=== PATIENT | male | born 1930 | race Caucasian/White ===

== ENCOUNTER 2018-01-26 14:44 | Inpatient (IN) ==
--- NOTE | 2018-01-26 14:55 | Emergency Department Report ---
General Adult HPI - General Chief complaint: Fever Stated complaint: Difficulty breathing Time Seen by Provider: 01/26/18 14:53 Source: patient, family Mode of arrival: EMS Limitations: other (dementia) - History of Present Illness HPI narrative: 87 M presents to the emergency department with the chief complaint of shortness of breath and cough. Patient noted onset of symptoms approximately 48-72 hours ago. He was at home when his symptoms began. Symptoms of been persistent in nature since onset. Patient is requiring supplemental oxygen to maintain his oxygen saturation. He denies any current pain or discomfort. Cough is productive of yellow phlegm. Patient does live on his own his own residence at this time. - Related Data Home Medications Medication Instructions Recorded Confirmed Mycophenolate Mofetil 1,500 mg PO BID 07/01/17 01/26/18 Aspirin [Aspirin EC] 81 mg PO HS 10/09/17 01/26/18 Atenolol [Tenormin] 25 mg PO HS 10/09/17 01/26/18 Atorvastatin [Lipitor] 20 mg PO HS 10/09/17 01/26/18 Hydrocodone/APAP 7.5/325 [[place] 1 tab PO Q4H PRN 10/09/17 01/26/18 7.5/325] Meloxicam 15 mg PO DAILY PRN 10/09/17 01/26/18 PredniSONE [Deltasone 20 mg] 20 mg PO WB 01/26/18 01/26/18 Previous Rx's Medication Instructions Recorded Pantoprazole Tab [Protonix Tab] 40 mg PO ACB #30 tab 11/07/17 Allergies Allergy/AdvReac Type Severity Reaction Status Date / Time No Known Drug Allergies Allergy Unknown Verified 01/26/18 15:30 Review of Systems Constitutional: Denies: fever, chills Eyes: Denies: eye pain, vision change ENT: Denies: ear pain, throat pain Cardiovascular: Denies: chest pain, palpitations Respiratory: Reports: cough, dyspnea. Denies: wheezes Gastrointestinal: Denies: abdominal pain, nausea, vomiting, diarrhea Genitourinary: Denies: urgency, dysuria Musculoskeletal: Denies: back pain, arthralgia Integumentary: Denies: erythema, rash Neurological: Denies: headache, numbness, paresthesias Psychiatric: Denies: anxiety, depression Endocrine: Denies: polydipsia, polyuria Hematological/Lymphatic: Denies: easy bruising, lymphadenopathy Allergic/Immunologic: Denies: facial swelling, urticaria PFSH Patient Stated Medical History Cataracts Yes Dysphagia Yes Coronary Artery Disease Yes Hypertension Yes Other Cardiology Yes: history DVT Other Respiratory Yes: INTERSTITIAL LUNG DISEASE; PULMONARY FIBROSIS Other GI Yes: CONSTIPATION Hx Benign Prostatic Yes Hyperplasia Hx Kidney Stones Yes Other Yes: NEPHROLITHIASIS Clotting Problems Yes: DVT Other Musculoskeletal Yes: 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 Coronary artery disease-Right and left heart catheterization (07/24/16-Dr. Lopes ) - on medical management. HTN. BPH. H/o Nephrolithiasis. H/o DVT with Sara filter placed 2007 - ASA for anticoagulation. H/o subdural bleed ( secondary to fall) 2007 (w/ surgical evacuation). Osteoporosis. History of compression fractures Surgical History: H/o subdural bleed (secondary to fall) 2007 (w/ surgical intervention x 2). Sara filter placed (2007). Ureteral surgery () ( for "kinked" ureter?). cataract removal b/l. vertebroplasty. Esophageal diltation- 2017 Family History Updates: Father -PVD- leg amputation. Mother - pt is unsure of cause of . Sister - . Pt states she of a "broken heart" as she a few weeks after her . - Social History Smoking status: Former smoker second hand exposure: No Substance use type: does not use Alcohol intake frequency: does not drink Housing: house Household members: none Current occupational status: retired Does patient use chewing tobacco?: No Current residence: Apartment/Private Home Physical Exam - Limitations Limitations: no limitations - General General appearance: alert, in no apparent distress - Normal Exams: Head:: Normocephalic without trauma Eyes:: Pupils are PERRLA w/ EOMI, No scleral icterus, irritation, or foreign bodies noted ENMT:: No facial trauma, nasal exudates, pharyngeal erythema, or exudates are noted Dental: No fractured, loose, or missing teeth noted Neck:: Full range of motion, without adenopathy, JVD, bruits or thyromegaly Chest/Respirations:: Clear all lua (Bibasilar Rales), with good airflow, and symmetry bilaterally Cardiovascular:: Regular rate and rhythm, without murmur or gallop, Pulses 2+ all extremities, capillary refill, <2 seconds all extremities Abdomen:: Bowel sounds positive, soft, non-tender, non-distended, no hepatosplenomegaly, masses or bruits noted Lymphatic:: No lymphadenopathy, or lymphedema noted Musculoskeletal:: No tenderness (2+ BLE Pedal edema. ), or deformity noted, good range of motion, all extremities Integumentary:: No rashes (Patient does have 2 small dime sized decubiti on his sacral region without extending cellulitis or lymphangitis.), hives, or bruising noted, hair and nails, without abnormality Neurological:: Patient is alert, and oriented, cranial nerves, motor/sensory/ cerebellar, exams w/o gross deficits, to observation Medical Decision Making - [facility] Narrative Medical decision making narrative: Labs/imaging were discussed in detail with the patient and family and questions are answered. Patient was given 1.5 L of normal saline intravenously in the emergency department. He was given Rocephin 1 g intravenously at 1550 when sepsis was considered when the chest x-ray was reviewed. Patient was never hypotensive in the ED and does not have a lactic acid greater than 4. Patient was given 1 g of acetaminophen for treatment of fever. He denies any pain or discomfort. Patient was discussed with the hospitalist Dr. Garner will be admitted to her service in improved condition. Patient and family are in agreement with the current plan of management. No further orders from accepting physician is in agreement with the current plan of management. Patient is admitted to the hospital in improved condition. He was given Rocephin 1 g intravenously at 1550 when sepsis was considered when the chest x-ray was reviewed. Patient was also given Zithromax 500 mg IV times one. Patient was never hypotensive in the emergency Department and his lactic acid was less than 4. - Differential Diagnosis pneumonia, viral syndrome, URI, UTI - Lab Data Result diagrams: 01/26/18 15:02 01/26/18 15:02 - Radiology Data Chest x-ray: Chronic interstitial disease with densities in bilateral lower lobes most likely representing infiltrates. - EKG Data EKG #1 EKG results narrative: Sinus tachycardia. 116 bpm. No STEMI. Disposition Clinical Impression: Pneumonia Qualifiers: Pneumonia type: due to unspecified organism Laterality: unspecified laterality Lung location: unspecified part of lung Qualified Code(s): J18.9 - Pneumonia, unspecified organism Disposition: 02 To [facility] [place] Acute Care Condition: Stable Time of Disposition: 16:15 (Ad[address]. Dr. Garner.) - Seen By: physician
--- OUTSIDE RECORDS SUMMARY | 2018-01-26 15:13 | External Medical Summary | Referral Summary ---
:1930 Author Organization [facility], Pulmonary Address [address] [place] [address] Care Team Providers Name Role Phone Ashlee Ariel Primary Care Physician Encounter [facility] Date(s): 03/19/17 - 03/19/17 [facility], [facility] [address] [place] [address]- Discharge Diagnosis: ILD (interstitial lung disease) Discharge Disposition: 01-Home or Self Care Attending Physician: Aubrey Webster MD Admitting Physician: Aubrey Webster MD Problem List Condition Effective Dates Status Health Status Informant Hyperplasia prostate unspec w/o Active urinary obst(Confirmed) Cholelithiasis(Confirmed) Active Conductive hearing loss Active unspec(Confirmed) GERD(Confirmed) Active [place] filter in [address](Confirmed) Hx DVT(Confirmed)1 Active History of intracranial 2007 Resolved hemorrhage(Confirmed)2 Hx of pulmonary embolus(Confirmed)3 2007 Resolved ILD (interstitial lung Active disease)(Confirmed) NSIP (nonspecific interstitial Active pneumonitis)(Confirmed) Pneumonia organism Active unspecified(Confirmed) 1Hx DVT/Pe with [place] filter placed 2007.2Patient was off of his aspirin for surgical repair. He required alicia hole. He developed a pulmonary embolus.3He was off of his aspirin when he had his intracranial hemorrhage alicia hole surgery. He developed apulmonary embolus. Allergies, Adverse Reactions, Alerts No Known Medication Allergies Medications Aspir 81 81 mg, Oral, Daily, 0 Refill(s) Start Date: 03/22/14 Status: Orderedatenolol 25 mg, Oral, Daily, 0 Refill(s) Start Date: 09/24/16 Status: OrderedLipitor 20 mg, Oral, Daily, 0 Refill(s) Start Date: 09/24/16 Status: Orderedmycophenolate mofetil 500 mg oral tablet 1,500 mg 3 tabs, Oral, BID, # 180 tabs, 3 Refill(s), Pharmacy: [facility] #[id number], 3 tabs OralBID,x30 days Start Date: 12/26/16 Stop Date: 04/25/17 Status: OrderedpredniSONE 20 mg oral tablet 20 mg 1 tabs, Oral, Daily, X 30 days, # 30 tabs, 5 Refill(s), Pharmacy: [facility] #[id number], 1 tabs Oral Daily,x30 days Start Date: 03/19/17 Stop Date: 09/15/17 Status: Orderedtamsulosin 0.4 mg oral capsule See Instructions, TAKE ONE CAPSULE BY MOUTH DAILY, # 30 caps, 3 Refill(s), eRx: [facility] #[id number] Start Date: 01/17/17 Status: Ordered Immunizations Given and Recorded Vaccine Date Status Refusal Reason pneumococcal 13-valent conjugate vaccine 09/21/15 Given tetanus/diphth/pertuss (Tdap) adult/adol 09/21/15 Given influenza virus vaccine, live 04/29/13 Given influenza virus vaccine, live 05/10/12 Given Procedures Procedure Date Related Diagnosis Body Site Wallace hole1 2007 Evacuation of intracranial hemorrhage 2007 Sara filter, device Ureter surgery2 1Treatment of intracranial [id number]'s Social History Social History Type Response Smoking Status Former smoker; Type: Cigarettes; Started at age: 17; Stopped at age: 38; entered on: 03/22/14
--- OUTSIDE RECORDS SUMMARY | 2018-01-26 15:13 | External Medical Summary | Referral Summary ---
:1930 Author Organization [facility] Address [address] [place] [address] Care Team Providers Name Role Phone Ariel Rosado Primary Care Physician Encounter [facility] [id number] Date(s): 10/29/16 - 10/29/16 [facility] [address] [place] [address]- us Discharge Diagnosis: Dyspnea on exertion Discharge Diagnosis: Hx DVT Discharge Diagnosis: NSIP (nonspecific interstitial pneumonitis) Discharge Disposition: 01-Home or Self Care Attending Physician: Aubrey Webster MD Admitting Physician: Aubrey Webster MD Vital Signs Most recent to oldest [Reference Range]: 1 Peripheral Pulse Rate [60-100 bpm] 63 bpm (10/29/16 9:44 AM) Respiratory Rate [14-20 br/min] 20 br/min (10/29/16 9:44 AM) Blood Pressure [90-140/60-90 mmHg] 102/62 mmHg (10/29/16 9:44 AM) SpO2 95 % (10/29/16 9:44 AM) Problem List Condition Effective Dates Status Health Status Informant Hyperplasia prostate unspec w/o Active urinary obst(Confirmed) Cholelithiasis(Confirmed) Active Conductive hearing loss Active unspec(Confirmed) GERD(Confirmed) Active [place] filter in [address](Confirmed) Hx DVT(Confirmed)1 Active History of intracranial 2007 Resolved hemorrhage(Confirmed)2 Hx of pulmonary embolus(Confirmed)3 2007 Resolved Pneumonia organism Active unspecified(Confirmed) 1Hx DVT/Pe with [...] Daily, 0 Refill(s) Start Date: 09/24/16 Status: OrderedFlomax 0.4 mg oral capsule 0.4 mg 1 caps, Oral, Daily, # 30 caps, 5 Refill(s), Pharmacy: [facility] # [id number], 1 caps Oral Daily Start Date: 07/12/16 Status: OrderedLipitor 20 mg, Oral, Daily, 0 Refill(s) Start Date: 09/24/16 Status: Orderedmycophenolate mofetil 500 mg oral tablet See Instructions, Take 1 tablet twice a day X 21 days, then increase to 2 tabs twice a day. 1 hourbefore or 2 hours after meals DX: J84.9, # 120 Each, 3 Refill(s), Pharmacy: [facility] #[id number], Take 1 tablet twice a day X 21 days, then incr... Start Date: 10/29/16 Status: OrderedpredniSONE 20 mg oral tablet 40 mg 2 tabs, Oral, Daily, X 30 days, # 60 tabs, 6 Refill(s), Pharmacy: [facility] #[id number], 2 tabs Oral Daily,x30 days Start Date: 09/24/16 Stop Date: 04/22/17 Status: Ordered Results Hematology Most recent to oldest [Reference Range]: 1 WBC [4.8-10.8 10*3/uL] 8.2 10*3/uL (10/29/16 10:50 AM) RBC [4.60-6.20] 5.00 (10/29/16 10:50 AM) Hgb [14.0-18.0 gm/dL] 15.1 gm/dL (10/29/16 10:50 AM) Hct [42.0-52.0 %] 45.2 % (10/29/16 10:50 AM) MCV [82.0-99.0 fL] 90.4 fL (10/29/16 10:50 AM) MCH [27.0-32.0 pg] 30.2 pg (10/29/16 10:50 AM) MCHC [32.0-36.0 gm/dL] 33.4 gm/dL (10/29/16 10:50 AM) RDW [11.5-14.5 %] 14.1 % (10/29/16 10:50 AM) Platelet [150-400 10*3/uL] 240 10*3/uL (10/29/16 10:50 AM) MPV [8.8-14.8 fL] 9.1 fL (10/29/16 10:50 AM) Immature Granulocytes [0.0-1.0 %] 0.2 % (10/29/16 10:50 AM) Neutrophils [51-75 %] 93 % *HI* (10/29/16 10:50 AM) Lymphocytes [20-46 %] 4 % *LOW* (10/29/16 10:50 AM) Monocytes [4-11 %] 3 % *LOW* (10/29/16 10:50 AM) Eosinophils [0-4 %] 0 % (10/29/16 10:50 AM) Basophils [0-2 %] 0 % (10/29/16 10:50 AM) Neutro Absolute [1.90-7.00] 7.63 *HI* (10/29/16 10:50 AM) Lymph Absolute [0.80-3.30] 0.33 *LOW* (10/29/16 10:50 AM) Bay Absolute [0.30-1.00] 0.21 *LOW* (10/29/16 10:50 AM) Eos Absolute [0.00-0.50] 0.00 (10/29/16 10:50 AM) Baso Absolute [0.00-0.20] 0.01 (10/29/16 10:50 AM) Differential Scanned Slide (10/29/16 10:50 AM) Chemistry Most recent to oldest [Reference Range]: 1 Creatinine Lvl [0.72-1.25 mg/dL] 0.88 mg/dL (10/29/16 10:50 AM) eGFR [>60 mL/min] >60 mL/min 1 (10/29/16 10:50 AM) 1Result Comment: Multiply eGFR results by 1.21 for race. Immunizations Given and Recorded Vaccine Date Status Refusal Reason tetanus/diphth/pertuss (Tdap) adult/adol 09/21/15 Given influenza virus vaccine, live 04/29/13 Given influenza virus vaccine, live 05/10/12 Given pneumococcal 13-valent conjugate vaccine 09/21/15 Given Procedures Procedure Date Related Diagnosis Body Site Alicia hole1 2007 Evacuation of intracranial hemorrhage 2007 Sara filter, device Ureter surgery2 1Treatment of intracranial [id number]'s Social History Social History Type Response Smoking Status Former smoker; Type: Cigarettes; Started at age: 17; Stopped at age: 38 Assessment and Plan Extracted from: Title: Clinical Document Author: Amalia Waller RN Date: 10/29/16 Mycophenolate 500mg instructions: Take 1 tablet twice a day through November 17. Then, increase to 2 tablets twice a day. Prednisone 10mg instructions: Take 3 tablets daily through November 12, then decrease to 2 tablets daily through November 26, then decrease to 1 tablet daily until follow-up appointment in December Lab work instructions: Have blood drawn today, then once your start medication have lab work done once a week for 4 weeks then you can go every other week for 4 weeks or 2 more blood draws, then you can go to monthly blood draws. Return visit scheduled in December. If you have any questions or concerns call [phone] option 2, then option 2 and speak to one of the nurses.
--- NOTE | 2018-01-26 15:44 | XRay Report ---
EXAM: XR chest 1V HISTORY: cough COMPARISON: Prior examination dated 10/20/2017 and high-resolution CT scan of the chest dated 01/20/2018 FINDINGS: The lung lua are hypoventilated. The patient is rotated which somewhat limits the evaluation but there is no obvious tracheal deviation from the midline or mediastinal widening. The heart appears upper limits of normal size which is likely artifactual due to the hypoventilated state. There are again noted diffuse bilateral fibrotic lung changes but there is increased density superimposed at the lung bases which could be due to superimposed atelectasis or early infiltrate. The costophrenic angles remain clear. The bony thorax is stable. IMPRESSION: 1. Chronic fibrotic lung changes are again evident. The lung lua are hypoventilated with increased density at the lung bases that may be due to atelectasis or early infiltrate. .
[2018-01-26] MEDS ORDERED: ACETAMINOPHEN 500 MG TABLET PO SCH (15:45)
[2018-01-26] MEDS ORDERED: CEFTRIAXONE (ER USE ONLY) 1 GM in NS 100 ML IV ONE (15:50)
[2018-01-26] MEDS ORDERED: AZITHROMYCIN IV 500 MG in NS 250ml 250 ML IV ONE (16:21)
[2018-01-26] MEDS ORDERED: PROCHLORPERAZINE 10 MG/2 ML INJECTION IVP PRN (17:37)
[2018-01-26] MEDS ORDERED: MENTHOL COUGH DROPS (RICOLA) MM PRN (17:37)
[2018-01-26] MEDS ORDERED: ALBUTEROL/IPRATROPIUM 2.5mg-0.5mg/3ml NEB AEROSOL PRN (17:37)
[2018-01-26] MEDS ORDERED: FALL RISK - PHARMACY CONSULT MC ONE (17:57)
--- NOTE | 2018-01-26 18:55 | History & Physical Report ---
History of Present Illness Date: 01/26/18 Chief complaint: Fever, difficulty breathing HPI: Mr Negron is an 87 y/o male with interstitial lung disease and CAD who presents to [facility] ED via EMS secondary to fevers and difficulty breathing. Patient 's daughter reports he was very functional (able to drive around all over without problems) until the start of this year when he developed significant functional decline. He was hospitalized at [facility] in October of this very due to weakness and dehydrations - thought to be exacerbation of his interstitial lung disease. 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 Has established with Dr Ayala for pulmonary care now that Dr Webster retired. Started on home O2 2 weeks ago. With O2, saturations doing well when he is at rest, but drop as he is active. Reports increasing SOA over the last week. Not having cough/congestion or pain with breathing. Progressively more weak and unsteady with more dramatic decrease today. EMS activated. Given IVF Enroute to hospital. In ED, temp elevated at 102.5 and patient tachycardic with HR in 109 to 118 range. WBC with elevation to 11.6. CXR showing increasing density to lower lung field concerning for pneumonia. As patient meeting sepsis criteria, admitted to [facility] for further care and evaluation. Anticipated length of stay is thought to be greater than 2 midnight. Review of Systems - Constitutional Constitutional: Present: anorexia, fatigue, fever(s), weight loss - EEUTT Eyes: Absent: blurry vision, change in vision Ears: Absent: ear pain, tinnitus Nose: Absent: obstruction Mouth/Throat: Present: dry mouth. Absent: painful swallowing - Cardiovascular Cardiovascular: Present: edema. Absent: chest pain, palpitations - Respiratory Respiratory: Present: dyspnea, dyspnea on exertion. Absent: cough, pain on inspiration, chest congestion, excessive phlegm production - Gastrointestinal Gastrointestinal: Absent: abdominal pain, constipation, diarrhea, nausea, odynophagia, vomiting - Genitourinary Genitourinary: Present: nocturia. Absent: urinary frequency, urinary urgency - Musculoskeletal Musculoskeletal: Present: abnormal gait, back pain, muscle weakness. Absent: muscle cramps - Integumentary/Breasts Integumentary: Absent: rash - Neurological Neurological: Absent: focal weakness, memory loss - Endocrine Endocrine: Absent: excessive sweating, flushing - Allergic/Immunologic Allergic/Immunologic: Absent: tongue swelling, throat swelling, lip swelling Past Medical History Medical History Updates: Interstitial lung disease- on chronic steroids. Coronary artery disease-Right and left heart catheterization (07/24/16-Dr. Lopes ) - on medical management. HTN. BPH. H/o Nephrolithiasis. H/o DVT with [place] filter placed 2007 - ASA for anticoagulation. H/o subdural bleed ( secondary to fall) 2007 (w/ surgical evacuation). Osteoporosis. History of compression fractures Surgical History: H/o subdural bleed (secondary to fall) 2007 (w/ surgical intervention x 2). [place] filter placed (2007). Ureteral surgery () ( for "kinked" ureter?). cataract removal b/l. vertebroplasty. Esophageal diltation- 2017 Family History: Father had ASPVD - had leg amputation Mother has , cause of unknown Sister . Family History: As Above - Social History Smoking status: Former smoker Substance use type: does not use Alcohol intake frequency: does not drink Housing: house Household members: none ([place] checks on him frequently) Current occupational status: retired Current residence: Apartment/Private Home Social history: Dr Doll - PCP. Dr Lopes - Cardiology. Dr Ayala - Pulm. Medications Home Medications Medication Instructions Recorded Confirmed Type RX: Mycophenolate Mofetil 1,500 mg PO BID 07/01/17 01/26/18 History RX: Aspirin [Aspirin EC] 81 mg PO HS 10/09/17 01/26/18 History RX: Atenolol [Tenormin] 25 mg PO HS 10/09/17 01/26/18 History RX: Atorvastatin [Lipitor] 20 mg PO HS 10/09/17 01/26/18 History RX: Hydrocodone/APAP 7.5/325 1 tab PO Q4H PRN 10/09/17 01/26/18 History [[place] 7.5/325] RX: Meloxicam 15 mg PO DAILY PRN 10/09/17 01/26/18 History RX: Pantoprazole Tab [Protonix Tab] 40 mg PO ACB #30 tab 11/07/17 01/26/18 Rx PredniSONE [Deltasone 20 mg] 20 mg PO WB 01/26/18 01/26/18 History Allergies Allergy/AdvReac Type Severity Reaction Status Date / Time No Known Drug Allergies Allergy Unknown Verified 01/26/18 15:30 Exam Vital Signs: Temperature 100.1 F 01/26/18 17:06 Pulse Rate 97 01/26/18 18:26 Respiratory Rate 24 01/26/18 17:06 Blood Pressure 88/53 01/26/18 18:26 Pulse Oximetry 93 01/26/18 18:26 Height/Weight/BMI: Height 1.8 m Weight 56 kg Body Mass Index 17.2 - Constitutional Present: mild distress, well developed, thin, cooperative. Absent: combative, agitated, somnolent, obtunded - Routine HEENT Exam Head: Present: normocephalic, atraumatic Eye: Present: EOMI, PERRL, normal accommodation. Absent: conjunctival icterus ENT: Present: mucous membranes dry. Absent: dentition normal (Wears dentures) - Routine Neck Exam Present: supple, trachea midline. Absent: tracheal deviation - Routine Respiratory Exam Present: decreased breath sounds, prolonged expiratory phase, crackles ( fibrotic crackles diffusely), diminished air movement - Routine Cardiovascular Exam Present: no murmur, tachycardia - Routine Abdominal Exam Present: soft, non distended, non tender. Absent: normoactive bowel sounds ( decreased), rebound, guarding - Routine Extremities Exam Present: edema (+2 BLE), pulses intact, normal capillary refill. Absent: cyanosis, clubbing - Routine Skin Exam Present: dry, warm - Routine Neurological Exam Present: alert, oriented X3, CN II-XII intact, moving all extremities, vision grossly intact, hearing grossly intact, normal speech. Absent: motor deficit, altered mental status - Routine Psychiatric Exam Present: normal affect, normal thought process, cooperative. Absent: anxious, agitated Results - Labs CBC & Chem 7: 01/26/18 15:02 01/26/18 15:02 Assessment and Plan Assessment and Plan: Assessment Sepsis syndrome manifested by temp elevation to 102.5, tachycardia and tachypnea Pneumonia Interstitial lung disease with worsening respiratory status. Chronic hypoxic respiratory failure - on home O2 Functional decline Gait instability/Gen debility LE edema CAD HTN HDL GERD/esophageal stricture - S/P dilatation 11/07/17 Dysphagia - improved post esophageal stricture BPH Osteoporosis Underweight with BMI 17.2 Hx compression fracture to back - chronic back pain Hx kidney stones Hx [place] filter placement in 2007 Plan Inpatient admission to [facility] for treatment of sepsis syndrome secondary to pulmonary source. Initiate ceftriaxone and azithromycin for pulmonary coverage. Will utilize neb treatments of DuoNeb QID and q 4prn along with budesonide BID. Start Solu-Medrol 125mg IV q 6 hours to decrease pulmonary inflammation. Consult with Dr Ayala for pulmonary evaluation and recommendations. IVF given via EMS. Will give bolus of 500cc and then continue NS with 20 KCl at 100 cc/hr. Recheck lactate. Speech consult secondary to dysphagia. Continue Protonix BID. PT/OT consult to help improve strength and functional abilities. SCD for DVT prevention. Check TSH secondary to fatigue and functional decline. Check Prealbumin due to underweight. May continue home medications. Discussed code status with patient and his daughter - does have some ambivalence. Will have status full code. Care to return to Dr Doll at time of discharge from [facility]. DVT Prophylaxis: SCD's GI Prophylaxis: Protonix Resuscitation Status: Full Code - Physician Narrative Physician: Omar Arshad MD Narrative: Date: 01/26/18 Time: 184 Hospital Course Summary Disclaimer: The visit summary below is not to be considered part of the above Progress Note. Hospital Course: 01/26/18 Inpatient admission to [facility] for treatment of sepsis syndrome secondary to pulmonary source. Initiate ceftriaxone and azithromycin for pulmonary coverage. Will utilize neb treatments of DuoNeb QID and q 4prn along with budesonide BID. Start Solu-Medrol 125mg IV q 6 hours to decrease pulmonary inflammation. Consult with Dr Ayala for pulmonary evaluation and recommendations. IVF given via EMS. Will give bolus of 500cc and then continue NS with 20 KCl at 100 cc/hr. Recheck Lactate. Speech consult secondary to dysphagia. Continue Protonix BID. PT/OT consult to help improve strength and functional abilities. SCD for DVT prevention. Check TSH secondary to fatigue and functional decline. Check Prealbumin due to underweight. May continue home medications. Discussed code status with patient and his daughter - does have some ambivalence. Will have status full code. Care to return to Dr Doll at time of discharge from [facility].
[2018-01-26] MEDS: ALBUTEROL/IPRATROPIUM 2.5mg-0.5mg/3ml NEB AEROSOL SCH (18:57)
[2018-01-26] MEDS: BUDESONIDE INH.SOLN 0.5mg/2ml NEB AEROSOL SCH (18:57)
[2018-01-26] MEDS: METHYLPREDNISOLONE SOD SUCC 125mg/2ml INJECTION IVP SCH ×2 (19:30→21:41)
[2018-01-26] MEDS: NS with KCL 20 mEq 1,000 ML IV SCH (19:31)
[2018-01-26] MEDS: PANTOPRAZOLE 40 MG TABLET PO SCH (19:31)
[2018-01-26] MEDS ORDERED: NS 1,000 ML IV ONE (19:43)
[2018-01-26] MEDS: MELOXICAM 15 MG TABLET PO PRN ×2 (20:51→20:54)
[2018-01-26] MEDS: ATORVASTATIN 20 MG TABLET PO SCH (20:52)
[2018-01-26] MEDS: ATENOLOL 25 MG TABLET PO SCH (20:52)
[2018-01-26] MEDS: GUAIFENESIN/D-METHORPHAN 600mg/30mg TABLET PO SCH (20:53)
[2018-01-26] MEDS: ASPIRIN *EC* 81 MG TABLET PO SCH (21:12)
[2018-01-27] MEDS: NS with KCL 20 mEq 1,000 ML IV SCH ×2 (00:29→06:13)
[2018-01-27] MEDS: METHYLPREDNISOLONE SOD SUCC 125mg/2ml INJECTION IVP SCH ×4 (04:05→20:54)
[2018-01-27] MEDS: ALBUTEROL/IPRATROPIUM 2.5mg-0.5mg/3ml NEB AEROSOL SCH ×4 (06:29→18:36)
[2018-01-27] MEDS ORDERED: PANTOPRAZOLE 40 MG TABLET PO SCH (06:30)
[2018-01-27] MEDS: BUDESONIDE INH.SOLN 0.5mg/2ml NEB AEROSOL SCH ×2 (06:31→18:36)
[2018-01-27] MEDS: PANTOPRAZOLE 40 MG TABLET PO SCH ×2 (06:41→17:19)
[2018-01-27] MEDS: ACETAMINOPHEN 325 MG TABLET PO PRN ×2 (08:11→13:02)
[2018-01-27] MEDS: GUAIFENESIN/D-METHORPHAN 600mg/30mg TABLET PO SCH ×2 (08:11→20:55)
--- NOTE | 2018-01-27 10:12 | Progress Note ---
- Date 01/27/18 Subjective: F/U: Sepsis syndrome, Bacteremia, Pneumonia, Interstitial lung disease Doing okay this morning. Breathing about the same. No pain with breathing. Little congestion. Appetite stable. No nausea or vomiting. Denies ab pain. Did work with therapy-walked in halls. Weak in general. Objective Vital signs: Temperature 96.0 F L 01/27/18 07:37 Pulse Rate 82 01/27/18 07:37 Respiratory Rate 14 01/27/18 07:37 Blood Pressure 116/65 01/27/18 07:37 Pulse Oximetry 97 01/27/18 07:37 Height/Weight/BMI: Height 1.8 m Weight 61.9 kg Body Mass Index 17.2 - Constitutional Present: well developed, thin, cooperative - Routine HEENT Exam Head: Present: normocephalic, atraumatic Eye: Present: EOMI, PERRL ENT: Present: mucous membranes moist - Routine Respiratory Exam Present: decreased breath sounds, crackles (Diffuse faint), diminished air movement. Absent: respiratory distress - Routine Cardiovascular Exam Present: RRR, no murmur - Routine Abdominal Exam Present: soft, non distended, non tender. Absent: normoactive bowel sounds ( Decrease), guarding - Routine Extremities Exam Present: edema (+2 BLE). Absent: cyanosis, clubbing - Routine Musculoskeletal Exam Musculoskeletal: Present: no clubbing or cyanosis - Routine Skin Exam Present: dry, warm - Routine Neurological Exam Present: alert, oriented X3, CN II-XII intact, vision grossly intact, hearing grossly intact, normal speech. Absent: motor deficit, altered mental status - Routine Psychiatric Exam Present: normal affect, normal thought process, cooperative Results - Labs CBC & Chem 7: 01/27/18 05:40 01/27/18 05:40 Microbiology Results: Microbiology 01/26/18 15:08 Peripheral/Iv Start Gram Stain - Final 01/26/18 15:08 Peripheral/Iv Start Blood Culture - Preliminary Gram Negative Terrence 01/26/18 15:02 Peripheral/Iv Start Gram Stain - Final 01/26/18 15:02 Peripheral/Iv Start Blood Culture - Preliminary Gram Negative Terrence Assessment and Plan Assessment and Plan: Assessment Sepsis syndrome manifested by temp elevation to 102.5, tachycardia and tachypnea Bacteremia with Gram Neg Terrence Pneumonia Interstitial lung disease with worsening respiratory status. Chronic hypoxic respiratory failure - on home O2 at 2L Functional decline Gait instability/Gen debility LE edema CAD HTN HDL GERD/esophageal stricture - S/P dilatation 11/07/17 Dysphagia - improved post esophageal stricture BPH Osteoporosis Severe Protein Calorie malnutrition Underweight with BMI 17.2 Hx compression fracture to back - chronic back pain Hx kidney stones Hx [place] filter placement in 2007 Plan Continue ceftriaxone and azithromycin for pulmonary coverage. With positive Blood cultures, will repeat. Continue neb treatments of DuoNeb QID and q 4prn along with budesonide BID. Decrease Solu-Medrol to 62.5mg IV q 6 hours. Decrease IVF to 50cc/hr as oral drive starting to increase. PT/OT/Speech initiated to help improve functional status. Recheck CBC in am due to sepsis syndrome. Recheck BMP in am secondary to IVF. Case discussed with patient's daughter. Time spent with patient care 25 minutes. DVT Prophylaxis: SCD's GI Prophylaxis: Protonix Resuscitation Status: Full Code - Time spent with patient Time with patient PN: 25 minutes - Physician Narrative Physician: Omar Arshad MD Narrative: Date: 01/27/18 Time: 1009 Hospital Course Summary Disclaimer: The visit summary below is not to be considered part of the above Progress Note. Hospital Course: 01/26/18 Inpatient admission to [facility] for treatment of sepsis syndrome secondary to pulmonary source. Initiate ceftriaxone and azithromycin for pulmonary coverage. Will utilize neb treatments of DuoNeb QID and q 4prn along with budesonide BID. Start Solu-Medrol 125mg IV q 6 hours to decrease pulmonary inflammation. Consult with Dr Ayala for pulmonary evaluation and recommendations. IVF given via EMS. Will give bolus of 500cc and then continue NS with 20 KCl at 100 cc/hr. Recheck Lactate. Speech consult secondary to dysphagia. Continue Protonix BID. PT/OT consult to help improve strength and functional abilities. SCD for DVT prevention. Check TSH secondary to fatigue and functional decline. Check Prealbumin due to underweight. May continue home medications. Discussed code status with patient and his daughter - does have some ambivalence. Will have status full code. Care to return to Dr Doll at time of discharge from [facility]. 01/27/18 Continue ceftriaxone and azithromycin for pulmonary coverage. With positive Blood cultures, will repeat. Continue neb treatments of DuoNeb QID and q 4prn along with budesonide BID. Decrease Solu-Medrol to 62.5mg IV q 6 hours. Decrease IVF to 50cc/hr as oral drive starting to increase. PT/OT/Speech initiated to help improve functional status.
[2018-01-27] MEDS: 1/2 NS with KCL 20mEq 1,000 ML IV SCH (10:35)
[2018-01-27] MEDS ORDERED: PNEUMOCOCCAL 13 VACCINE 0.5ml INJECTION IM ONE (13:15)
--- NOTE | 2018-01-27 14:21 | Wound Care Progress Note ---
Wound Management - Patient Status Premedicated Prior to Dressing Change: No - Wound Right Medial Buttock Wound Type: Pressure Injury Wound Present on Admission?: Yes Wound Staging: Stage III (Pt states this spot comes and goes depending on how much he is sitting. He states he has been sitting alot lately) Length: 0.8 Width: 0.8 Depth: 0.1 Wound Bed Appearance: Slough Eva Wound Appearance: [place] Tunneling: No Undermining: No Drainage Description: Sanguineous Dressing Status: Changed Primary Dressing: Silver Dressing Secondary Dressing: Foam Dressing Dressing Change Date: 01/27/18 Dressing Change Time: 14:20 Dressing Change Patient Tolerance: Tolerated Well (Will reassess in 3 days) Microbiology: Microbiology 01/26/18 15:08 Peripheral/Iv Start Gram Stain - Final 01/26/18 15:08 Peripheral/Iv Start Blood Culture - Preliminary Gram Negative Terrence 01/26/18 15:02 Peripheral/Iv Start Gram Stain - Final 01/26/18 15:02 Peripheral/Iv Start Blood Culture - Preliminary Gram Negative Terrence Medial Back Wound Type: Pressure Injury Wound Present on Admission?: Yes Eva Wound Appearance: Blanched/Dull (Pt has a significant curvature of the spine and it is red and blanchable. No open areas. Encouraged pt to stay off his back.) Microbiology: Microbiology 01/26/18 15:08 Peripheral/Iv Start Gram Stain - Final 01/26/18 15:08 Peripheral/Iv Start Blood Culture - Preliminary Gram Negative Terrence 01/26/18 15:02 Peripheral/Iv Start Gram Stain - Final 01/26/18 15:02 Peripheral/Iv Start Blood Culture - Preliminary Gram Negative Terrence
[2018-01-27] MEDS: CEFTRIAXONE 1 G in D5W 100 ML IV SCH (15:14)
[2018-01-27] MEDS: AZITHROMYCIN IV 500 MG in NS 250ml 250 ML IV SCH (16:12)
--- NOTE | 2018-01-27 17:27 | Pulmonology Consult Note ---
History of Present Illness Consult date: 01/27/18 Requesting physician: Omar Arshad Reason for consult: dyspnea, pulmonary fibrosis Chief complaint: shortness of breath History of present illness: This is an 87 year old male with history of ILD. As reported by patient: Quality: dyspnea; shortness of breath on exertion with walking or carrying things. Stopping to rest relieves it. has an IVC filter due to history of PE Severity: moderate; limits activity Onset/Timing: daily Context: walking on level ground; walking up inclines; walking up stairs Pulmonary Disease History: ILD, followed and treated by Dr Aubrey Webster. I saw him in the office 01/13/18 for evaluation. Taking Cellcept and Prednisone. Alleviating Factors: relieved with rest Aggravating Factors: activity, felt to be due to history of woodworking Associated Symptoms: no chest pain; mild sputum production. Was seeing Dr Webster for ILD. He is treated with mycophenolate 1500 BID, and prednisone 20 mg daily. He started treatment for ILD around May 2017. He believes that this regimen was helping until recently and now he is feeling shortness of breath again. 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 He is hospitalized now for worsening dyspnea. He has been falling which may possibly be related to weakness and shortness of breath. According to the admission notes: He was hospitalized at [facility] in October of this very due to weakness and dehydrations - thought to be exacerbation of his interstitial lung disease. 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 In ED, temp elevated at 102.5 and patient tachycardic with HR in 109 to 118 range. WBC with elevation to 11.6. CXR showing increasing density to lower lung field concerning for pneumonia. As patient meeting sepsis criteria, admitted to [facility] for further care and evaluation. 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 Coronary artery disease-Right and left heart catheterization (07/24/16-Dr. Lopes ) - on medical management. HTN. BPH. H/o Nephrolithiasis. H/o DVT with [place] filter placed 2007 - ASA for anticoagulation. H/o subdural bleed ( secondary to fall) 2007 (w/ surgical evacuation). Osteoporosis. History of compression fractures Surgical History: H/o subdural bleed (secondary to fall) 2007 (w/ surgical intervention x 2). [place] filter placed (2007). Ureteral surgery () ( for "kinked" ureter?). cataract removal b/l. vertebroplasty. Esophageal diltation- 2017 Family History Updates: Father -PVD- leg amputation. Mother - pt is unsure of cause of . Sister - . Pt states she of a "broken heart" as she a few weeks after her . - Social History Smoking status: Former smoker second hand exposure: No Substance use type: does not use Alcohol intake frequency: does not drink Housing: house Household members: none Current occupational status: retired Does patient use chewing tobacco?: No Current residence: Apartment/Private Home Medications Home Medications Medication Instructions Recorded Confirmed Type Mycophenolate Mofetil 1,500 mg PO BID 07/01/17 01/26/18 History Aspirin [Aspirin EC] 81 mg PO HS 10/09/17 01/26/18 History Atenolol [Tenormin] 25 mg PO HS 10/09/17 01/26/18 History Atorvastatin [Lipitor] 20 mg PO HS 10/09/17 01/26/18 History Hydrocodone/APAP 7.5/325 [[place] 1 tab PO Q4H PRN 10/09/17 01/26/18 History 7.5/325] Meloxicam 15 mg PO DAILY PRN 10/09/17 01/26/18 History Pantoprazole Tab [Protonix Tab] 40 mg PO ACB #30 tab 11/07/17 01/26/18 Rx PredniSONE [Deltasone 20 mg] 20 mg PO WB 01/26/18 01/26/18 History Allergies Allergy/AdvReac Type Severity Reaction Status Date / Time No Known Drug Allergies Allergy Unknown Verified 01/26/18 15:30 Exam Vital signs: Temperature 95.4 F L 07/10/18 15:00 Pulse Rate 82 01/27/18 15:00 Respiratory Rate 16 01/27/18 15:00 Blood Pressure 106/60 01/27/18 15:00 Pulse Oximetry 100 01/27/18 15:00 - Constitutional no acute distress, thin - Routine HEENT Exam Head: Present: normocephalic, atraumatic Eye: Absent: conjunctival icterus ENT: Present: mucous membranes moist - Routine Neck Exam Present: supple. Absent: JVD - Routine Respiratory Exam Present: crackles. Absent: wheezes - Routine Cardiovascular Exam Present: RRR - Routine Abdominal Exam Present: soft - Routine Extremities Exam Absent: cyanosis, clubbing - Routine Skin Exam Present: intact. Absent: rash - Routine Neurological Exam Present: alert, oriented X3 Results - Laboratory Findings CBC and BMP: 01/27/18 05:40 01/27/18 05:40 Abnormal lab findings: Abnormal Labs 01/26/18 01/26/18 01/26/18 15:02 15:02 15:02 WBC 11.6 H RBC 3.53 L Hgb 10.6 L Hct 34.4 L MCHC 30.8 L RDW Std Deviation MPV 9.2 L Neutrophils % (Manual) 98.0 H Band Neutrophils % Lymphocytes % (Manual) Neutrophils # (Manual) 11.4 H Lymphocytes # (Manual) Chloride BUN 28.0 H Creatinine BUN/Creatinine Ratio 35 H Glucose Calculated Osmolality Calcium 7.6 L NT-Pro-B Natriuret Pep 2910 H Total Protein 5.1 L Albumin 2.7 L Prealbumin Vitamin B12 Urine Protein Urine Ketones Urine Occult Blood Urine Bilirubin Urine RBC 01/26/18 01/26/18 01/27/18 15:26 19:23 05:40 WBC RBC 3.08 L Hgb 9.4 L D Hct 30.5 L D MCHC 30.8 L RDW Std Deviation 51.5 H MPV Neutrophils % (Manual) 90.0 H Band Neutrophils % 9.0 H Lymphocytes % (Manual) 1.0 L Neutrophils # (Manual) Lymphocytes # (Manual) 0.1 L Chloride BUN Creatinine BUN/Creatinine Ratio Glucose Calculated Osmolality Calcium NT-Pro-B Natriuret Pep Total Protein Albumin Prealbumin 3.9 L Vitamin B12 > 1000 H Urine Protein Trace A Urine Ketones Trace A Urine Occult Blood 3+ A Urine Bilirubin 1+ A Urine RBC 20-30 H 01/27/18 05:40 WBC RBC Hgb Hct MCHC RDW Std Deviation MPV Neutrophils % (Manual) Band Neutrophils % Lymphocytes % (Manual) Neutrophils # (Manual) Lymphocytes # (Manual) Chloride 112 H BUN 24.0 H Creatinine 0.6 L D BUN/Creatinine Ratio 40 H Glucose 111 H Calculated Osmolality 282 H Calcium 6.6 L D NT-Pro-B Natriuret Pep Total Protein Albumin Prealbumin Vitamin B12 Urine Protein Urine Ketones Urine Occult Blood Urine Bilirubin Urine RBC - Diagnostic Findings Chest x-ray: report reviewed, image reviewed CT scan - chest: report reviewed, image reviewed Assessment and Plan (1) Acute and chronic respiratory failure with hypoxia Status: Acute Assessment and plan: continue O2 by NC (currently 2 lpm at rest) to keep sat >90%. Exercise oximetry with O2 titration. I suspect he will need higher O2 flows with exertion. 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 He is currently being managed on Cellcept and Predisone. I agree with IV corticosteroids at this time and will hold Cellcept. It is unclear whether the Cellcept is adding a great deal to his care at this time and we will discuss the possibility of stopping Cellcept and monitoring closely. He is scheduled for a PFT this Friday and we will defer that for now. Current Visit: Yes (3) Pneumonia Status: Acute Assessment and plan: Agree with empiric antibiotic with Rocephin and Azithromycin. He seems to be responding to this regimen as his fever is resolved Current Visit: Yes - Time Spent With Patient Total time spent is greater than 50% in coordination of care (as documented) at patient's floor/unit and/or counseling patient: 25 - 35 minutes
[2018-01-27] MEDS: ATENOLOL 25 MG TABLET PO SCH (20:55)
[2018-01-27] MEDS: ATORVASTATIN 20 MG TABLET PO SCH (20:55)
[2018-01-27] MEDS: ASPIRIN *EC* 81 MG TABLET PO SCH (20:55)
[2018-01-28] MEDS: METHYLPREDNISOLONE SOD SUCC 125mg/2ml INJECTION IVP SCH ×4 (03:15→21:45)
[2018-01-28] MEDS: PANTOPRAZOLE 40 MG TABLET PO SCH ×2 (06:05→16:28)
[2018-01-28] MEDS: ALBUTEROL/IPRATROPIUM 2.5mg-0.5mg/3ml NEB AEROSOL SCH ×4 (08:08→19:58)
[2018-01-28] MEDS: GUAIFENESIN/D-METHORPHAN 600mg/30mg TABLET PO SCH ×2 (09:02→21:45)
[2018-01-28] MEDS: 1/2 NS with KCL 20mEq 1,000 ML IV SCH (10:01)
[2018-01-28] MEDS ORDERED: FUROSEMIDE 20 MG/2 ML INJECTION IVP ONE (11:33)
--- NOTE | 2018-01-28 11:38 | Progress Note ---
- Date 01/28/18 Subjective: Mr Negron is seen this morning while resting in bed. He is chronically on 2 liters by nasal canula and is currently tolerating this. He denies having pain or feeling short of breath. Appetite has been decreased as he only at 50% of breakfast. He is noted to have extremity edema to both legs and arms. Abraham cath inplace. Objective Vital signs: Temperature 95.6 F L 01/28/18 07:00 Pulse Rate 84 01/28/18 07:00 Respiratory Rate 20 01/28/18 08:09 Blood Pressure 113/63 01/28/18 07:00 Pulse Oximetry 97 01/28/18 09:32 Height/Weight/BMI: Height 1.8 m Weight 62.1 kg Body Mass Index 19.0 - Constitutional Present: no acute distress, well nourished, well developed - Routine HEENT Exam Eye: Present: EOMI ENT: Present: mucous membranes moist, dentition normal - Routine Respiratory Exam Present: diminished air movement. Absent: wheezes - Routine Cardiovascular Exam Present: RRR, S1, S2. Absent: murmur - Routine Abdominal Exam Present: soft, normoactive bowel sounds, non distended. Absent: tenderness - Routine Extremities Exam Present: edema (bilateral arms and bilateral legs) - Routine Skin Exam Present: dry, warm - Routine Neurological Exam Present: alert, oriented X3, CN II-XII intact - Routine Lymphatic Exam Lymphatic: Absent: adenopathy - Routine Psychiatric Exam Present: normal affect, cooperative Results - Labs CBC & Chem 7: 01/28/18 04:51 01/28/18 04:51 Microbiology Results: Microbiology 01/26/18 15:08 Peripheral/Iv Start Gram Stain - Final 01/26/18 15:08 Peripheral/Iv Start Blood Culture - Final Escherichia coli 01/26/18 15:02 Peripheral/Iv Start Gram Stain - Final 01/26/18 15:02 Peripheral/Iv Start Blood Culture - Final Escherichia coli 01/28/18 04:51 Peripheral/Iv Start Blood Culture - Preliminary Culture Initiated - Results Pending 01/28/18 04:57 Peripheral/Iv Start Blood Culture - Preliminary Culture Initiated - Results Pending Assessment and Plan Assessment and Plan: Assessment Sepsis syndrome manifested by temp elevation to 102.5, tachycardia and tachypnea Bacteremia with E coli Pneumonia Interstitial lung disease with worsening respiratory status. Chronic hypoxic respiratory failure - on home O2 at 2L Functional decline Gait instability/Gen debility LE edema Right medial buttock pressure ulcer, Stage III - (POA) CAD HTN HDL GERD/esophageal stricture - S/P dilatation 11/07/17 Dysphagia - improved post esophageal stricture BPH Osteoporosis Severe Protein Calorie malnutrition Underweight with BMI 17.2 Hx compression fracture to back - chronic back pain Hx kidney stones Hx [place] filter placement in 2007 Plan Continue ceftriaxone and azithromycin for pulmonary coverage. Discontinue IV fluids. Monitor oral intake. Given lasix 20 mg IV x1. Presence of edema to all extremities. Weight up 6Kg from admission Repeat blood cultures drawn this morning Continue neb treatments of DuoNeb QID and q 4prn along with budesonide BID. Continue to follow daily labs DVT Prophylaxis: SCD's Resuscitation Status: Full Code - Time spent with patient Time with patient PN: 25 minutes - Physician Narrative Physician: Omar Arshad MD Narrative: Date: 01/28/18 Time: 1557 Have independently interviewed and examined pt. Chart reviewed. Case discussed with my SMELTER OPERATOR. Care plan developed with my supervision; agree with above. Doing okay. Breathing alright at rest, but winds readily with activities. Not having cough/congestion; no pain with breathing. Appetite fair. No ab pain or nausea. No stool since admission-pt reports it's not uncommon for him to go 3 days between bowel movements. Strength decreased-working with therapy, but very taxing. Lungs: decreased, scattered crackles. CV: regular AB: soft nt BS decreased MSE: awake alert appropriate Plan: Continue with Rocephin and azithromycin for pulm coverage-Rocephin covering E coli bacteremia. Continue steroids. Encourage work with therapy to help functional status. Add daily Miralax (holding with loose stool) to help with bowel function. Monitor lab. Hospital Course Summary Disclaimer: The visit summary below is not to be considered part of the above Progress Note. Hospital Course: 01/26/18 [place]patient admission [place] [facility] of sepsis syndrome secondary to pulmonary source. Initiate ceftriaxone and azithromycin for pulmonary coverage. Will utilize neb treatments of DuoNeb QID and q 4prn along with budesonide BID. Start Solu-Medrol 125mg IV q 6 hours to decrease pulmonary inflammation. Consult with Dr Ayala for pulmonary evaluation and recommendations. IVF given via EMS. Will give bolus of 500cc and then continue NS with 20 KCl at 100 cc/hr. Recheck Lactate. Speech consult secondary to dysphagia. Continue Protonix BID. PT/OT consult to help improve strength and functional abilities. SCD for DVT prevention. Check TSH secondary to fatigue and functional decline. Check Prealbumin due to underweight. May continue home medications. Discussed code status with patient and his daughter - does have some ambivalence. Will have status full code. Care to return to Dr Doll at time of discharge from [facility]. 01/27/18 Continue ceftriaxone and azithromycin for pulmonary coverage. With positive Blood cultures, will repeat. Continue neb treatments of DuoNeb QID and q 4prn along with budesonide BID. Decrease Solu-Medrol to 62.5mg IV q 6 hours. Decrease IVF to 50cc/hr as oral drive starting to increase. PT/OT/Speech initiated to help improve functional status. 01/28/18 Continue ceftriaxone and azithromycin for pulmonary coverage. BS positive with E coli -sensitive to ceftriaxone. Repeat blood cultures drawn this morning Discontinue IV fluids. Monitor oral intake. Nutritional supplements. Given lasix 20 mg IV x1. Presence of edema to all extremities. Weight up 6Kg from admission. Continue neb treatments of DuoNeb QID and q 4prn along with budesonide BID. Continue to follow daily labs.
[2018-01-28] MEDS: BUDESONIDE INH.SOLN 0.5mg/2ml NEB AEROSOL SCH ×2 (11:58→19:57)
[2018-01-28] MEDS: CEFTRIAXONE 1 G in D5W 100 ML IV SCH (15:09)
[2018-01-28] MEDS: AZITHROMYCIN IV 500 MG in NS 250ml 250 ML IV SCH (16:06)
[2018-01-28] MEDS: NS FLUSH BAG 500ml IV PRN (16:12)
[2018-01-28] MEDS: POLYETHYL GLYCOL 3350 17gm PACKET PO SCH (16:28)
[2018-01-28] MEDS: ATORVASTATIN 20 MG TABLET PO SCH (20:44)
[2018-01-28] MEDS: HYDROCODONE/APAP 7.5 MG/325 MG TABLET PO PRN (20:44)
[2018-01-28] MEDS: ASPIRIN *EC* 81 MG TABLET PO SCH (20:44)
[2018-01-28] MEDS: ATENOLOL 25 MG TABLET PO SCH (20:45)
[2018-01-28] MEDS: SALINE FLUSH 10ml SYRINGE IVF PRN (21:45)
[2018-01-29] MEDS: METHYLPREDNISOLONE SOD SUCC 125mg/2ml INJECTION IVP SCH ×4 (03:35→20:46)
[2018-01-29] MEDS: PANTOPRAZOLE 40 MG TABLET PO SCH ×2 (06:30→16:37)
[2018-01-29] MEDS: ALBUTEROL/IPRATROPIUM 2.5mg-0.5mg/3ml NEB AEROSOL SCH ×4 (07:24→19:27)
[2018-01-29] MEDS: BUDESONIDE INH.SOLN 0.5mg/2ml NEB AEROSOL SCH ×2 (07:27→19:27)
[2018-01-29] MEDS: GUAIFENESIN/D-METHORPHAN 600mg/30mg TABLET PO SCH ×2 (09:31→20:47)
[2018-01-29] MEDS: SALINE FLUSH 10ml SYRINGE IVF PRN ×2 (09:32→20:48)
[2018-01-29] MEDS: POLYETHYL GLYCOL 3350 17gm PACKET PO SCH (09:32)
--- NOTE | 2018-01-29 09:49 | Progress Note ---
- Date 01/29/18 Subjective: Evita is seen today in follow up with his daughter at his bedside. He states that overall he is feeling "pretty good". Does not have any complaints. Remains on home oxygen. Denies pain. Continues to have 3+ BLE edema on examination. Abraham cath intact. Objective Vital signs: Temperature 96.9 F 01/29/18 07:43 Pulse Rate 83 01/29/18 07:43 Respiratory Rate 20 01/29/18 07:43 Blood Pressure 117/61 01/29/18 07:43 Pulse Oximetry 99 01/29/18 07:43 Height/Weight/BMI: Height 1.8 m Weight 62.2 kg Body Mass Index 19.0 - Constitutional Present: no acute distress, well nourished, well developed - Routine HEENT Exam Eye: Present: EOMI ENT: Present: mucous membranes moist, dentition normal - Routine Respiratory Exam Present: diminished air movement. Absent: wheezes - Routine Cardiovascular Exam Present: RRR, S1, S2. Absent: murmur - Routine Abdominal Exam Present: soft, normoactive bowel sounds, non distended. Absent: tenderness - Routine Extremities Exam Present: edema (3+ BLE) - Routine Skin Exam Present: dry, warm - Routine Neurological Exam Present: alert, oriented X3, CN II-XII intact - Routine Lymphatic Exam Lymphatic: Absent: adenopathy - Routine Psychiatric Exam Present: normal affect, normal thought process, cooperative Results - Labs CBC & Chem 7: 01/29/18 04:33 01/29/18 04:33 Microbiology Results: Microbiology 01/28/18 04:51 Peripheral/Iv Start Blood Culture - Preliminary No Growth After 1 Day 01/28/18 04:57 Peripheral/Iv Start Blood Culture - Preliminary No Growth After 1 Day 01/26/18 15:08 Peripheral/Iv Start Gram Stain - Final 01/26/18 15:08 Peripheral/Iv Start Blood Culture - Final Escherichia coli 01/26/18 15:02 Peripheral/Iv Start Gram Stain - Final 01/26/18 15:02 Peripheral/Iv Start Blood Culture - Final Escherichia coli Assessment and Plan Assessment and Plan: Assessment Sepsis syndrome manifested by temp elevation to 102.5, tachycardia and tachypnea Bacteremia with E coli Pneumonia Interstitial lung disease with worsening respiratory status. Chronic hypoxic respiratory failure - on home O2 at 2L Functional decline Gait instability/Gen debility LE edema Right medial buttock pressure ulcer, Stage III - (POA) CAD HTN HDL GERD/esophageal stricture - S/P dilatation 11/07/17 Dysphagia - improved post esophageal stricture BPH Osteoporosis Severe Protein Calorie malnutrition Underweight with BMI 17.2 Hx compression fracture to back - chronic back pain Hx kidney stones Hx [place] filter placement in 2007 Plan Continue ceftriaxone 1 gm daily will cover E-Coli bacteremia- Recommendations Tx for 7-14 days Continue azithromycin day 4/5 for pulmonary coverage. Can Dc after tomorrow Asked nursing staff to place bri hose to BLE for compression Could consider scheduling diuretics Continue neb treatments of DuoNeb QID and q 4prn along with budesonide BID. On baseline oxygen DVT Prophylaxis: SCD's, BRI Hose Resuscitation Status: Full Code - Time spent with patient Time with patient PN: 25 minutes - Physician Narrative Physician: Omar Arshad MD Narrative: Date: 01/29/18 Time: 1606 Have independently interviewed and examined pt. Chart reviewed. Case discussed with my ORACLE ERP DEVELOPER. Care plan developed with my supervision; agree with above. Making gains. Breathing feeling easier-less SOA and congested. No pain with breathing. Appetite fair. Stools slow. Did work with therapy and walked some today. Lungs: decreased, slight increase in air movement. No distress with O2 CV: regular AB: soft nt/nd BS decreased MSE: awake alert appropriate Plan: Continue antibiotics, steroids, and breathing treatments. Will recheck CXR tomorrow. Lasix 20mg IV x1 to help motivate edema. Encourage activities. Work on bowel function-Miralax started yesterday, prn meds not been given. Monitor lab. Hospital Course Summary Disclaimer: The visit summary below is not to be considered part of the above Progress Note. Hospital Course: 01/26/[address] [facility] of sepsis syndrome secondary to pulmonary source. Initiate ceftriaxone and azithromycin for pulmonary coverage. Will utilize neb treatments of DuoNeb QID and q 4prn along with budesonide BID. Start Solu-Medrol 125mg IV q 6 hours to decrease pulmonary inflammation. Consult with Dr Ayala for pulmonary evaluation and recommendations. IVF given via EMS. Will give bolus of 500cc and then continue NS with 20 KCl at 100 cc/hr. Recheck Lactate. Speech consult secondary to dysphagia. Continue Protonix BID. PT/OT consult to help improve strength and functional abilities. SCD for DVT prevention. Check TSH secondary to fatigue and functional decline. Check Prealbumin due to underweight. May continue home medications. Discussed code status with patient and his daughter - does have some ambivalence. Will have status full code. Care to return to Dr Doll at time of discharge from [facility]. 01/27/18 Continue ceftriaxone and azithromycin for pulmonary coverage. With positive Blood cultures, will repeat. Continue neb treatments of DuoNeb QID and q 4prn along with budesonide BID. Decrease Solu-Medrol to 62.5mg IV q 6 hours. Decrease IVF to 50cc/hr as oral drive starting to increase. PT/OT/Speech initiated to help improve functional status. 01/28/18 Continue ceftriaxone and azithromycin for pulmonary coverage. BS positive with E coli -sensitive to ceftriaxone. Repeat blood cultures drawn this morning Discontinue IV fluids. Monitor oral intake. Nutritional supplements. Given lasix 20 mg IV x1. Presence of edema to all extremities. Weight up 6Kg from admission. Continue neb treatments of DuoNeb QID and q 4prn along with budesonide BID. Continue to follow daily labs. 01/29/18 Continue ceftriaxone 1 gm daily will cover E-Coli bacteremia- Recommendations Tx for 7-14 days Continue azithromycin day 4/5 for pulmonary coverage. Can Dc after tomorrow Asked nursing staff to place bri hose to BLE for compression Could consider scheduling diuretics Continue neb treatments of DuoNeb QID and q 4prn along with budesonide BID. On baseline oxygen
--- NOTE | 2018-01-29 12:50 | Pulmonology Progress Note ---
Subjective Principal diagnosis: pulmonary fibrosis Interval history: seems to be feeling better. no cough or sputum. no new fever on 1-2 lpm O2 Exam Vital signs: Temperature 96.9 F 01/29/18 07:43 Pulse Rate 83 01/29/18 07:43 Respiratory Rate 18 01/29/18 11:08 Blood Pressure 117/61 01/29/18 07:43 Pulse Oximetry 99 01/29/18 07:43 Inpatient Medications: Generic Name Dose Route Start Last Admin Trade Name Freq PRN Reason Stop Dose Admin Acetaminophen 650 mg 01/26/18 17:37 01/27/18 13:02 Tylenol PO 650 mg Q5H PRN Administration Discomfort Hydrocodone Bitart/Acetaminophen 1 tab 01/26/18 17:37 01/28/18 20:44 [place] 7.5/325 PO 1 tab Q4H PRN Administration Pain Albuterol/Ipratropium 3 ml 01/26/18 19:00 01/29/18 11:07 Duoneb AEROSOL 3 ml RTQID MANAN Administration Albuterol/Ipratropium 3 ml 01/26/18 17:37 Duoneb AEROSOL Q4HR PRN Shortness of air Aspirin 81 mg 01/26/18 21:00 01/28/18 20:44 Ecotrin PO 81 mg HS MANAN Administration Atenolol 25 mg 01/26/18 21:00 01/28/18 20:45 Tenormin PO 25 mg HS MANAN Administration Atorvastatin Calcium 20 mg 01/26/18 21:00 01/28/18 20:44 Lipitor PO 20 mg HS MANAN Administration Bisacodyl 10 mg 01/26/18 17:37 Dulcolax RECTALLY DAILY PRN Constipation Budesonide 0.5 mg 01/26/18 19:00 01/29/18 07:27 Pulmicort Inhalation AEROSOL 0.5 mg RTBID MANAN Administration Guaifenesin/Dextromethorphan 1 tab 01/26/18 21:00 01/29/18 09:31 Mucinex Dm PO 1 tab BID MANAN Administration Azithromycin 500 mg/ Sodium 250 mls @ 167 mls/hr 01/27/18 16:00 01/28/18 18: 07 Chloride IV Infused Q24H MANAN Infusion Ceftriaxone Sodium 1 g/ 100 mls @ 200 mls/hr 01/27/18 16:00 01/28/18 16:06 Dextrose IV Infused Q24H MANAN Infusion Magnesium Hydroxide 30 ml 01/26/18 17:37 Mom PO DAILY PRN Constipation Meloxicam 15 mg 01/26/18 17:37 01/26/18 20:54 Mobic PO 15 mg DAILY PRN Administration Pain Menthol 1 lozenge 01/26/18 17:37 Ricola Sf MM PRN PRN Cough Methylprednisolone Sodium Succinate 62.5 mg 01/27/18 15:00 01/29/18 09:32 Solu-Medrol IVP 62.5 mg Q6HR MANAN Administration Pantoprazole Sodium 40 mg 01/26/18 18:44 01/29/18 06:30 Protonix Tab PO 40 mg ACBID MANAN Administration Polyethylene Glycol 17 gm 01/28/18 16:00 01/29/18 09:32 Miralax PO 17 gm DAILY MANAN Administration Prochlorperazine Edisylate 10 mg 01/26/18 17:37 Compazine Iv IVP Q6H PRN Nausea &/or vomiting Sodium Chloride 10 - 80 ml 01/26/18 14:54 01/29/18 09:32 Iv Flush IVF 20 ml PRN PRN Administration [place] Sodium Chloride 500 ml 01/28/18 16:07 01/28/18 16:12 Normal Saline IV 500 ml PRN PRN Administration Discontinued Medications Generic Name Dose Route Start Last Admin Trade Name Freq PRN Reason Stop Dose Admin Acetaminophen 1,000 mg 01/26/18 15:45 01/26/18 15:54 Tylenol PO 1,000 mg O MANAN Administration Furosemide 20 mg 01/28/18 11:33 01/28/18 11:50 Lasix 20 Mg/2 Ml IVP 01/28/18 11:34 20 mg ONCE ONE Administration Ceftriaxone Sodium 1 gm/ 100 mls @ 200 mls/hr 01/26/18 15:50 01/26/18 16:30 Sodium Chloride IV 01/26/18 16:19 Infused O ONE Infusion Sodium Chloride 500 mls @ 999.9 mls/hr 01/26/18 16:04 Normal Saline IV 01/26/18 16:33 .Q30M ONE Azithromycin 500 mg/ Sodium 250 mls @ 167 mls/hr 01/26/18 16:21 01/26/18 18: 13 Chloride IV 01/26/18 17:50 Infused O ONE Infusion Potassium Chloride/Sodium Chloride 1,000 mls @ 100 mls/hr 01/26/18 17:37 05/07 10:48 Ns With Kcl 20 Meq Premix IV Infused .Q10H MANAN Infusion Sodium Chloride 500 mls @ 999.9 mls/hr 01/26/18 18:32 01/26/18 19:04 Normal Saline IV 01/26/18 19:01 Infused .Q30M ONE Infusion Sodium Chloride 1,000 mls @ 999.9 mls/hr 01/26/18 19:43 01/26/18 21:00 Normal Saline IV 01/26/18 20:42 Infused .Q1H ONE Infusion Potassium Chloride/Sodium Chloride 1,000 mls @ 50 mls/hr 01/27/18 10:18 01/28 11:50 1/2 Ns With Kcl 20meq Premix IV Infused .Q20H MANAN Infusion Methylprednisolone Sodium Succinate 125 mg 01/26/18 17:37 01/27/18 08:11 Solu-Medrol IVP 125 mg Q6HR MANAN Administration Pantoprazole Sodium 40 mg 01/27/18 06:30 Protonix Tab PO ACB [facility] Pharmacy Consult 1 each 01/26/18 17:57 Pharmacy Consult - Fall Risk [facility] 01/26/18 17:58 ONE TIME ONE Pneumococcal 7-Valent Conj Vacc 0.5 ml 01/27/18 13:15 01/27/18 13:28 Prevnar 13 IM 01/27/18 13:16 0.5 ml .ONCE ONE Administration - Constitutional no acute distress, thin, cooperative - Routine HEENT Exam Head: Present: normocephalic, atraumatic Eye: Absent: conjunctival icterus ENT: Present: mucous membranes moist - Routine Neck Exam Present: supple - Routine Respiratory Exam Present: crackles. Absent: accessory muscle use - Routine Cardiovascular Exam Present: RRR - Urinary Catheter Management Urethral Cath placed during this visit: yes Insertion date: 01/26/18 Results - Laboratory Findings Laboratory: Laboratory Results - last 48 hr 01/28/18 01/28/18 01/29/18 04:51 04:51 04:33 WBC 7.8 9.3 RBC 2.94 L 2.93 L Hgb 8.9 L 8.8 L Hct 29.0 L 28.8 L MCV 98.6 98.3 MCH 30.3 30.0 MCHC 30.7 L 30.6 L RDW Std Deviation 50.0 49.5 Plt Count 146 122 L MPV 10.1 10.4 Immature Gran % (Auto) Not performed Not performed Neut % (Auto) Not performed Not performed Lymph % (Auto) Not performed Not performed [place] % (Auto) Not performed Not performed Eos % (Auto) Not performed Not performed Baso % (Auto) Not performed Not performed Neut # (Auto) Not performed Not performed Lymph # (Auto) Not performed Not performed [place] # (Auto) Not performed Not performed Eos # (Auto) Not performed Not performed Baso # (Auto) Not performed Not performed Abs Immat Gran (auto) Not performed Not performed Neutrophils % (Manual) 98.0 H 98.0 H Band Neutrophils % 1.0 Lymphocytes % (Manual) 2.0 L 1.0 L Neutrophils # (Manual) 7.6 9.1 H Band Neutrophils # 0.1 Lymphocytes # (Manual) 0.2 L 0.1 L Poikilocytosis 3+ 3+ Anisocytosis 1+ Ovalocytes 1+ Helmet Cells 1+ 1+ [place] Cells 1+ Acanthocytes (Spur) 2+ 2+ Schistocytes 1+ 1+ RBC Morph Comment Abnormal Abnormal Turbidity < 20 Sodium 141 Potassium 4.2 Chloride 111 H Carbon Dioxide 25 Anion Gap 5 BUN 32.0 H Creatinine 0.8 D GFR Calculation 92 BUN/Creatinine Ratio 40 H Glucose 265 H Calculated Osmolality 287 H Calcium 6.2 L Icterus Index < 2 Specimen Hemolysis < 15 01/29/18 04:33 WBC RBC Hgb Hct MCV MCH MCHC RDW Std Deviation Plt Count MPV Immature Gran % (Auto) Neut % (Auto) Lymph % (Auto) [place] % (Auto) Eos % (Auto) Baso % (Auto) Neut # (Auto) Lymph # (Auto) [place] # (Auto) Eos # (Auto) Baso # (Auto) Abs Immat Gran (auto) Neutrophils % (Manual) Band Neutrophils % Lymphocytes % (Manual) Neutrophils # (Manual) Band Neutrophils # Lymphocytes # (Manual) Poikilocytosis Anisocytosis Ovalocytes Helmet Cells [place] Cells Acanthocytes (Spur) Schistocytes RBC Morph Comment Turbidity < 20 Sodium 140 Potassium 4.6 Chloride 111 H Carbon Dioxide 26 Anion Gap 3 L BUN 40.0 H Creatinine 0.8 GFR Calculation 92 BUN/Creatinine Ratio 50 H Glucose 201 H Calculated Osmolality 285 H Calcium 6.4 L Icterus Index < 2 Specimen Hemolysis < 15 - Diagnostic Findings Chest x-ray: report reviewed, image reviewed Assessment and Plan (1) Acute and chronic respiratory failure with hypoxia Status: Acute Assessment and plan: continue O2 by NC (currently 1-2 lpm at rest) to keep sat >90%. Exercise oximetry with O2 titration. I suspect he will need higher O2 flows with exertion. 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 He is currently being managed on Cellcept and Predisone. I agree with IV corticosteroids at this time and will hold Cellcept. It is unclear whether the Cellcept is adding a great deal to his care at this time and we will discuss the possibility of stopping Cellcept and monitoring closely. He is scheduled for a PFT this Friday and we will defer that for now. Seems to be improving and may be able to discharge soon with outpatient followup. Consider discontinuing Cellcept on discharge Current Visit: Yes (3) Pneumonia Status: Acute Assessment and plan: Agree with empiric antibiotic with Rocephin and Azithromycin. He seems to be responding to this regimen as his fever is resolved and can likely change to PO antibiotics upon discharge Current Visit: Yes - Time Spent With Patient Total time spent is greater than 50% in coordination of care (as documented) at patient's floor/unit and/or counseling patient: less than 15 minutes
[2018-01-29] MEDS: CEFTRIAXONE 1 G in D5W 100 ML IV SCH (15:25)
[2018-01-29] MEDS ORDERED: FUROSEMIDE 20 MG/2 ML INJECTION IVP ONE (16:05)
[2018-01-29] MEDS: BISACODYL 10 MG SUPPOSITORY RECTALLY PRN (16:37)
[2018-01-29] MEDS: AZITHROMYCIN IV 500 MG in NS 250ml 250 ML IV SCH (16:37)
[2018-01-29] MEDS: ATORVASTATIN 20 MG TABLET PO SCH (20:47)
[2018-01-29] MEDS: HYDROCODONE/APAP 7.5 MG/325 MG TABLET PO PRN (20:47)
[2018-01-29] MEDS: ATENOLOL 25 MG TABLET PO SCH (20:47)
[2018-01-29] MEDS: ASPIRIN *EC* 81 MG TABLET PO SCH (20:48)
[2018-01-30] MEDS: SALINE FLUSH 10ml SYRINGE IVF PRN ×4 (03:02→22:20)
[2018-01-30] MEDS: METHYLPREDNISOLONE SOD SUCC 125mg/2ml INJECTION IVP SCH ×4 (03:02→22:20)
[2018-01-30] MEDS: PANTOPRAZOLE 40 MG TABLET PO SCH ×2 (06:46→17:46)
[2018-01-30] MEDS: ALBUTEROL/IPRATROPIUM 2.5mg-0.5mg/3ml NEB AEROSOL SCH ×4 (06:50→18:35)
[2018-01-30] MEDS: BUDESONIDE INH.SOLN 0.5mg/2ml NEB AEROSOL SCH ×2 (06:50→18:35)
--- NOTE | 2018-01-30 08:40 | XRay Report ---
INDICATION: F/U PROCEDURE: CHEST 2-VIEWS UPRIGHT (PA & LAT) Encounter: Initial COMPARISON: January 26, 2018 FINDINGS: Severe pulmonary fibrotic changes are redemonstrated without visible change. No clear areas of new consolidation. No pleural effusion or pneumothorax. Heart size and mediastinal contours are stable. Pulmonary vascularity is obscured by the fibrosis. Multiple lower thoracic and upper lumbar compression fractures. Impression: Stable chest with severe pulmonary fibrosis. .
[2018-01-30] MEDS: GUAIFENESIN/D-METHORPHAN 600mg/30mg TABLET PO SCH ×2 (09:35→22:19)
[2018-01-30] MEDS: POLYETHYL GLYCOL 3350 17gm PACKET PO SCH (09:35)
[2018-01-30] MEDS ORDERED: FUROSEMIDE 40 MG/4 ML INJECTION IVP ONE (09:47)
--- NOTE | 2018-01-30 10:30 | Progress Note ---
- Date 01/30/18 Subjective: Mr Negron is seen today in follow up. He complains of having some back pain today which he states is chronic. He is down to 0.5 liters of oxygen and he is 100% at rest. Denies chest pain or shortness of breath. Appetite is fair, Abraham intact, small smear BM this morning. Objective Vital signs: Temperature 97.4 F 01/30/18 10:17 Pulse Rate 79 01/30/18 08:00 Respiratory Rate 16 01/30/18 08:00 Blood Pressure 124/68 01/30/18 08:00 Pulse Oximetry 100 01/30/18 08:00 Height/Weight/BMI: Height 1.8 m Weight 56.5 kg Body Mass Index 19.0 - Constitutional Present: no acute distress, well nourished, well developed - Routine HEENT Exam Eye: Present: EOMI ENT: Present: mucous membranes moist, dentition normal - Routine Respiratory Exam Present: crackles (posterior base). Absent: wheezes - Routine Cardiovascular Exam Present: RRR, S1, S2. Absent: murmur - Routine Abdominal Exam Present: soft, normoactive bowel sounds, non distended. Absent: tenderness - Routine Extremities Exam Present: edema (3+ BLE) - Routine Skin Exam Present: intact, dry, warm - Routine Neurological Exam Present: alert, oriented X3, CN II-XII intact, moving all extremities - Routine Lymphatic Exam Lymphatic: Absent: adenopathy - Routine Psychiatric Exam Present: normal affect, cooperative Results - Labs CBC & Chem 7: 01/30/18 04:31 01/30/18 04:31 Microbiology Results: Microbiology 01/28/18 04:57 Peripheral/Iv Start Blood Culture - Preliminary No Growth After 2 Days 01/28/18 04:51 Peripheral/Iv Start Blood Culture - Preliminary No Growth After 2 Days 01/26/18 15:08 Peripheral/Iv Start Gram Stain - Final 01/26/18 15:08 Peripheral/Iv Start Blood Culture - Final Escherichia coli 01/26/18 15:02 Peripheral/Iv Start Gram Stain - Final 01/26/18 15:02 Peripheral/Iv Start Blood Culture - Final Escherichia coli Assessment and Plan Assessment and Plan: Assessment Sepsis syndrome manifested by temp elevation to 102.5, tachycardia and tachypnea Bacteremia with E coli Pneumonia Interstitial lung disease with worsening respiratory status. Chronic hypoxic respiratory failure - on home O2 at 2L Functional decline Gait instability/Gen debility LE edema Right medial buttock pressure ulcer, Stage III - (POA) CAD HTN HDL GERD/esophageal stricture - S/P dilatation 11/07/17 Dysphagia - improved post esophageal stricture BPH Osteoporosis Severe Protein Calorie malnutrition Underweight with BMI 17.2 Hx compression fracture to back - chronic back pain Hx kidney stones Hx [place] filter placement in 2007 Plan Discontinue Azithromycin as course is complete Continue ceftriaxone 1 gm daily will cover E-Coli bacteremia- Will need tx --> continue with bri jenningse to BLE for compression Re-Consult PT/OT- would like to get patient up and move. O2 at baseline at rest. continues on scheduled Solu-Medrol Planning to SNU at [facility] once medically stable DVT Prophylaxis: SCD's Resuscitation Status: Full Code - Time spent with patient Time with patient PN: 25 minutes - Physician Narrative Physician: Omra Arshad MD Narrative: Date: 01/30/18 Time: 1021 Have independently interviewed and examined pt. Chart reviewed. Case discussed with my AUTO COLLISION REPAIR INSTRUCTOR. Care plan developed with my supervision; agree with above. Doing okay. Little appetite. Not feeling ab pain or nausea. Little stool output. Breathing about the same-okay at rest, winded with activities. No pain with breathing. Reports has not been up much. Strength decreased. Lungs: decreased, no distress CV: regular AB: soft nt BS decreased EXT: +2 BLE MSE: awake alert appropriate Plan: Will continue with ceftriaxone, can stop azithromycin as course completed. Continue with steroids - possible taper in near future. With sugars showing elevation from steroids will add ISS. PICC line for antibiotics. Lasix 40mg given this am to help decrease edema. Nursing to ambulate pt QID to help strength. Monitor lab. Hospital Course Summary Disclaimer: The visit summary below is not to be considered part of the above Progress Note. Hospital Course: 01/26/18 [place] [facility] [place] syndrome secondary to pulmonary source. Initiate ceftriaxone and azithromycin for pulmonary coverage. Will utilize neb treatments of DuoNeb QID and q 4prn along with budesonide BID. Start Solu-Medrol 125mg IV q 6 hours to decrease pulmonary inflammation. Consult with Dr Ayala for pulmonary evaluation and recommendations. IVF given via EMS. Will give bolus of 500cc and then continue NS with 20 KCl at 100 cc/hr. Recheck Lactate. Speech consult secondary to dysphagia. Continue Protonix BID. PT/OT consult to help improve strength and functional abilities. SCD for DVT prevention. Check TSH secondary to fatigue and functional decline. Check Prealbumin due to underweight. May continue home medications. Discussed code status with patient and his daughter - does have some ambivalence. Will have status full code. Care to return to Dr Doll at time of [place] [facility] 01/27/18 Continue ceftriaxone and azithromycin for pulmonary coverage. With positive Blood cultures, will repeat. Continue neb treatments of DuoNeb QID and q 4prn along with budesonide BID. Decrease Solu-Medrol to 62.5mg IV q 6 hours. Decrease IVF to 50cc/hr as oral drive starting to increase. PT/OT/Speech initiated to help improve functional status. 01/28/18 Continue ceftriaxone and azithromycin for pulmonary coverage. BS positive with E coli -sensitive to ceftriaxone. Repeat blood cultures drawn this morning. Discontinue IV fluids. Monitor oral intake. Nutritional supplements. Given lasix 20 mg IV x1. Presence of edema to all extremities. Weight up 6Kg from admission. Continue neb treatments of DuoNeb QID and q 4prn along with budesonide BID. 01/29/18 Continue ceftriaxone 1 gm daily will cover E-Coli bacteremia- Recommendations Tx for 7-14 days. Continue azithromycin day /5 for pulmonary coverage. Can D/C after tomorrow. Asked nursing staff to place BRI hose to BLE for compression. Could consider scheduling diuretics. Continue neb treatments of DuoNeb QID and q 4prn along with budesonide BID. On baseline oxygen. 01/30/18 Discontinue Azithromycin as course is complete. Continue ceftriaxone 1 gm daily will cover E-Coli bacteremia- Will need tx --> . Continue with SCD/BRI hose to BLE to decrease edema and decrease risk for DVT. Re-Consult PT/OT- would like to get patient up and move. Ambulate with nursing QID. O2 at baseline at rest. Continues on scheduled Solu-Medrol. Add ISS to help sugars. Planning to SNU at [facility] once medically stable.
[2018-01-30] MEDS: CEFTRIAXONE 1 G in D5W 100 ML IV SCH (16:43)
[2018-01-30] MEDS: NS FLUSH BAG 500ml IV PRN (16:44)
[2018-01-30] MEDS: ATENOLOL 25 MG TABLET PO SCH (22:19)
[2018-01-30] MEDS: INSULIN REGULAR, HUMAN 100 UNIT/ML INJECTION SQ PRN (22:19)
[2018-01-30] MEDS: ATORVASTATIN 20 MG TABLET PO SCH (22:19)
[2018-01-30] MEDS: ASPIRIN *EC* 81 MG TABLET PO SCH (22:19)
[2018-01-31] MEDS: METHYLPREDNISOLONE SOD SUCC 125mg/2ml INJECTION IVP SCH ×4 (04:36→21:28)
[2018-01-31] MEDS: SALINE FLUSH 10ml SYRINGE IVF PRN ×2 (04:37→18:29)
[2018-01-31] MEDS: PANTOPRAZOLE 40 MG TABLET PO SCH ×2 (05:43→16:42)
[2018-01-31] MEDS: BUDESONIDE INH.SOLN 0.5mg/2ml NEB AEROSOL SCH ×2 (07:07→20:57)
[2018-01-31] MEDS: ALBUTEROL/IPRATROPIUM 2.5mg-0.5mg/3ml NEB AEROSOL SCH ×4 (07:07→20:57)
[2018-01-31] MEDS: POLYETHYL GLYCOL 3350 17gm PACKET PO SCH (08:49)
[2018-01-31] MEDS: GUAIFENESIN/D-METHORPHAN 600mg/30mg TABLET PO SCH ×2 (08:49→21:28)
[2018-01-31] MEDS: HYDROCODONE/APAP 7.5 MG/325 MG TABLET PO PRN ×2 (09:58→22:28)
[2018-01-31] MEDS: INSULIN REGULAR, HUMAN 100 UNIT/ML INJECTION SQ PRN ×3 (11:32→23:04)
[2018-01-31] MEDS: ACETAMINOPHEN 325 MG TABLET PO PRN (11:33)
--- NOTE | 2018-01-31 11:49 | Progress Note ---
- Date 01/31/18 Subjective: Evita is seen today in follow up. He complains of having back pain which is chronic. He is chronically on 2 liters of oxygen however at rest is breathing comfortably on 1 liter. He denies feeling short of breath or having any chest pain. Denies abdominal discomfort or nausea. Since staff reported patient did not want breakfast this morning. However, just ordered broth. Objective Vital signs: Temperature 97.6 F 01/31/18 08:00 Pulse Rate 84 01/31/18 08:00 Respiratory Rate 16 01/31/18 10:58 Blood Pressure 129/71 01/31/18 08:00 Pulse Oximetry 96 01/31/18 10:58 Height/Weight/BMI: Height 1.8 m Weight 66.2 kg Body Mass Index 19.0 - Constitutional Present: no acute distress, well nourished, well developed - Routine HEENT Exam Eye: Present: EOMI ENT: Present: mucous membranes moist, dentition normal - Routine Respiratory Exam Present: diminished air movement. Absent: wheezes - Routine Cardiovascular Exam Present: RRR, S1, S2. Absent: murmur - Routine Abdominal Exam Present: soft, normoactive bowel sounds, non distended. Absent: tenderness - Routine Extremities Exam Present: edema (BLE) - Routine Skin Exam Present: intact, dry, warm - Routine Neurological Exam Present: alert, oriented X3, CN II-XII intact, moving all extremities - Routine Lymphatic Exam Lymphatic: Absent: adenopathy - Routine Psychiatric Exam Present: normal affect, cooperative Results - Labs CBC & Chem 7: 01/31/18 04:29 01/31/18 04:29 Microbiology Results: Microbiology 01/28/18 04:57 Peripheral/Iv Start Blood Culture - Preliminary No Growth After 3 Days 01/28/18 04:51 Peripheral/Iv Start Blood Culture - Preliminary No Growth After 3 Days 01/26/18 15:08 Peripheral/Iv Start Gram Stain - Final 01/26/18 15:08 Peripheral/Iv Start Blood Culture - Final Escherichia coli 01/26/18 15:02 Peripheral/Iv Start Gram Stain - Final 01/26/18 15:02 Peripheral/Iv Start Blood Culture - Final Escherichia coli Assessment and Plan Assessment and Plan: Assessment Sepsis syndrome manifested by temp elevation to 102.5, tachycardia and tachypnea Bacteremia with E coli Pneumonia Interstitial lung disease with worsening respiratory status. Chronic hypoxic respiratory failure - on home O2 at 2L Functional decline Gait instability/Gen debility LE edema Right medial buttock pressure ulcer, Stage III - (POA) CAD HTN HDL GERD/esophageal stricture - S/P dilatation 11/07/17 Dysphagia - improved post esophageal stricture BPH Osteoporosis Severe Protein Calorie malnutrition Underweight with BMI 17.2 Hx compression fracture to back - chronic back pain Hx kidney stones Hx [place] filter placement in 2007 Plan Continue ceftriaxone 1 gm daily will cover E-Coli bacteremia- Will need tx --> Decrease steroids to Prednisone 30 mg daily starting tomorrow. DC IV solu- medrol this evening Continue with bri hose to BLE for compression O2 at baseline at rest. Labs reviewed, Increase in K today. Will recheck tomorrow am. Planning to SNU at [facility] once medically stable 01/31/2018-6 PM-I examined the patient independently. I reviewed this chart, the patient history, and the MAPPING TECHNICIAN's/PA's documented findings as above. We discussed and formulated the assessment and plan as above with the additions below.-Dr. Kebede The patient was seen this evening in his room. He ate one quarter of an egg salad sandwich and stated that that was the most he eaten in a while. He stated he is currently too full to drink an ensure. He states they're just his room in his stomach. He denies any shortness of breath. He denies any nausea or vomiting. He denies any abdominal pain. On exam, weight is up 10 kg since admission. Chest is clear to auscultation. Cardiovascular reveals a regular rate and rhythm. Abdomen is soft and nontender. Extremities reveal 2-3+ pitting edema up into the medial thighs. Skin is warm and dry and without rashes. Impression Sepsis with bacteremia with Escherichia coli has resolved Pneumonia Interstitial lung disease on chronic 2 L of oxygen Severe malnutrition Hypoalbuminemia Lower extremity edema with 10 kg weight gain since admission Functional decline Anorexia Hyperkalemia Slowly worsening thrombocytopenia Chronic anemia Hypocalcemia Hypermagnesemia Plan Continue Rocephin regarding Escherichia coli bacteremia. Regarding lower extremity edema, hypoalbuminemia, and 10 kg weight gain-we'll give albumin 25 g now followed by Lasix 40 mg IV Encourage increased protein intake Re: Hyperkalemia-low potassium diet, will give Lasix and recheck levels tomorrow Check ionized calcium regarding hypocalcemia Hold milk of magnesia regarding hypermagnesemia I'm concerned that with the patient's poor nutritional status and poor appetite , he will have difficulty improving regarding strength and lower extremity edema. - Physician Narrative Narrative: Date: 01/31/18 Time: 1142 Hospital Course Summary Disclaimer: The visit summary below is not to be considered part of the above Progress Note. Hospital Course: 01/26/18 Inpatient admission to [facility] [place] for treatment of sepsis syndrome secondary to pulmonary source. Initiate ceftriaxone and azithromycin for pulmonary coverage. Will utilize neb treatments of DuoNeb QID and q 4prn along with budesonide BID. Start Solu-Medrol 125mg IV q 6 hours to decrease pulmonary inflammation. Consult with Dr Ayala for pulmonary evaluation and recommendations. IVF given via EMS. Will give bolus of 500cc and then continue NS with 20 KCl at 100 cc/hr. Recheck Lactate. Speech consult secondary to dysphagia. Continue Protonix BID. PT/OT consult to help improve strength and functional abilities. SCD for DVT prevention. Check TSH secondary to fatigue and functional decline. Check Prealbumin due to underweight. May continue home medications. Discussed code status with patient and his daughter - does have some ambivalence. Will have status full code. Care to return to Dr Doll at time of discharge from [facility] [place]. 01/27/18 Continue ceftriaxone and azithromycin for pulmonary coverage. With positive Blood cultures, will repeat. Continue neb treatments of DuoNeb QID and q 4prn along with budesonide BID. Decrease Solu-Medrol to 62.5mg IV q 6 hours. Decrease IVF to 50cc/hr as oral drive starting to increase. PT/OT/Speech initiated to help improve functional status. 01/28/18 Continue ceftriaxone and azithromycin for pulmonary coverage. BS positive with E coli -sensitive to ceftriaxone. Repeat blood cultures drawn this morning. Discontinue IV fluids. Monitor oral intake. Nutritional supplements. Given lasix 20 mg IV x1. Presence of edema to all extremities. Weight up 6Kg from admission. Continue neb treatments of DuoNeb QID and q 4prn along with budesonide BID. 01/29/18 Continue ceftriaxone 1 gm daily will cover E-Coli bacteremia- Recommendations Tx for 7-14 days. Continue azithromycin day 4/5 for pulmonary coverage. Can D/C after tomorrow. Asked nursing staff to place BRI hose to BLE for compression. Could consider scheduling diuretics. Continue neb treatments of DuoNeb QID and q 4prn along with budesonide BID. On baseline oxygen. 01/30/18 Discontinue Azithromycin as course is complete. Continue ceftriaxone 1 gm daily will cover E-Coli bacteremia- Will need tx --> . Continue with SCD/BRI hose to BLE to decrease edema and decrease risk for DVT. Re-Consult PT/OT- would like to get patient up and move. Ambulate with nursing QID. O2 at baseline at rest. Continues on scheduled Solu-Medrol. Add ISS to help sugars. Planning to SNU at [facility] once medically stable. 01/31/18 Continue ceftriaxone 1 gm daily will cover E-Coli bacteremia- Will need tx --> Decrease steroids to Prednisone 30 mg daily starting tomorrow. DC IV solu- medrol this evening Continue with bri hose to BLE for compression O2 at baseline at rest. Labs reviewed, Increase in K today. Will recheck tomorrow am.
[2018-01-31] MEDS: CEFTRIAXONE 1 G in D5W 100 ML IV SCH (16:41)
[2018-01-31] MEDS ORDERED: ALBUMIN HUMAN 25gm 25 G in CONTAINER,EMPTY 0 ML IV ONE (17:56)
[2018-01-31] MEDS ORDERED: FUROSEMIDE 40 MG/4 ML INJECTION IVP ONE (18:00)
[2018-01-31] MEDS: NS FLUSH BAG 500ml IV PRN (18:29)
[2018-01-31] MEDS: ATENOLOL 25 MG TABLET PO SCH (21:27)
[2018-01-31] MEDS: ASPIRIN *EC* 81 MG TABLET PO SCH (21:27)
[2018-01-31] MEDS: ATORVASTATIN 20 MG TABLET PO SCH (21:28)
[2018-02-01] MEDS: PANTOPRAZOLE 40 MG TABLET PO SCH ×2 (05:59→19:07)
[2018-02-01] MEDS: INSULIN REGULAR, HUMAN 100 UNIT/ML INJECTION SQ PRN ×3 (06:54→16:35)
[2018-02-01] MEDS ORDERED: ALBUMIN HUMAN 25gm 25 G in CONTAINER,EMPTY 0 ML IV ONE (07:30)
[2018-02-01] MEDS ORDERED: FUROSEMIDE 40 MG/4 ML INJECTION IVP ONE (07:30)
[2018-02-01] MEDS: BUDESONIDE INH.SOLN 0.5mg/2ml NEB AEROSOL SCH ×2 (08:31→20:09)
[2018-02-01] MEDS: ALBUTEROL/IPRATROPIUM 2.5mg-0.5mg/3ml NEB AEROSOL SCH ×4 (08:33→20:09)
[2018-02-01] MEDS: GUAIFENESIN/D-METHORPHAN 600mg/30mg TABLET PO SCH ×2 (09:37→22:07)
[2018-02-01] MEDS: PredniSONE 10 MG TABLET PO SCH (09:37)
[2018-02-01] MEDS: POLYETHYL GLYCOL 3350 17gm PACKET PO SCH (09:38)
[2018-02-01] MEDS ORDERED: ALBUMIN HUMAN 25 GM IV ONE (10:00)
[2018-02-01] MEDS: CALCIUM 600 + VIT D 400 TABLET PO SCH ×2 (10:47→22:06)
[2018-02-01] MEDS: HYDROCODONE/APAP 7.5 MG/325 MG TABLET PO PRN ×2 (12:44→16:28)
[2018-02-01] MEDS: LIDOCAINE 5% PATCH TOP SCH (14:11)
[2018-02-01] MEDS: CEFTRIAXONE 1 G in D5W 100 ML IV SCH (16:02)
--- NOTE | 2018-02-01 16:06 | Progress Note ---
- Date 02/01/18 Subjective: Evita was resting in bed, awake. He doesn't feel like he is getting any stronger , but has no specific complaints. He denies any shortness of breath, chest pain , abdominal pain or nausea. However, the respiratory therapist reports that he has a nonproductive cough. He still has swelling in his legs. Objective Vital signs: Temperature 96.9 F 02/01/18 08:00 Pulse Rate 82 02/01/18 08:00 Respiratory Rate 16 02/01/18 15:19 Blood Pressure 112/65 02/01/18 08:00 Pulse Oximetry 97 02/01/18 15:19 Height/Weight/BMI: Height 1.8 m Weight 66.2 kg Body Mass Index 19.0 - Constitutional Present: no acute distress, well nourished, well developed - Routine HEENT Exam Head: Present: normocephalic Eye: Present: PERRL. Absent: conjunctival icterus, scleral injection - Routine Respiratory Exam Present: CTA bilaterally, diminished air movement - Routine Cardiovascular Exam Present: RRR, S1, S2 - Routine Abdominal Exam Present: soft, normoactive bowel sounds, non distended, non tender - Routine Exam Comments: Abraham to DD - Routine Extremities Exam Present: edema (BLE, 3+) - Routine Skin Exam Present: intact, dry, pallor, warm - Routine Neurological Exam Present: alert, oriented X3, normal speech. Absent: facial asymmetry - Routine Psychiatric Exam Present: normal affect, normal thought process, cooperative Results - Labs CBC & Chem 7: 02/01/18 04:25 02/01/18 04:25 Microbiology Results: Microbiology 01/28/18 04:57 Peripheral/Iv Start Blood Culture - Preliminary No Growth After 4 Days 01/28/18 04:51 Peripheral/Iv Start Blood Culture - Preliminary No Growth After 4 Days 01/26/18 15:08 Peripheral/Iv Start Gram Stain - Final 01/26/18 15:08 Peripheral/Iv Start Blood Culture - Final Escherichia coli 01/26/18 15:02 Peripheral/Iv Start Gram Stain - Final 01/26/18 15:02 Peripheral/Iv Start Blood Culture - Final Escherichia coli Assessment and Plan Assessment and Plan: Assessment Sepsis syndrome manifested by temp elevation to 102.5, tachycardia and tachypnea - secondary to E. coli Bacteremia - resolved Bacteremia with E coli Pneumonia Interstitial lung disease with worsening respiratory status. Chronic hypoxic respiratory failure - on home O2 at 2L Severe malnutrition - Severe Protein Calorie malnutrition Hypoalbuminemia Functional decline Anorexia Hyperkalemia Gait instability/Gen debility LE edema - secondary to malnutrition Right medial buttock pressure ulcer, Stage III - (POA) Chronic anemia Hypocalcemia Hypermagnesemia CAD HTN HDL GERD/esophageal stricture - S/P dilatation 11/07/17 Dysphagia - improved post esophageal stricture BPH Osteoporosis Underweight with BMI 17.2 Hx compression fracture to back - chronic back pain Hx [place] filter placement in 2007 Plan Continue ceftriaxone 1 gm daily will cover E-Coli bacteremia through 02/11/18 K improved to 5.1. Calcium is low at 6.6 with an ionized calcium of only 1. Calcium was initiated. Question hypocalcemia contributing to his weakness. CO2 has been slightly trending up while gap is 4. ? association with electrolyte abnormalities versus IV diuresis. BGM have ranged 168-205. Thrombocytopenia improved to 100K today. Hgb down to 8.0 - iron studies pending. Continue Prednisone. Dietary consult ordered for tomorrow. Abraham was placed on 01/28/18. Anticipate PT/OT eval tomorrow. 02/01/2018-6 PM-I examined the patient independently. I reviewed this chart, the patient history, and the POLITICAL RESEARCHER's/PA's documented findings as above. We discussed and formulated the assessment and plan as above with the additions below.-Dr. Kebede Patient is seen this evening in his room. He has had a few bites of soup and states this is the first time he has been hungry. He had a breeze supplement earlier today. He denies any shortness of breath today. He denies abdominal pain or nausea. On exam he is alert and in no acute distress. He is sitting up in a chair. Chest reveals fine crackles more so in the bases. Cardiovascular reveals a regular rate and rhythm. Abdomen is soft and nontender. Extremities reveal 2+ pretibial and pedal edema, edema in the thighs is better. Skin reveals some mottling in the bilateral lower extremities. He is uncertain if this is chronic or not. Vital signs are stable. Echo in October 2017 showed ejection fraction of 50-55% and mild pulmonary hypertension Impression and plan The patient has had fair diuresis with albumin and Lasix. Recheck renal panel tomorrow. Hyperkalemia is better after Lasix yesterday. We'll check vitamin D regarding hypocalcemia. Calcium with vitamin D started twice a day. We'll check iron panel regarding anemia. Recheck CBC tomorrow. Discussed with Dr. Ayala, he stated lungs seem to be doing better at this point. PT and OT consult. Patient was urged to drink 3-4 supplement shakes per day. We'll check a KUB tomorrow to rule out constipation. DVT Prophylaxis: SAGAR [place] [facility] Prophylaxis: Protonix Resuscitation Status: Full Code - Physician Narrative Narrative: Date: 02/01/18 Time: 1601 Hospital Course Summary Disclaimer: The visit summary below is not to be considered part of the above Progress Note. Hospital Course: 01/26/18 [place] [facility] [place] syndrome secondary to pulmonary source. Initiate ceftriaxone and azithromycin for pulmonary coverage. Will utilize neb treatments of DuoNeb QID and q 4prn along with budesonide BID. Start Solu-Medrol 125mg IV q 6 hours to decrease pulmonary inflammation. Consult with Dr Ayala for pulmonary evaluation and recommendations. IVF given via EMS. Will give bolus of 500cc and then continue NS with 20 KCl at 100 cc/hr. Recheck Lactate. Speech consult secondary to dysphagia. Continue Protonix BID. PT/OT consult to help improve strength and functional abilities. SCD for DVT prevention. Check TSH secondary to fatigue and functional decline. Check Prealbumin due to underweight. May continue home medications. Discussed code status with patient and his daughter - does have some ambivalence. Will have status full code. Care to return to Dr Doll at time of discharge from [facility] 01/27/18 Continue ceftriaxone and azithromycin for pulmonary coverage. With positive Blood cultures, will repeat. Continue neb treatments of DuoNeb QID and q 4prn along with budesonide BID. Decrease Solu-Medrol to 62.5mg IV q 6 hours. Decrease IVF to 50cc/hr as oral drive starting to increase. PT/OT/Speech initiated to help improve functional status. 01/28/18 Continue ceftriaxone and azithromycin for pulmonary coverage. BS positive with E coli -sensitive to ceftriaxone. Repeat blood cultures drawn this morning. Discontinue IV fluids. Monitor oral intake. Nutritional supplements. Given lasix 20 mg IV x1. Presence of edema to all extremities. Weight up 6Kg from admission. Abraham was placed on 01/28/18. Continue neb treatments of DuoNeb QID and q 4prn along with budesonide BID. 01/29/18 Continue ceftriaxone 1 gm daily will cover E-Coli bacteremia- Recommendations Tx for 7-14 days. Continue azithromycin day 4/5 for pulmonary coverage. Can D/C after tomorrow. Asked nursing staff to place SAGAR hose to BLE for compression. Could consider scheduling diuretics. Continue neb treatments of DuoNeb QID and q 4prn along with budesonide BID. On baseline oxygen. 01/30/18 Discontinue Azithromycin as course is complete. Continue ceftriaxone 1 gm daily will cover E-Coli bacteremia- Will need tx --> . Continue with SCD/SAGAR hose to BLE to decrease edema and decrease risk for DVT. Re-Consult PT/OT- would like to get patient up and move. Ambulate with nursing QID. O2 at baseline at rest. Continues on scheduled Solu-Medrol. Add ISS to help sugars. Planning to SNU at [facility] once medically stable. 01/31/18 Continue ceftriaxone 1 gm daily will cover E-Coli bacteremia- Will need tx --> Decrease steroids to Prednisone 30 mg daily starting tomorrow. DC IV solu- medrol this evening Continue with sagar hose to BLE for compression O2 at baseline at rest. Labs reviewed, Increase in K today. Will recheck tomorrow am. 02/01/18 Continue ceftriaxone 1 gm daily will cover E-Coli bacteremia through 02/11/18 K improved to 5.1. Calcium is low at 6.6 with an ionized calcium of only 1. Calcium was initiated. Question hypocalcemia contributing to his weakness. CO2 has been slightly trending up while gap is 4. ? association with electrolyte abnormalities versus IV diuresis. BGM have ranged 168-205. Thrombocytopenia improved to 100K today. Hgb down to 8.0 - iron studies pending. Continue Prednisone. Dietary consult ordered for tomorrow. Anticipate PT/OT eval tomorrow.
--- NOTE | 2018-02-01 18:03 | Pulmonology Progress Note ---
Subjective Principal diagnosis: pulmonary fibrosis Interval history: up to chair. on 1 liter O2 by nc. states he is eating well. no new complaints Exam Vital signs: Temperature 96.6 F L 02/01/18 16:00 Pulse Rate 86 02/01/18 16:00 Respiratory Rate 16 02/01/18 17:28 Blood Pressure 110/60 02/01/18 16:00 Pulse Oximetry 96 02/01/18 16:00 Inpatient Medications: Generic Name Dose Route Start Last Admin Trade Name Freq PRN Reason Stop Dose Admin Acetaminophen 650 mg 01/26/18 17:37 01/31/18 11:33 Tylenol PO 650 mg Q5H PRN Administration Discomfort Hydrocodone Bitart/Acetaminophen 1 tab 01/26/18 17:37 02/01/18 16:28 Byron 7.5/325 PO 1 tab Q4H PRN Administration Pain Albuterol/Ipratropium 3 ml 01/26/18 19:00 02/01/18 15:19 Duoneb AEROSOL 3 ml RTQID MANAN Administration Albuterol/Ipratropium 3 ml 01/26/18 17:37 Duoneb AEROSOL Q4HR PRN Shortness of air Aspirin 81 mg 01/26/18 21:00 01/31/18 21:27 Ecotrin PO 81 mg HS MANAN Administration Atenolol 25 mg 01/26/18 21:00 01/31/18 21:27 Tenormin PO 25 mg HS MANAN Administration Atorvastatin Calcium 20 mg 01/26/18 21:00 01/31/18 21:28 Lipitor PO 20 mg HS MANAN Administration Bisacodyl 10 mg 01/26/18 17:37 01/29/18 16:37 Dulcolax RECTALLY 10 mg DAILY PRN Administration Constipation Budesonide 0.5 mg 01/26/18 19:00 02/01/18 08:31 Pulmicort Inhalation AEROSOL 0.5 mg RTBID MANAN Administration Calcium/Vitamin D 1 tab 02/01/18 09:00 02/01/18 10:47 Caltrate + D PO 1 tab BID MANAN Administration Guaifenesin/Dextromethorphan 1 tab 01/26/18 21:00 02/01/18 09:37 Mucinex Dm PO 1 tab BID MANAN Administration Ceftriaxone Sodium 1 g/ 100 mls @ 200 mls/hr 01/27/18 16:00 02/01/18 16:32 Dextrose IV Infused Q24H MANAN Infusion Insulin Human Regular 2 - 8 unit 01/30/18 14:01 02/01/18 16:35 Novolin R SQ 2 unit SS PRN Administration Hyperglycemia Protocol Lidocaine 1 patch 02/01/18 14:00 02/01/18 14:11 Lidoderm TOP 1 patch DAILY MANAN Administration Lidocaine HCl/Dextrose 1 removal 02/01/18 21:00 Lidoderm Patch Removal TOP 2100 MANAN Meloxicam 15 mg 01/26/18 17:37 01/26/18 20:54 Mobic PO 15 mg DAILY PRN Administration Pain Menthol 1 lozenge 01/26/18 17:37 Ricola Sf MM PRN PRN Cough Pantoprazole Sodium 40 mg 01/26/18 18:44 02/01/18 05:59 Protonix Tab PO 40 mg ACBID MANAN Administration Polyethylene Glycol 17 gm 01/28/18 16:00 02/01/18 09:38 Miralax PO 17 gm DAILY MANAN Administration Prednisone 30 mg 02/01/18 08:00 02/01/18 09:37 Deltasone 10 Mg PO 30 mg WB MANAN Administration Prochlorperazine Edisylate 10 mg 01/26/18 17:37 Compazine Iv IVP Q6H PRN Nausea &/or vomiting Sodium Chloride 10 - 80 ml 01/26/18 14:54 01/31/18 18:29 Iv Flush IVF 50 ml PRN PRN Administration Flushing Sodium Chloride 500 ml 01/28/18 16:07 01/31/18 18:29 Normal Saline IV 500 ml PRN PRN Administration Discontinued Medications Generic Name Dose Route Start Last Admin Trade Name Wyattq PRN Reason Stop Dose Admin Acetaminophen 1,000 mg 01/26/18 15:45 01/26/18 15:54 Tylenol PO 1,000 mg O MANAN Administration Furosemide 20 mg 01/28/18 11:33 01/28/18 11:50 Lasix 20 Mg/2 Ml IVP 01/28/18 11:34 20 mg ONCE ONE Administration Furosemide 20 mg 01/29/18 16:05 01/29/18 16:37 Lasix 20 Mg/2 Ml IVP 01/29/18 16:06 20 mg ONCE ONE Administration Furosemide 40 mg 01/30/18 09:47 01/30/18 10:40 Lasix 40 Mg/4 Ml IVP 01/30/18 09:48 40 mg O ONE Administration Furosemide 40 mg 01/31/18 18:00 01/31/18 21:27 Lasix 40 Mg/4 Ml IVP 01/31/18 18:01 40 mg O ONE Administration Furosemide 40 mg 02/01/18 07:30 02/01/18 13:57 Lasix 40 Mg/4 Ml IVP 02/01/18 07:31 40 mg O ONE Administration Ceftriaxone Sodium 1 gm/ 100 mls @ 200 mls/hr 01/26/18 15:50 01/26/18 16:30 Sodium Chloride IV 01/26/18 16:19 Infused O ONE Infusion Sodium Chloride 500 mls @ 999.9 mls/hr 01/26/18 16:04 Normal Saline IV 01/26/18 16:33 .Q30M ONE Azithromycin 500 mg/ Sodium 250 mls @ 167 mls/hr 01/26/18 16:21 01/26/18 18: 13 Chloride IV 01/26/18 17:50 Infused O ONE Infusion Azithromycin 500 mg/ Sodium 250 mls @ 167 mls/hr 01/27/18 16:00 01/29/18 18: 15 Chloride IV Infused Q24H MANAN Infusion Potassium Chloride/Sodium Chloride 1,000 mls @ 100 mls/hr 01/26/18 17:37 05/07 10:48 Ns With Kcl 20 Meq Premix IV Infused .Q10H MANAN Infusion Sodium Chloride 500 mls @ 999.9 mls/hr 01/26/18 18:32 01/26/18 19:04 Normal Saline IV 01/26/18 19:01 Infused .Q30M ONE Infusion Sodium Chloride 1,000 mls @ 999.9 mls/hr 01/26/18 19:43 01/26/18 21:00 Normal Saline IV 01/26/18 20:42 Infused .Q1H ONE Infusion Potassium Chloride/Sodium Chloride 1,000 mls @ 50 mls/hr 01/27/18 10:18 01/28 11:50 1/2 Ns With Kcl 20meq Premix IV Infused .Q20H MANAN Infusion Albumin Human 25 g/ IV 100 mls @ 50 mls/hr 01/31/18 17:56 01/31/18 20:30 Solution IV 01/31/18 19:55 Infused O ONE Infusion Albumin Human 100 mls @ 50 mls/hr 02/01/18 10:00 02/01/18 13:23 Albumin Human 25gm IV 02/01/18 11:59 Infused O ONE Infusion Magnesium Hydroxide 30 ml 01/26/18 17:37 01/29/18 17:53 Mom PO 30 ml DAILY PRN Administration Constipation Methylprednisolone Sodium Succinate 125 mg 01/26/18 17:37 01/27/18 08:11 Solu-Medrol IVP 125 mg Q6HR MANAN Administration Methylprednisolone Sodium Succinate 62.5 mg 01/27/18 15:00 01/31/18 21:28 Solu-Medrol IVP 01/31/18 21:00 62.5 mg Q6HR MANAN Administration Pantoprazole Sodium 40 mg 01/27/18 06:30 Protonix Tab PO ACB MANAN Pharmacy Consult 1 each 01/26/18 17:57 Pharmacy Consult - Fall Risk [facility] 01/26/18 17:58 ONE TIME ONE Pneumococcal 7-Valent Conj Vacc 0.5 ml 01/27/18 13:15 01/27/18 13:28 Prevnar 13 IM 01/27/18 13:16 0.5 ml .ONCE ONE Administration - Constitutional no acute distress, cachectic - Routine Neck Exam Present: supple, JVD - Routine Respiratory Exam Present: crackles. Absent: accessory muscle use - Routine Cardiovascular Exam Present: RRR - Routine Extremities Exam Present: edema - Urinary Catheter Management Urethral Cath placed during this visit: yes Insertion date: 01/26/18 Results - Laboratory Findings Laboratory: Laboratory Results - last 48 hr 01/30/18 01/31/18 01/31/18 20:17 04:29 04:29 WBC 7.6 RBC 2.88 L Hgb 8.7 L Hct 28.3 L MCV 98.3 MCH 30.2 MCHC 30.7 L RDW Std Deviation 49.5 Plt Count 96 L MPV 10.7 Immature Gran % (Auto) Not performed Neut % (Auto) Not performed Lymph % (Auto) Not performed [place] % (Auto) Not performed Eos % (Auto) Not performed Baso % (Auto) Not performed Neut # (Auto) Not performed Lymph # (Auto) Not performed [place] # (Auto) Not performed Eos # (Auto) Not performed Baso # (Auto) Not performed Abs Immat Gran (auto) Not performed Neutrophils % (Manual) 94.0 H Band Neutrophils % 1.0 Lymphocytes % (Manual) 2.0 L Monocytes % (Manual) 3.0 Neutrophils # (Manual) 7.1 Band Neutrophils # 0.1 Lymphocytes # (Manual) 0.2 L Monocytes # (Manual) 0.2 Poikilocytosis 3+ Anisocytosis 1+ Tear Drop Cells 1+ Ovalocytes 1+ Helmet Cells 1+ [place] Cells 1+ Crenated Cell Acanthocytes (Spur) 2+ Schistocytes 2+ RBC Morph Comment Abnormal Turbidity < 20 Sodium 138 Potassium 5.4 H Chloride 109 H Carbon Dioxide 27 Anion Gap 2 L BUN 41.0 H Creatinine 0.7 L GFR Calculation 107 BUN/Creatinine Ratio 59 H Glucose 140 H Glucometer 202 Calculated Osmolality 278 Calcium 6.5 L Ionized Calcium Jose Magnesium 2.6 H Total Bilirubin 0.30 Icterus Index < 2 AST 20 ALT 14 Alkaline Phosphatase 73 Total Protein 4.1 L Albumin 1.9 L Globulin 2.2 L Albumin/Globulin Ratio 0.9 L Specimen Hemolysis < 15 01/31/18 01/31/18 01/31/18 06:25 11:21 16:50 WBC RBC Hgb Hct MCV MCH MCHC RDW Std Deviation Plt Count MPV Immature Gran % (Auto) Neut % (Auto) Lymph % (Auto) [place] % (Auto) Eos % (Auto) Baso % (Auto) Neut # (Auto) Lymph # (Auto) [place] # (Auto) Eos # (Auto) Baso # (Auto) Abs Immat Gran (auto) Neutrophils % (Manual) Band Neutrophils % Lymphocytes % (Manual) Monocytes % (Manual) Neutrophils # (Manual) Band Neutrophils # Lymphocytes # (Manual) Monocytes # (Manual) Poikilocytosis Anisocytosis Tear Drop Cells Ovalocytes Helmet Cells [place] Cells Crenated Cell Acanthocytes (Spur) Schistocytes RBC Morph Comment Turbidity Sodium Potassium Chloride Carbon Dioxide Anion Gap BUN Creatinine GFR Calculation BUN/Creatinine Ratio Glucose Glucometer 191 188 199 Calculated Osmolality Calcium Ionized Calcium Jose Magnesium Total Bilirubin Icterus Index AST ALT Alkaline Phosphatase Total Protein Albumin Globulin Albumin/Globulin Ratio Specimen Hemolysis 01/31/18 02/01/18 02/01/18 21:07 04:25 04:25 WBC 7.6 RBC 2.67 L Hgb 8.0 L Hct 26.4 L MCV 98.9 MCH 30.0 MCHC 30.3 L RDW Std Deviation 48.3 Plt Count 100 L MPV 10.6 Immature Gran % (Auto) Not performed Neut % (Auto) Not performed Lymph % (Auto) Not performed [place] % (Auto) Not performed Eos % (Auto) Not performed Baso % (Auto) Not performed Neut # (Auto) Not performed Lymph # (Auto) Not performed [place] # (Auto) Not performed Eos # (Auto) Not performed Baso # (Auto) Not performed Abs Immat Gran (auto) Not performed Neutrophils % (Manual) 99.0 H Band Neutrophils % Lymphocytes % (Manual) 1.0 L Monocytes % (Manual) Neutrophils # (Manual) 7.5 Band Neutrophils # Lymphocytes # (Manual) 0.1 L Monocytes # (Manual) Poikilocytosis 3+ Anisocytosis 1+ Tear Drop Cells Ovalocytes 1+ Helmet Cells [place] Cells 3+ Crenated Cell 1+ Acanthocytes (Spur) 3+ Schistocytes RBC Morph Comment Abnorm Turbidity < 20 Sodium 140 Potassium 5.1 H Chloride 107 Carbon Dioxide 29 Anion Gap 4 L BUN 37.0 H Creatinine 0.6 L GFR Calculation 128 BUN/Creatinine Ratio 62 H Glucose 144 H Glucometer 205 Calculated Osmolality 281 H Calcium 6.6 L Ionized Calcium Jose 1.02 L Magnesium Total Bilirubin Icterus Index < 2 AST ALT Alkaline Phosphatase Total Protein Albumin Globulin Albumin/Globulin Ratio Specimen Hemolysis < 15 02/01/18 02/01/18 02/01/18 06:32 11:04 14:40 WBC RBC Hgb Hct MCV MCH MCHC RDW Std Deviation Plt Count MPV Immature Gran % (Auto) Neut % (Auto) Lymph % (Auto) [place] % (Auto) Eos % (Auto) Baso % (Auto) Neut # (Auto) Lymph # (Auto) [place] # (Auto) Eos # (Auto) Baso # (Auto) Abs Immat Gran (auto) Neutrophils % (Manual) Band Neutrophils % Lymphocytes % (Manual) Monocytes % (Manual) Neutrophils # (Manual) Band Neutrophils # Lymphocytes # (Manual) Monocytes # (Manual) Poikilocytosis Anisocytosis Tear Drop Cells Ovalocytes Helmet Cells [place] Cells Crenated Cell Acanthocytes (Spur) Schistocytes RBC Morph Comment Turbidity Sodium Potassium Chloride Carbon Dioxide Anion Gap BUN Creatinine GFR Calculation BUN/Creatinine Ratio Glucose Glucometer 168 202 168 Calculated Osmolality Calcium Ionized Calcium Jose Magnesium Total Bilirubin Icterus Index AST ALT Alkaline Phosphatase Total Protein Albumin Globulin Albumin/Globulin Ratio Specimen Hemolysis 02/01/18 16:31 WBC RBC Hgb Hct MCV MCH MCHC RDW Std Deviation Plt Count MPV Immature Gran % (Auto) Neut % (Auto) Lymph % (Auto) [place] % (Auto) Eos % (Auto) Baso % (Auto) Neut # (Auto) Lymph # (Auto) [place] # (Auto) Eos # (Auto) Baso # (Auto) Abs Immat Gran (auto) Neutrophils % (Manual) Band Neutrophils % Lymphocytes % (Manual) Monocytes % (Manual) Neutrophils # (Manual) Band Neutrophils # Lymphocytes # (Manual) Monocytes # (Manual) Poikilocytosis Anisocytosis Tear Drop Cells Ovalocytes Helmet Cells [place] Cells Crenated Cell Acanthocytes (Spur) Schistocytes RBC Morph Comment Turbidity Sodium Potassium Chloride Carbon Dioxide Anion Gap BUN Creatinine GFR Calculation BUN/Creatinine Ratio Glucose Glucometer 158 Calculated Osmolality Calcium Ionized Calcium Jose Magnesium Total Bilirubin Icterus Index AST ALT Alkaline Phosphatase Total Protein Albumin Globulin Albumin/Globulin Ratio Specimen Hemolysis - Diagnostic Findings Chest x-ray: report reviewed, image reviewed Assessment and Plan (1) Acute and chronic respiratory failure with hypoxia Status: Acute Assessment and plan: continue O2 by NC (currently 1-2 lpm at rest) to keep sat >90%. Exercise oximetry with O2 titration. I suspect he will need higher O2 flows with exertion. 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 He is currently being managed on Cellcept and Predisone. I agree with PO prednisone 30 mg daily at this time and will hold Cellcept. It is unclear whether the Cellcept is adding a great deal to his care at this time and we will discuss the possibility of stopping Cellcept and monitoring closely. Seems to be improving and may be able to discharge soon with outpatient followup. Consider discontinuing Cellcept on discharge Current Visit: Yes (3) Pneumonia Status: Acute Assessment and plan: Agree with empiric antibiotic with Rocephin and Azithromycin. He seems to be responding to this regimen as his fever is resolved and can likely change to PO antibiotics upon discharge Current Visit: Yes - Time Spent With Patient Total time spent is greater than 50% in coordination of care (as documented) at patient's floor/unit and/or counseling patient: less than 15 minutes
[2018-02-01] MEDS: ATORVASTATIN 20 MG TABLET PO SCH (22:06)
[2018-02-01] MEDS: ASPIRIN *EC* 81 MG TABLET PO SCH (22:06)
[2018-02-01] MEDS: ATENOLOL 25 MG TABLET PO SCH (22:06)
[2018-02-01] MEDS: LIDOCAINE REMOVAL TOP SCH (22:07)
[2018-02-02] MEDS: PANTOPRAZOLE 40 MG TABLET PO SCH ×2 (06:13→16:48)
[2018-02-02] MEDS: INSULIN REGULAR, HUMAN 100 UNIT/ML INJECTION SQ PRN ×2 (06:44→21:59)
[2018-02-02] MEDS: BUDESONIDE INH.SOLN 0.5mg/2ml NEB AEROSOL SCH ×2 (07:40→20:41)
[2018-02-02] MEDS: ALBUTEROL/IPRATROPIUM 2.5mg-0.5mg/3ml NEB AEROSOL SCH ×4 (07:40→20:41)
--- NOTE | 2018-02-02 08:16 | XRay Report ---
Indication: poor appetite, possible constipation XR KUB: Comparison: CT abdomen pelvis 12/24/2017 Technique: Supine film the abdomen Findings: Patient shows nonspecific gas pattern. There is moderate gas and stool in the bowel without localized point of obstruction. Previous spine stabilization noted. Patient also demonstrates a vena cava filter in place. Incidentally noted are extensive interstitial lung disease changes. Impression: Moderate gas and stool in the bowel without localized point of obstruction or marked distention. .
[2018-02-02] MEDS: PredniSONE 10 MG TABLET PO SCH (08:37)
[2018-02-02] MEDS: GUAIFENESIN/D-METHORPHAN 600mg/30mg TABLET PO SCH ×2 (08:37→21:45)
[2018-02-02] MEDS: CALCIUM 600 + VIT D 400 TABLET PO SCH ×2 (08:37→21:45)
[2018-02-02] MEDS: POLYETHYL GLYCOL 3350 17gm PACKET PO SCH (08:37)
[2018-02-02] MEDS: LIDOCAINE 5% PATCH TOP SCH (08:38)
[2018-02-02 10:53] VITALS: BMI 19.7
--- NOTE | 2018-02-02 13:12 | Wound Care Progress Note ---
Wound Management - Patient Status Premedicated Prior to Dressing Change: No - Wound Left Buttock Wound Type: Pressure Injury Wound Present on Admission?: Yes Wound Staging: Stage III Length: 1 Width: 1 Depth: 0.1 Wound Bed Appearance: [place] Wound Appearance: [place] Tunneling: No Undermining: No Drainage Description: Sanguineous Drainage Amount: Small Drainage Odor: No Odor Dressing Status: Changed Primary Dressing: Silver Dressing Secondary Dressing: Foam Dressing Dressing Change Date: 02/02/18 Dressing Change Time: 13:10 Dressing Change Patient Tolerance: Tolerated Well Microbiology: Microbiology 01/28/18 04:57 Peripheral/Iv Start Blood Culture - Final No Growth After 5 Days 01/28/18 04:51 Peripheral/Iv Start Blood Culture - Final No Growth After 5 Days Left Medial Buttock Wound Type: Pressure Injury Wound Present on Admission?: No Wound Staging: Stage II Length: 0.5 Width: 0.5 Depth: 0.1 Wound Bed Appearance: Pale Eva Wound Appearance: [place] Tunneling: No Undermining: No Drainage Description: Sanguineous Drainage Amount: Scant Drainage Odor: No Odor Dressing Status: Changed Primary Dressing: Silver Dressing Secondary Dressing: Foam Dressing Dressing Change Date: 02/02/18 Dressing Change Time: 13:11 Dressing Change Patient Tolerance: Tolerated Well Microbiology: Microbiology 01/28/18 04:57 Peripheral/Iv Start Blood Culture - Final No Growth After 5 Days 01/28/18 04:51 Peripheral/Iv Start Blood Culture - Final No Growth After 5 Days Medial Back Wound Type: Pressure Injury Wound Present on Admission?: No Wound Staging: Stage II Length: 1 Width: 1 Depth: 0.1 Wound Bed Appearance: [place] Wound Appearance: [place] Tunneling: No Undermining: No Drainage Description: Sanguineous Drainage Amount: Scant Drainage Odor: No Odor Dressing Status: Changed Primary Dressing: Silver Dressing Secondary Dressing: Foam Dressing Dressing Change Date: 02/02/18 Dressing Change Time: 13:13 Dressing Change Patient Tolerance: Tolerated Well Microbiology: Microbiology 01/28/18 04:57 Peripheral/Iv Start Blood Culture - Final No Growth After 5 Days 01/28/18 04:51 Peripheral/Iv Start Blood Culture - Final No Growth After 5 Days
--- NOTE | 2018-02-02 14:51 | Progress Note ---
- Date 02/02/18 Subjective: Mr. Negron was being seen by OT. He reports lower back pain, which has flared up today but he reports is chronic. He was sitting in the chair x1 hour and went for a short walk. He denied feeling SOA or dizzy but did feel weak. The OT reports that his breathing is a limiting factor with activity. Evita denies chest pain or cough. He denies abdominal pain or nausea. He states that he ate fairly well for breakfast but didn't feel like eating lunch. Objective Vital signs: Temperature 96.5 F L 02/02/18 07:38 Pulse Rate 83 02/02/18 07:38 Respiratory Rate 16 02/02/18 11:40 Blood Pressure 134/73 02/02/18 07:38 Pulse Oximetry 99 02/02/18 11:40 Height/Weight/BMI: Height 1.8 m Weight 64.2 kg Body Mass Index 19.7 - Constitutional Present: no acute distress, well nourished, well developed - Routine HEENT Exam Head: Present: normocephalic Eye: Present: PERRL. Absent: conjunctival icterus, scleral injection ENT: Present: mucous membranes moist - Routine Respiratory Exam Present: CTA bilaterally - Routine Cardiovascular Exam Present: RRR, S1, S2 - Routine Abdominal Exam Present: soft, normoactive bowel sounds, non distended, non tender - Routine Exam Comments: Abraham - Routine Extremities Exam Present: edema (3+ BLE) - Routine Skin Exam Present: intact, dry, pallor, mottling (B/L legs, most pronounced over kness), warm - Routine Neurological Exam Present: alert, oriented X3, normal speech. Absent: facial asymmetry - Routine Psychiatric Exam Present: normal affect, normal thought process, cooperative Results - Labs CBC & Chem 7: 02/02/18 04:00 02/02/18 04:00 Microbiology Results: Microbiology 01/28/18 04:57 Peripheral/Iv Start Blood Culture - Final No Growth After 5 Days 01/28/18 04:51 Peripheral/Iv Start Blood Culture - Final No Growth After 5 Days 01/26/18 15:08 Peripheral/Iv Start Gram Stain - Final 01/26/18 15:08 Peripheral/Iv Start Blood Culture - Final Escherichia coli 01/26/18 15:02 Peripheral/Iv Start Gram Stain - Final 07/09/18 15:02 Peripheral/Iv Start Blood Culture - Final Escherichia coli Assessment and Plan Assessment and Plan: Assessment Sepsis syndrome manifested by temp elevation to 102.5, tachycardia and tachypnea - secondary to E. coli Bacteremia - resolved Bacteremia with E coli Pneumonia Interstitial lung disease with worsening respiratory status. Chronic hypoxic respiratory failure - on home O2 at 2L Severe malnutrition - Severe Protein Calorie malnutrition Hypoalbuminemia Functional decline Anorexia Hyperkalemia Gait instability/Gen debility LE edema - secondary to malnutrition Right medial buttock pressure ulcer, Stage III - (POA) Chronic anemia Vitamin D Deficiency Hypocalcemia Hypermagnesemia Hypophosphatemia CAD HTN HDL GERD/esophageal stricture - S/P dilatation 11/07/17 Dysphagia - improved post esophageal stricture BPH Osteoporosis Underweight with BMI 17.2 Hx compression fracture to back - chronic back pain Hx [place] filter placement in 2007 Plan Continue ceftriaxone 1 gm daily will cover E-Coli bacteremia through 02/11/18. WBC up to 11.4. Afebrile. Hgb 8.0, iron 38, TIBC 155 -- IV iron ordered. Platelets up to 109. K 5.1. Phos 2.2. Vit D level was markedly low <12.5 -- start ergocalciferol 50, 000 U per week x 8 weeks (Per UpToDate, with prolonged, severe vit D deficiency , there is reduced absorption of calcium and phosphorous --> hypocalcemia and secondary hyperparathyroidism --> phosphaturia bone demineralization) KUB personally reviewed - nonspecific gas pattern Decrease prednisone to 20 mg starting tomorrow - home dose per ambulatory med list Seen by wound RN for stage III pressure injury to Left Buttock and Left Medial Buttock: recommends silver + foam dressing Cont PT/OT. 02/02/2018-8:15 PM-I examined the patient independently. I reviewed this chart, the patient history, and the SOFTWARE ASSET MANAGER's/PA's documented findings as above. We discussed and formulated the assessment and plan as above with the additions below.-Dr. Kebede Patient was seen this evening in his room. He states he's feeling okay. States he is breathing without difficulties. He states he was able to walk a little bit today. He states he's eating a little bit better today. On exam he is alert and in no acute distress. Chest reveals crackles bilaterally. Cardiovascular reveals a regular rate and rhythm. Abdomen is soft and nontender. Extremities reveal 3+ edema in the legs Impression and plan Continue Rocephin for Escherichia coli bacteremia Agree with vitamin D replacement for low vitamin D. Agree with IV iron. We'll repeat albumin and Lasix this evening and again in the morning. The patient does have a Abraham catheter. Weight continues to decrease. Consult dietitian to start a calorie count Consider IRU screen DVT Prophylaxis: SCD's GI Prophylaxis: Protonix Resuscitation Status: Full Code - Physician Narrative Narrative: Date: 02/02/18 Time: 1448 Hospital Course Summary Disclaimer: The visit summary below is not to be considered part of the above Progress Note. Hospital Course: 01/26/18 Inpatient admission to [facility] [place] of sepsis syndrome secondary to pulmonary source. Initiate ceftriaxone and azithromycin for pulmonary coverage. Will utilize neb treatments of DuoNeb QID and q 4prn along with budesonide BID. Start Solu-Medrol 125mg IV q 6 hours to decrease pulmonary inflammation. Consult with Dr Ayala for pulmonary evaluation and recommendations. IVF given via EMS. Will give bolus of 500cc and then continue NS with 20 KCl at 100 cc/hr. Recheck Lactate. Speech consult secondary to dysphagia. Continue Protonix BID. PT/OT consult to help improve strength and functional abilities. SCD for DVT prevention. Check TSH secondary to fatigue and functional decline. Check Prealbumin due to underweight. May continue home medications. Discussed code status with patient and his daughter - does have some ambivalence. Will have status full code. Care to return to Dr Doll at time of discharge from [facility]. 01/27/18 Continue ceftriaxone and azithromycin for pulmonary coverage. With positive Blood cultures, will repeat. Continue neb treatments of DuoNeb QID and q 4prn along with budesonide BID. Decrease Solu-Medrol to 62.5mg IV q 6 hours. Decrease IVF to 50cc/hr as oral drive starting to increase. PT/OT/Speech initiated to help improve functional status. 01/28/18 Continue ceftriaxone and azithromycin for pulmonary coverage. BS positive with E coli -sensitive to ceftriaxone. Repeat blood cultures drawn this morning. Discontinue IV fluids. Monitor oral intake. Nutritional supplements. Given lasix 20 mg IV x1. Presence of edema to all extremities. Weight up 6Kg from admission. Abraham was placed on 01/28/18. Continue neb treatments of DuoNeb QID and q 4prn along with budesonide BID. 01/29/18 Continue ceftriaxone 1 gm daily will cover E-Coli bacteremia- Recommendations Tx for 7-14 days. Continue azithromycin day 4/5 for pulmonary coverage. Can D/C after tomorrow. Asked nursing staff to place SAGAR hose to BLE for compression. Could consider scheduling diuretics. Continue neb treatments of DuoNeb QID and q 4prn along with budesonide BID. On baseline oxygen. 01/30/18 Discontinue Azithromycin as course is complete. Continue ceftriaxone 1 gm daily will cover E-Coli bacteremia- Will need tx --> . Continue with SCD/SAGAR hose to BLE to decrease edema and decrease risk for DVT. Re-Consult PT/OT- would like to get patient up and move. Ambulate with nursing QID. O2 at baseline at rest. Continues on scheduled Solu-Medrol. Add ISS to help sugars. Planning to SNU at [facility] once medically stable. 01/31/18 Continue ceftriaxone 1 gm daily will cover E-Coli bacteremia- Will need tx --> Decrease steroids to Prednisone 30 mg daily starting tomorrow. DC IV solu- medrol this evening Continue with sagar hose to BLE for compression O2 at baseline at rest. Labs reviewed, Increase in K today. Will recheck tomorrow am. 02/01/18 Continue ceftriaxone 1 gm daily will cover E-Coli bacteremia through 02/11/18 K improved to 5.1. Calcium is low at 6.6 with an ionized calcium of only 1. Calcium was initiated. Question hypocalcemia contributing to his weakness. CO2 has been slightly trending up while gap is 4. ? association with electrolyte abnormalities versus IV diuresis. BGM have ranged 168-205. Thrombocytopenia improved to 100K today. Hgb down to 8.0 - iron studies pending. Continue Prednisone. Dietary consult ordered for tomorrow. 02/02/18 Continue ceftriaxone 1 gm daily will cover E-Coli bacteremia through 02/11/18. WBC up to 11.4. Afebrile. Hgb 8.0, iron 38, TIBC 155 -- IV iron ordered. Platelets up to 109. K 5.1. Phos 2.2. Vit D level was markedly low <12.5 -- start ergocalciferol 50, 000 U per week x 8 weeks (Per UpToDate, with prolonged, severe vit D deficiency , there is reduced absorption of calcium and phosphorous --> hypocalcemia and secondary hyperparathyroidism --> phosphaturia bone demineralization) KUB personally reviewed - nonspecific gas pattern Decrease prednisone to 20 mg starting tomorrow - home dose per ambulatory med list Seen by wound RN for stage III pressure injury to Left Buttock and Left Medial Buttock: recommends silver + foam dressing
[2018-02-02] MEDS: ERGOCALCIFEROL 50,000 UNIT CAPSULE PO SCH (15:39)
[2018-02-02] MEDS: SALINE FLUSH 10ml SYRINGE IVF PRN (15:39)
[2018-02-02] MEDS: CEFTRIAXONE 1 G in D5W 100 ML IV SCH (15:39)
[2018-02-02] MEDS ORDERED: ALBUMIN HUMAN 25gm (25%) 100ml IV ONE (20:11)
[2018-02-02] MEDS ORDERED: FUROSEMIDE 40 MG/4 ML INJECTION IVP ONE (20:15)
[2018-02-02] MEDS: ATENOLOL 25 MG TABLET PO SCH (21:45)
[2018-02-02] MEDS: ATORVASTATIN 20 MG TABLET PO SCH (21:45)
[2018-02-02] MEDS: ASPIRIN *EC* 81 MG TABLET PO SCH (21:45)
[2018-02-02] MEDS: LIDOCAINE REMOVAL TOP SCH (21:46)
[2018-02-03] MEDS: INSULIN REGULAR, HUMAN 100 UNIT/ML INJECTION SQ PRN ×2 (06:34→20:26)
[2018-02-03] MEDS: PANTOPRAZOLE 40 MG TABLET PO SCH ×2 (06:34→17:27)
[2018-02-03] MEDS ORDERED: ALBUMIN HUMAN 25gm (25%) 100ml IV ONE ×2 (07:00→16:30)
[2018-02-03] MEDS: BUDESONIDE INH.SOLN 0.5mg/2ml NEB AEROSOL SCH ×2 (07:58→19:12)
[2018-02-03] MEDS: ALBUTEROL/IPRATROPIUM 2.5mg-0.5mg/3ml NEB AEROSOL SCH ×4 (07:59→19:12)
[2018-02-03] MEDS: SALINE FLUSH 10ml SYRINGE IVF PRN ×2 (08:24→18:00)
[2018-02-03] MEDS: PHOSPHORUS 250 MG TABLET PO SCH ×3 (08:24→17:27)
[2018-02-03] MEDS: POLYETHYL GLYCOL 3350 17gm PACKET PO SCH (08:25)
[2018-02-03] MEDS: LIDOCAINE 5% PATCH TOP SCH (08:25)
[2018-02-03] MEDS: CALCIUM 600 + VIT D 400 TABLET PO SCH ×2 (08:25→20:05)
[2018-02-03] MEDS: PredniSONE 10 MG TABLET PO SCH (08:25)
[2018-02-03] MEDS: GUAIFENESIN/D-METHORPHAN 600mg/30mg TABLET PO SCH ×2 (08:25→20:05)
[2018-02-03] MEDS ORDERED: FUROSEMIDE 40 MG/4 ML INJECTION IVP ONE ×2 (09:00→18:30)
[2018-02-03] MEDS: HYDROCODONE/APAP 7.5 MG/325 MG TABLET PO PRN ×2 (12:42→20:04)
--- NOTE | 2018-02-03 14:41 | Pulmonology Progress Note ---
Subjective Principal diagnosis: pulmonary fibrosis Interval history: up eating, drinking Ensure. on 1 liter O2 by [place]. states he is eating well. no new complaints Exam Vital signs: Temperature 97.3 F 02/03/18 08:00 Pulse Rate 87 02/03/18 08:00 Respiratory Rate 20 02/03/18 11:58 Blood Pressure 144/69 H 02/03/18 08:00 Pulse Oximetry 94 02/03/18 11:58 Inpatient Medications: Generic Name Dose Route Start Last Admin Trade Name Freq PRN Reason Stop Dose Admin Acetaminophen 650 mg 01/26/18 17:37 01/31/18 11:33 Tylenol PO 650 mg Q5H PRN Administration Discomfort Hydrocodone Bitart/Acetaminophen 1 tab 01/26/18 17:37 02/03/18 12:42 [place] 7.5/325 PO 1 tab Q4H PRN Administration Pain Albuterol/Ipratropium 3 ml 01/26/18 19:00 02/03/18 11:47 Duoneb AEROSOL 3 ml RTQID MANAN Administration Albuterol/Ipratropium 3 ml 01/26/18 17:37 Duoneb AEROSOL Q4HR PRN Shortness of air Aspirin 81 mg 01/26/18 21:00 02/02/18 21:45 Ecotrin PO 81 mg HS MANAN Administration Atenolol 25 mg 01/26/18 21:00 02/02/18 21:45 Tenormin PO 25 mg HS MANAN Administration Atorvastatin Calcium 20 mg 01/26/18 21:00 02/02/18 21:45 Lipitor PO 20 mg HS MANAN Administration Bisacodyl 10 mg 01/26/18 17:37 01/29/18 16:37 Dulcolax RECTALLY 10 mg DAILY PRN Administration Constipation Budesonide 0.5 mg 01/26/18 19:00 02/03/18 07:58 Pulmicort Inhalation AEROSOL 0.5 mg RTBID MANAN Administration Calcium/Vitamin D 1 tab 02/01/18 09:00 02/03/18 08:25 Caltrate + D PO 1 tab BID MANAN Administration Ergocalciferol 50,000 unit 02/02/18 15:00 02/02/18 15:39 Vitamin D-2 PO 03/23/18 15:01 50,000 unit Q7D MANAN Administration Guaifenesin/Dextromethorphan 1 tab 01/26/18 21:00 02/03/18 08:25 Mucinex Dm PO 1 tab BID MANAN Administration Ceftriaxone Sodium 1 g/ 100 mls @ 200 mls/hr 01/27/18 16:00 02/02/18 16:10 Dextrose IV Infused Q24H MANAN Infusion Insulin Human Regular 2 - 8 unit 01/30/18 14:01 02/03/18 06:34 Novolin R SQ 2 unit SS PRN Administration Hyperglycemia Protocol Lidocaine 1 patch 02/01/18 14:00 02/03/18 08:25 Lidoderm TOP 1 patch DAILY MANAN Administration Lidocaine HCl/Dextrose 1 removal 02/01/18 21:00 02/02/18 21:46 Lidoderm Patch Removal TOP 1 removal 2100 MANAN Administration Meloxicam 15 mg 01/26/18 17:37 01/26/18 20:54 Mobic PO 15 mg DAILY PRN Administration Pain Menthol 1 lozenge 01/26/18 17:37 Ricola Sf MM PRN PRN Cough Pantoprazole Sodium 40 mg 01/26/18 18:44 02/03/18 06:34 Protonix Tab PO 40 mg ACBID MANAN Administration Polyethylene Glycol 17 gm 01/28/18 16:00 02/03/18 08:25 Miralax PO 17 gm DAILY MANAN Administration Prednisone 20 mg 02/03/18 08:00 02/03/18 08:25 Deltasone 10 Mg PO 20 mg WB MANAN Administration Prochlorperazine Edisylate 10 mg 01/26/18 17:37 Compazine Iv IVP Q6H PRN Nausea &/or vomiting Sodium Chloride 10 - 80 ml 01/26/18 14:54 02/03/18 08:24 Iv Flush IVF 10 ml PRN PRN Administration Flushing Sodium Chloride 500 ml 01/28/18 16:07 01/31/18 18:29 Normal Saline IV 500 ml PRN PRN Administration Sodium Phosphate 500 mg 02/03/18 08:00 02/03/18 11:19 K-Phos *Neutral* Tablet PO 500 mg WM MANAN Administration Discontinued Medications Generic Name Dose Route Start Last Admin Trade Name Freq PRN Reason Stop Dose Admin Acetaminophen 1,000 mg 01/26/18 15:45 01/26/18 15:54 Tylenol PO 1,000 mg O MANAN Administration Albumin Human 25 g 02/02/18 20:11 02/02/18 21:57 Albumin Human 25gm IV 02/02/18 20:12 25 g O ONE Administration Albumin Human 25 g 02/03/18 07:00 02/03/18 06:34 Albumin Human 25gm IV 02/03/18 07:01 25 g O ONE Administration Furosemide 20 mg 01/28/18 11:33 01/28/18 11:50 Lasix 20 Mg/2 Ml IVP 01/28/18 11:34 20 mg ONCE ONE Administration Furosemide 20 mg 01/29/18 16:05 01/29/18 16:37 Lasix 20 Mg/2 Ml IVP 01/29/18 16:06 20 mg ONCE ONE Administration Furosemide 40 mg 01/30/18 09:47 01/30/18 10:40 Lasix 40 Mg/4 Ml IVP 01/30/18 09:48 40 mg O ONE Administration Furosemide 40 mg 01/31/18 18:00 01/31/18 21:27 Lasix 40 Mg/4 Ml IVP 01/31/18 18:01 40 mg O ONE Administration Furosemide 40 mg 02/01/18 07:30 02/01/18 13:57 Lasix 40 Mg/4 Ml IVP 02/01/18 07:31 40 mg O ONE Administration Furosemide 40 mg 02/02/18 20:15 02/02/18 23:37 Lasix 40 Mg/4 Ml IVP 02/02/18 20:16 40 mg O ONE Administration Furosemide 40 mg 02/03/18 09:00 02/03/18 08:24 Lasix 40 Mg/4 Ml IVP 02/03/18 09:01 40 mg O ONE Administration Ceftriaxone Sodium 1 gm/ 100 mls @ 200 mls/hr 01/26/18 15:50 01/26/18 16:30 Sodium Chloride IV 01/26/18 16:19 Infused O ONE Infusion Sodium Chloride 500 mls @ 999.9 mls/hr 01/26/18 16:04 Normal Saline IV 01/26/18 16:33 .Q30M ONE Azithromycin 500 mg/ Sodium 250 mls @ 167 mls/hr 01/26/18 16:21 01/26/18 18: 13 Chloride IV 01/26/18 17:50 Infused O ONE Infusion Azithromycin 500 mg/ Sodium 250 mls @ 167 mls/hr 01/27/18 16:00 01/29/18 18: 15 Chloride IV Infused Q24H MANAN Infusion Potassium Chloride/Sodium Chloride 1,000 mls @ 100 mls/hr 01/26/18 17:37 05/07 10:48 Ns With Kcl 20 Meq Premix IV Infused .Q10H MANAN Infusion Sodium Chloride 500 mls @ 999.9 mls/hr 01/26/18 18:32 01/26/18 19:04 Normal Saline IV 01/26/18 19:01 Infused .Q30M ONE Infusion Sodium Chloride 1,000 mls @ 999.9 mls/hr 01/26/18 19:43 01/26/18 21:00 Normal Saline IV 01/26/18 20:42 Infused .Q1H ONE Infusion Potassium Chloride/Sodium Chloride 1,000 mls @ 50 mls/hr 01/27/18 10:18 01/28 11:50 1/2 Ns With Kcl 20meq Premix IV Infused .Q20H MANAN Infusion Albumin Human 25 g/ IV 100 mls @ 50 mls/hr 01/31/18 17:56 01/31/18 20:30 Solution IV 01/31/18 19:55 Infused O ONE Infusion Albumin Human 100 mls @ 50 mls/hr 02/01/18 10:00 02/01/18 13:23 Albumin Human 25gm IV 02/01/18 11:59 Infused O ONE Infusion Magnesium Hydroxide 30 ml 01/26/18 17:37 01/29/18 17:53 Mom PO 30 ml DAILY PRN Administration Constipation Methylprednisolone Sodium Succinate 125 mg 01/26/18 17:37 01/27/18 08:11 Solu-Medrol IVP 125 mg Q6HR MANAN Administration Methylprednisolone Sodium Succinate 62.5 mg 01/27/18 15:00 01/31/18 21:28 Solu-Medrol IVP 01/31/18 21:00 62.5 mg Q6HR MANAN Administration Pantoprazole Sodium 40 mg 01/27/18 06:30 Protonix Tab PO ACB MANAN Pharmacy Consult 1 each 01/26/18 17:57 Pharmacy Consult - Fall Risk 01/26/18 17:58 ONE TIME ONE Pneumococcal 7-Valent Conj Vacc 0.5 ml 01/27/18 13:15 01/27/18 13:28 Prevnar 13 IM 01/27/18 13:16 0.5 ml .ONCE ONE Administration Prednisone 30 mg 02/01/18 08:00 02/02/18 08:37 Deltasone 10 Mg PO 30 mg WB MANAN Administration - Constitutional no acute distress, mild distress - Routine HEENT Exam Eye: Absent: conjunctival icterus - Routine Neck Exam Present: supple, JVD - Routine Respiratory Exam Present: crackles - Routine Cardiovascular Exam Present: RRR - Urinary Catheter Management Urethral Cath placed during this visit: yes Insertion date: 01/26/18 Results - Laboratory Findings Laboratory: Laboratory Results - last 48 hr 02/01/18 02/01/18 02/01/18 07:56 07:56 14:40 WBC RBC Hgb Hct MCV MCH MCHC RDW Std Deviation Plt Count MPV Immature Gran % (Auto) Neut % (Auto) Lymph % (Auto) [place] % (Auto) Eos % (Auto) Baso % (Auto) Neut # (Auto) Lymph # (Auto) [place] # (Auto) Eos # (Auto) Baso # (Auto) Abs Immat Gran (auto) Neutrophils % (Manual) Lymphocytes % (Manual) Monocytes % (Manual) Neutrophils # (Manual) Lymphocytes # (Manual) Monocytes # (Manual) Poikilocytosis Anisocytosis Tear Drop Cells Ovalocytes Nathaniel Cells Acanthocytes (Spur) Schistocytes RBC Morph Comment Turbidity Sodium Potassium Chloride Carbon Dioxide Anion Gap BUN Creatinine GFR Calculation BUN/Creatinine Ratio Glucose Glucometer 168 Calculated Osmolality Calcium Phosphorus Magnesium Iron 38 L TIBC 155 L % Saturation 25 Icterus Index Albumin 25-OH Vitamin D Total < 12.8 L Specimen Hemolysis 02/01/18 02/01/18 02/02/18 16:31 21:07 04:00 WBC 11.4 H D RBC 2.62 L Hgb 8.0 L Hct 26.0 L MCV 99.2 MCH 30.5 MCHC 30.8 L RDW Std Deviation 48.8 Plt Count 109 L MPV 10.3 Immature Gran % (Auto) Not performed Neut % (Auto) Not performed Lymph % (Auto) Not performed [place] % (Auto) Not performed Eos % (Auto) Not performed Baso % (Auto) Not performed Neut # (Auto) Not performed Lymph # (Auto) Not performed [place] # (Auto) Not performed Eos # (Auto) Not performed Baso # (Auto) Not performed Abs Immat Gran (auto) Not performed Neutrophils % (Manual) 98.0 H Lymphocytes % (Manual) Monocytes % (Manual) 2.0 Neutrophils # (Manual) 11.2 H Lymphocytes # (Manual) Monocytes # (Manual) 0.2 Poikilocytosis 3+ Anisocytosis 1+ Tear Drop Cells 1+ Ovalocytes 1+ Nathaniel Cells 2+ Acanthocytes (Spur) 3+ Schistocytes 1+ RBC Morph Comment Abnormal Turbidity Sodium Potassium Chloride Carbon Dioxide Anion Gap BUN Creatinine GFR Calculation BUN/Creatinine Ratio Glucose Glucometer 158 154 Calculated Osmolality Calcium Phosphorus Magnesium Iron TIBC % Saturation Icterus Index Albumin 25-OH Vitamin D Total Specimen Hemolysis 02/02/18 02/02/18 02/02/18 04:00 05:59 10:19 WBC RBC Hgb Hct MCV MCH MCHC RDW Std Deviation Plt Count MPV Immature Gran % (Auto) Neut % (Auto) Lymph % (Auto) [place] % (Auto) Eos % (Auto) Baso % (Auto) Neut # (Auto) Lymph # (Auto) [place] # (Auto) Eos # (Auto) Baso # (Auto) Abs Immat Gran (auto) Neutrophils % (Manual) Lymphocytes % (Manual) Monocytes % (Manual) Neutrophils # (Manual) Lymphocytes # (Manual) Monocytes # (Manual) Poikilocytosis Anisocytosis Tear Drop Cells Ovalocytes [place] Cells Acanthocytes (Spur) Schistocytes RBC Morph Comment Turbidity < 20 Sodium 140 Potassium 5.1 H Chloride 105 Carbon Dioxide 31 H Anion Gap 4 L BUN 35.0 H Creatinine 0.5 L GFR Calculation 158 BUN/Creatinine Ratio 70 H Glucose 139 H Glucometer 192 84 Calculated Osmolality 279 Calcium 6.9 L Phosphorus 2.2 L Magnesium Iron TIBC % Saturation Icterus Index < 2 Albumin 2.2 L 25-OH Vitamin D Total Specimen Hemolysis < 15 02/02/18 02/02/18 02/03/18 14:13 20:22 03:42 WBC 9.0 RBC 2.66 L Hgb 8.0 L Hct 25.7 L MCV 96.6 MCH 30.1 MCHC 31.1 RDW Std Deviation 46.1 Plt Count 115 L MPV 10.5 Immature Gran % (Auto) Not performed Neut % (Auto) Not performed Lymph % (Auto) Not performed [place] % (Auto) Not performed Eos % (Auto) Not performed Baso % (Auto) Not performed Neut # (Auto) Not performed Lymph # (Auto) Not performed [place] # (Auto) Not performed Eos # (Auto) Not performed Baso # (Auto) Not performed Abs Immat Gran (auto) Not performed Neutrophils % (Manual) 95.0 H Lymphocytes % (Manual) 4.0 L Monocytes % (Manual) 1.0 Neutrophils # (Manual) 8.6 H Lymphocytes # (Manual) 0.4 L Monocytes # (Manual) 0.1 Poikilocytosis 3+ Anisocytosis 1+ Tear Drop Cells Ovalocytes 1+ [place] Cells 2+ Acanthocytes (Spur) 3+ Schistocytes 1+ RBC Morph Comment Abnormal Turbidity Sodium Potassium Chloride Carbon Dioxide Anion Gap BUN Creatinine GFR Calculation BUN/Creatinine Ratio Glucose Glucometer 148 241 Calculated Osmolality Calcium Phosphorus Magnesium Iron TIBC % Saturation Icterus Index Albumin 25-OH Vitamin D Total Specimen Hemolysis 02/03/18 02/03/18 02/03/18 03:42 05:45 10:28 WBC RBC Hgb Hct MCV MCH MCHC RDW Std Deviation Plt Count MPV Immature Gran % (Auto) Neut % (Auto) Lymph % (Auto) [place] % (Auto) Eos % (Auto) Baso % (Auto) Neut # (Auto) Lymph # (Auto) [place] # (Auto) Eos # (Auto) Baso # (Auto) Abs Immat Gran (auto) Neutrophils % (Manual) Lymphocytes % (Manual) Monocytes % (Manual) Neutrophils # (Manual) Lymphocytes # (Manual) Monocytes # (Manual) Poikilocytosis Anisocytosis Tear Drop Cells Ovalocytes Nathaniel Cells Acanthocytes (Spur) Schistocytes RBC Morph Comment Turbidity < 20 Sodium 140 Potassium 4.4 Chloride 104 Carbon Dioxide 30 Anion Gap 6 BUN 31.0 H Creatinine 0.5 L GFR Calculation 158 BUN/Creatinine Ratio 62 H Glucose 122 H Glucometer 160 92 Calculated Osmolality 277 Calcium 7.2 L Phosphorus 2.1 L Magnesium 2.4 H Iron TIBC % Saturation Icterus Index < 2 Albumin 25-OH Vitamin D Total Specimen Hemolysis < 15 02/03/18 14:03 WBC RBC Hgb Hct MCV MCH MCHC RDW Std Deviation Plt Count MPV Immature Gran % (Auto) Neut % (Auto) Lymph % (Auto) [place] % (Auto) Eos % (Auto) Baso % (Auto) Neut # (Auto) Lymph # (Auto) [place] # (Auto) Eos # (Auto) Baso # (Auto) Abs Immat Gran (auto) Neutrophils % (Manual) Lymphocytes % (Manual) Monocytes % (Manual) Neutrophils # (Manual) Lymphocytes # (Manual) Monocytes # (Manual) Poikilocytosis Anisocytosis Tear Drop Cells Ovalocytes Nathaniel Cells Acanthocytes (Spur) Schistocytes RBC Morph Comment Turbidity Sodium Potassium Chloride Carbon Dioxide Anion Gap BUN Creatinine GFR Calculation BUN/Creatinine Ratio Glucose Glucometer 99 Calculated Osmolality Calcium Phosphorus Magnesium Iron TIBC % Saturation Icterus Index Albumin 25-OH Vitamin D Total Specimen Hemolysis Assessment and Plan (1) Acute and chronic respiratory failure with hypoxia Status: Acute Assessment and plan: continue O2 by [place] (currently 1-2 lpm at rest) to keep sat >90%. 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 He is currently being managed on Cellcept and Predisone. I agree with PO prednisone 30 mg daily at this time and will hold Cellcept. It is unclear whether the Cellcept is adding a great deal to his care at this time and we will discuss the possibility of stopping Cellcept and monitoring closely. Seems to be improving and may be able to discharge soon with outpatient followup. Plan on discontinuing Cellcept on discharge Current Visit: Yes (3) Pneumonia Status: Acute Assessment and plan: much improved after empiric antibiotics Current Visit: Yes - Time Spent With Patient Total time spent is greater than 50% in coordination of care (as documented) at patient's floor/unit and/or counseling patient: less than 15 minutes
--- NOTE | 2018-02-03 15:18 | Progress Note ---
- Date 02/03/18 Subjective: Mr Negron is seen today in follow up. He is resting in bed on baseline oxygen. His only complain is some back pain to the medial back as he is having some erythema wound from pressure. Nursing staff is doing dressing and frequent changes. Otherwise, he denies having chest pain, dizziness, shortness of breath or abdominal pain. Vital signs stable. Continue to work on [employer]. Objective Vital signs: Temperature 97.3 F 02/03/18 08:00 Pulse Rate 87 02/03/18 08:00 Respiratory Rate 18 02/03/18 15:05 Blood Pressure 144/69 H 02/03/18 08:00 Pulse Oximetry 95 02/03/18 15:05 Height/Weight/BMI: Height 1.8 m Weight 64.9 kg Body Mass Index 19.7 - Constitutional Present: no acute distress, well nourished, well developed - Routine HEENT Exam Eye: Present: EOMI ENT: Present: mucous membranes moist, dentition normal - Routine Respiratory Exam Present: diminished air movement. Absent: wheezes - Routine Cardiovascular Exam Present: RRR, S1, S2. Absent: murmur - Routine Abdominal Exam Present: soft, normoactive bowel sounds, non distended. Absent: tenderness - Routine Extremities Exam Present: edema - Routine Skin Exam Present: intact, dry, warm Comments: buttock wound, Medical back wound - Routine Neurological Exam Present: alert, oriented X3, CN II-XII intact - Routine Lymphatic Exam Lymphatic: Absent: adenopathy - Routine Psychiatric Exam Present: normal affect Results - Labs CBC & Chem 7: 02/03/18 03:42 02/03/18 03:42 Microbiology Results: Microbiology 01/28/18 04:57 Peripheral/Iv Start Blood Culture - Final No Growth After 5 Days 01/28/18 04:51 Peripheral/Iv Start Blood Culture - Final No Growth After 5 Days 01/26/18 15:08 Peripheral/Iv Start Gram Stain - Final 01/26/18 15:08 Peripheral/Iv Start Blood Culture - Final Escherichia coli 01/26/18 15:02 Peripheral/Iv Start Gram Stain - Final 01/26/18 15:02 Peripheral/Iv Start Blood Culture - Final Escherichia coli Assessment and Plan Assessment and Plan: Assessment Sepsis syndrome manifested by temp elevation to 102.5, tachycardia and tachypnea - secondary to E. coli Bacteremia - resolved Bacteremia with E coli Pneumonia Interstitial lung disease with worsening respiratory status. Chronic hypoxic respiratory failure - on home O2 at 2L Severe malnutrition - Severe Protein Calorie malnutrition Hypoalbuminemia Functional decline Anorexia Hyperkalemia Gait instability/Gen debility LE edema - secondary to malnutrition Right medial buttock pressure ulcer, Stage III - (POA) Chronic anemia Vitamin D Deficiency Hypocalcemia Hypermagnesemia Hypophosphatemia CAD HTN HDL GERD/esophageal stricture - S/P dilatation 11/07/17 Dysphagia - improved post esophageal stricture BPH Osteoporosis Underweight with BMI 17.2 Hx compression fracture to back - chronic back pain Hx Herminie filter placement in 2007 Plan Continue ceftriaxone 1 gm daily will cover E-Coli bacteremia through 02/11/18. Continue with K-Phos oral supplementation-, phosphorus this morning 2.1, magnesium 2.4. Continue with vitamin D supplementation Will give an additional dose of IV albumin 25 grams 1. Later this afternoon, followed by Lasix 40 milligrams IV 1. Patient also received this regimen this morning Overall blood sugars have been well controlled today. Prednisone taper Wound care as per the wound team as patient does have multiple buttock and medial back wounds Cont PT/OT. 02/03/2018-4:40 PM-I examined the patient independently. I reviewed this chart, the patient history, and the [employer]/PA's documented findings as above. We discussed and formulated the assessment and plan as above with the additions below.-Dr. Kebede Patient states he is a little more short of breath with activity today. He is not short of breath at rest. He is eating a little better today. He is trying to drink the supplement shakes as well. He denies any pain. On exam he is alert and in no acute distress. Oropharynx reveals some white patches in the posterior pharynx, but this may be due to his denture adhesive. He denies any pain in his mouth. Chest reveals crackles bilaterally. Cardiovascular reveals a regular rate and rhythm with a 2/6 systolic murmur. Abdomen is soft and nontender. Extremities reveal 3+ lower extremity edema in the calves and +1-2 edema in the thighs. Skin is warm and dry and without rashes Impression and plan Continue antibiotics for Escherichia coli bacteremia Titrate steroids as tolerated Will increase Lasix and albumin in hopes of further diuresis. May need to switch to Bumex if not improving. Recheck renal panel and CBC tomorrow. Start a multivitamin once daily. - Physician Narrative Narrative: Date: 02/03/18 Time: 1514 Hospital Course Summary Disclaimer: The visit summary below is not to be considered part of the above Progress Note. Hospital Course: 01/26/18 Inpatient admission to [facility] for treatment of sepsis syndrome secondary to pulmonary source. Initiate ceftriaxone and azithromycin for pulmonary coverage. Will utilize neb treatments of DuoNeb QID and q 4prn along with budesonide BID. Start Solu-Medrol 125mg IV q 6 hours to decrease pulmonary inflammation. Consult with Dr Ayala for pulmonary evaluation and recommendations. IVF given via EMS. Will give bolus of 500cc and then continue NS with 20 KCl at 100 cc/hr. Recheck Lactate. Speech consult secondary to dysphagia. Continue Protonix BID. PT/OT consult to help improve strength and functional abilities. SCD for DVT prevention. Check TSH secondary to fatigue and functional decline. Check Prealbumin due to underweight. May continue home medications. Discussed code status with patient and his daughter - does have some ambivalence. Will have status full code. Care to return to Dr Doll at time of discharge from [facility]. 01/27/18 Continue ceftriaxone and azithromycin for pulmonary coverage. With positive Blood cultures, will repeat. Continue neb treatments of DuoNeb QID and q 4prn along with budesonide BID. Decrease Solu-Medrol to 62.5mg IV q 6 hours. Decrease IVF to 50cc/hr as oral drive starting to increase. PT/OT/Speech initiated to help improve functional status. 01/28/18 Continue ceftriaxone and azithromycin for pulmonary coverage. BS positive with E coli -sensitive to ceftriaxone. Repeat blood cultures drawn this morning. Discontinue IV fluids. Monitor oral intake. Nutritional supplements. Given lasix 20 mg IV x1. Presence of edema to all extremities. Weight up 6Kg from admission. Abraham was placed on 01/28/18. Continue neb treatments of DuoNeb QID and q 4prn along with budesonide BID. 01/29/18 Continue ceftriaxone 1 gm daily will cover E-Coli bacteremia- Recommendations Tx for 7-14 days. Continue azithromycin day 4/5 for pulmonary coverage. Can D/C after tomorrow. Asked nursing staff to place SAGAR hose to BLE for compression. Could consider scheduling diuretics. Continue neb treatments of DuoNeb QID and q 4prn along with budesonide BID. On baseline oxygen. 01/30/18 Discontinue Azithromycin as course is complete. Continue ceftriaxone 1 gm daily will cover E-Coli bacteremia- Will need tx --> . Continue with SCD/SAGAR hose to BLE to decrease edema and decrease risk for DVT. Re-Consult PT/OT- would like to get patient up and move. Ambulate with nursing QID. O2 at baseline at rest. Continues on scheduled Solu-Medrol. Add ISS to help sugars. Planning to SNU at [facility] once medically stable. 01/31/18 Continue ceftriaxone 1 gm daily will cover E-Coli bacteremia- Will need tx --> Decrease steroids to Prednisone 30 mg daily starting tomorrow. DC IV solu- medrol this evening Continue with sagar hose to BLE for compression O2 at baseline at rest. Labs reviewed, Increase in K today. Will recheck tomorrow am. 02/01/18 Continue ceftriaxone 1 gm daily will cover E-Coli bacteremia through 02/11/18 K improved to 5.1. Calcium is low at 6.6 with an ionized calcium of only 1. Calcium was initiated. Question hypocalcemia contributing to his weakness. CO2 has been slightly trending up while gap is 4. ? association with electrolyte abnormalities versus IV diuresis. BGM have ranged 168-205. Thrombocytopenia improved to 100K today. Hgb down to 8.0 - iron studies pending. Continue Prednisone. Dietary consult ordered for tomorrow. 02/02/18 Continue ceftriaxone 1 gm daily will cover E-Coli bacteremia through 02/11/18. WBC up to 11.4. Afebrile. Hgb 8.0, iron 38, TIBC 155 -- IV iron ordered. Platelets up to 109. K 5.1. Phos 2.2. Vit D level was markedly low <12.5 -- start ergocalciferol 50, 000 U per week x 8 weeks (Per UpToDate, with prolonged, severe vit D deficiency , there is reduced absorption of calcium and phosphorous --> hypocalcemia and secondary hyperparathyroidism --> phosphaturia bone demineralization) KUB personally reviewed - nonspecific gas pattern Decrease prednisone to 20 mg starting tomorrow - home dose per ambulatory med list Seen by wound RN for stage III pressure injury to Left Buttock and Left Medial Buttock: recommends silver + foam dressing 02/03/18 Continue ceftriaxone 1 gm daily will cover E-Coli bacteremia through 02/11/18. Continue with K-Phos oral supplementation-, phosphorus this morning 2.1, magnesium 2.4. Continue with vitamin D supplementation Will give an additional dose of IV albumin 25 grams 1. Later this afternoon, followed by Lasix 40 milligrams IV 1. Patient also received this regimen this morning Overall blood sugars have been well controlled today. Prednisone taper Wound care as per the wound team as patient does have multiple buttock and medial back wounds Cont PT/OT.
[2018-02-03] MEDS ORDERED: ALBUMIN HUMAN IV ONE ×2 (15:30)
[2018-02-03] MEDS ORDERED: RTU SALINE IV ONE ×2 (15:30)
[2018-02-03] MEDS: CEFTRIAXONE 1 G in D5W 100 ML IV SCH (15:58)
[2018-02-03] MEDS: ALBUMIN HUMAN 12.5 GM IV SCH ×2 (16:29→17:16)
[2018-02-03] MEDS: ATORVASTATIN 20 MG TABLET PO SCH (20:05)
[2018-02-03] MEDS: ASPIRIN *EC* 81 MG TABLET PO SCH (20:06)
[2018-02-03] MEDS: ATENOLOL 25 MG TABLET PO SCH (20:06)
[2018-02-04] MEDS: PANTOPRAZOLE 40 MG TABLET PO SCH ×2 (06:24→16:01)
[2018-02-04] MEDS: ALBUTEROL/IPRATROPIUM 2.5mg-0.5mg/3ml NEB AEROSOL SCH ×4 (06:28→20:22)
[2018-02-04] MEDS: BUDESONIDE INH.SOLN 0.5mg/2ml NEB AEROSOL SCH ×2 (06:29→20:22)
[2018-02-04] MEDS: GUAIFENESIN/D-METHORPHAN 600mg/30mg TABLET PO SCH ×2 (08:49→22:58)
[2018-02-04] MEDS: POLYETHYL GLYCOL 3350 17gm PACKET PO SCH (08:49)
[2018-02-04] MEDS: CALCIUM 600 + VIT D 400 TABLET PO SCH ×2 (08:49→22:58)
[2018-02-04] MEDS: MULTI-VITAMIN + MINERAL TABLET PO SCH (08:49)
[2018-02-04] MEDS: PredniSONE 10 MG TABLET PO SCH (08:49)
[2018-02-04] MEDS: LIDOCAINE 5% PATCH TOP SCH (08:49)
[2018-02-04] MEDS: PHOSPHORUS 250 MG TABLET PO SCH ×4 (08:50→17:52)
[2018-02-04] MEDS: BISACODYL 10 MG SUPPOSITORY RECTALLY PRN (11:08)
[2018-02-04] MEDS: HYDROCODONE/APAP 7.5 MG/325 MG TABLET PO PRN (12:10)
[2018-02-04] MEDS: INSULIN REGULAR, HUMAN 100 UNIT/ML INJECTION SQ PRN (14:09)
[2018-02-04] MEDS: SALINE FLUSH 10ml SYRINGE IVF PRN (16:00)
[2018-02-04] MEDS: NS FLUSH BAG 500ml IV PRN (16:00)
[2018-02-04] MEDS: CEFTRIAXONE 1 G in D5W 100 ML IV SCH (16:00)
[2018-02-04] MEDS ORDERED: FALL RISK - PHARMACY CONSULT MC ONE (19:04)
--- NOTE | 2018-02-04 20:04 | Progress Note ---
- Date 02/04/18 Subjective: The patient was seen this evening in his room. He denies any pain. He denies shortness of breath. He is eating and drinking better. He states he was walking well at home. Here he has been refusing to get up out of bed or try to walk with physical therapy. He had finished a mighty shake when I walked in. He said he ate a good supper. He was recorded to have eaten 50% of breakfast and 75% of lunch today. Objective Vital signs: Temperature 97.6 F 02/04/18 16:00 Pulse Rate 88 02/04/18 16:00 Respiratory Rate 20 02/04/18 16:00 Blood Pressure 131/67 02/04/18 16:00 Pulse Oximetry 95 02/04/18 16:00 Height/Weight/BMI: Height 1.8 m Weight 62.5 kg Body Mass Index 19.7 Comments: Afebrile, heart rate 88, respirations 20, blood pressure 131/67 GEN-alert, oriented, no acute distress HEENT-sclera anicteric, oropharynx is moist NECK-supple CV-regular rate and rhythm, 2/6 systolic murmur CHEST-mild crackles bilaterally ABD-soft, nontender with positive bowel sounds -Abraham in place with jayla colored urine EXT-+1 lower extremity edema, much improved NEURO-no focal deficits SKIN-warm and dry, legs mildly mottled, this has been present previously Results - Labs CBC & Chem 7: 02/04/18 04:38 02/04/18 04:38 Labs: Phosphorus 4.4, magnesium 2.4 Microbiology Results: Microbiology 01/28/18 04:57 Peripheral/Iv Start Blood Culture - Final No Growth After 5 Days 01/28/18 04:51 Peripheral/Iv Start Blood Culture - Final No Growth After 5 Days 01/26/18 15:08 Peripheral/Iv Start Gram Stain - Final 01/26/18 15:08 Peripheral/Iv Start Blood Culture - Final Escherichia coli 01/26/18 15:02 Peripheral/Iv Start Gram Stain - Final 01/26/18 15:02 Peripheral/Iv Start Blood Culture - Final Escherichia coli Assessment and Plan (1) Acute and chronic respiratory failure with hypoxia Current visit: Yes Status: Acute Assessment and Plan: Assessment Sepsis syndrome manifested by temp elevation to 102.5, tachycardia and tachypnea - secondary to E. coli Bacteremia - resolved Bacteremia with E coli Pneumonia Interstitial lung disease with worsening respiratory status. Chronic hypoxic respiratory failure - on home O2 at 2L Severe malnutrition - Severe Protein Calorie malnutrition Hypoalbuminemia Functional decline Anorexia Hyperkalemia Gait instability/Gen debility LE edema - secondary to malnutrition Right medial buttock pressure ulcer, Stage III - (POA) Chronic anemia Vitamin D Deficiency Hypocalcemia Hypermagnesemia Hypophosphatemia CAD HTN HDL GERD/esophageal stricture - S/P dilatation 11/07/17 Dysphagia - improved post esophageal stricture BPH Osteoporosis Underweight with BMI 17.2 Hx compression fracture to back - chronic back pain Hx [place] filter placement in 2007 Plan Continue ceftriaxone 1 gm daily will cover E-Coli bacteremia through 02/11/18. Discontinue phosphorus supplementation. Phosphorus is normal Encourage ambulation. Oral intake is improving. We'll hold off on diuresis today. Recheck weight, edema, and renal panel tomorrow. We'll check Hemoccult regarding anemia, hemoglobin is trending down. Recheck CBC tomorrow. Hold aspirin for now. He does not appear to have iron deficiency on iron studies. Continue prednisone 20 mg daily. We'll need to discuss with Dr. Ayala whether this is his usual home dose. Continue PT OT - Physician Narrative Narrative: Date: 02/04/18 Time: 1957 Hospital Course Summary Disclaimer: The visit summary below is not to be considered part of the above Progress Note. Hospital Course: 01/26/18 [place] [facility] [place] of sepsis syndrome secondary to pulmonary source. Initiate ceftriaxone and azithromycin for pulmonary coverage. Will utilize neb treatments of DuoNeb QID and q 4prn along with budesonide BID. Start Solu-Medrol 125mg IV q 6 hours to decrease pulmonary inflammation. Consult with Dr Ayala for pulmonary evaluation and recommendations. IVF given via EMS. Will give bolus of 500cc and then continue NS with 20 KCl at 100 cc/hr. Recheck Lactate. Speech consult secondary to dysphagia. Continue Protonix BID. PT/OT consult to help improve strength and functional abilities. SCD for DVT prevention. Check TSH secondary to fatigue and functional decline. Check Prealbumin due to underweight. May continue home medications. Discussed code status with patient and his daughter - does have some ambivalence. Will have status full code. Care to return to Dr Doll at time of [place] [facility] [place] [place] 01/27/18 Continue ceftriaxone and azithromycin for pulmonary coverage. With positive Blood cultures, will repeat. Continue neb treatments of DuoNeb QID and q 4prn along with budesonide BID. Decrease Solu-Medrol to 62.5mg IV q 6 hours. Decrease IVF to 50cc/hr as oral drive starting to increase. PT/OT/Speech initiated to help improve functional status. 01/28/18 Continue ceftriaxone and azithromycin for pulmonary coverage. BS positive with E coli -sensitive to ceftriaxone. Repeat blood cultures drawn this morning. Discontinue IV fluids. Monitor oral intake. Nutritional supplements. Given lasix 20 mg IV x1. Presence of edema to all extremities. Weight up 6Kg from admission. Abraham was placed on 01/28/18. Continue neb treatments of DuoNeb QID and q 4prn along with budesonide BID. 01/29/18 Continue ceftriaxone 1 gm daily will cover E-Coli bacteremia- Recommendations Tx for 7-14 days. Continue azithromycin day 4/5 for pulmonary coverage. Can D/C after tomorrow. Asked nursing staff to place SAGAR hose to BLE for compression. Could consider scheduling diuretics. Continue neb treatments of DuoNeb QID and q 4prn along with budesonide BID. On baseline oxygen. 01/30/18 Discontinue Azithromycin as course is complete. Continue ceftriaxone 1 gm daily will cover E-Coli bacteremia- Will need tx --> . Continue with SCD/SAGAR hose to BLE to decrease edema and decrease risk for DVT. Re-Consult PT/OT- would like to get patient up and move. Ambulate with nursing QID. O2 at baseline at rest. Continues on scheduled Solu-Medrol. Add ISS to help sugars. Planning to SNU at [facility] once medically stable. 01/31/18 Continue ceftriaxone 1 gm daily will cover E-Coli bacteremia- Will need tx --> Decrease steroids to Prednisone 30 mg daily starting tomorrow. DC IV solu- medrol this evening Continue with sagar hose to BLE for compression O2 at baseline at rest. Labs reviewed, Increase in K today. Will recheck tomorrow am. 02/01/18 Continue ceftriaxone 1 gm daily will cover E-Coli bacteremia through 02/11/18 K improved to 5.1. Calcium is low at 6.6 with an ionized calcium of only 1. Calcium was initiated. Question hypocalcemia contributing to his weakness. CO2 has been slightly trending up while gap is 4. ? association with electrolyte abnormalities versus IV diuresis. BGM have ranged 168-205. Thrombocytopenia improved to 100K today. Hgb down to 8.0 - iron studies pending. Continue Prednisone. Dietary consult ordered for tomorrow. 02/02/18 Continue ceftriaxone 1 gm daily will cover E-Coli bacteremia through 02/11/18. WBC up to 11.4. Afebrile. Hgb 8.0, iron 38, TIBC 155 -- IV iron ordered. Platelets up to 109. K 5.1. Phos 2.2. Vit D level was markedly low <12.5 -- start ergocalciferol 50, 000 U per week x 8 weeks (Per [employer]ToDate, with prolonged, severe vit D deficiency , there is reduced absorption of calcium and phosphorous --> hypocalcemia and secondary hyperparathyroidism --> phosphaturia bone demineralization) KUB personally reviewed - nonspecific gas pattern Decrease prednisone to 20 mg starting tomorrow - home dose per ambulatory med list Seen by wound RN for stage III pressure injury to Left Buttock and Left Medial Buttock: recommends silver + foam dressing 02/03/18 Continue ceftriaxone 1 gm daily will cover E-Coli bacteremia through 02/11/18. Continue with K-Phos oral supplementation-, phosphorus this morning 2.1, magnesium 2.4. Continue with vitamin D supplementation Will give an additional dose of IV albumin 25 grams 1. Later this afternoon, followed by Lasix 40 milligrams IV 1. Patient also received this regimen this morning Overall blood sugars have been well controlled today. Prednisone taper Wound care as per the wound team as patient does have multiple buttock and medial back wounds Cont PT/OT.
[2018-02-04] MEDS: ATENOLOL 25 MG TABLET PO SCH (22:58)
[2018-02-04] MEDS: ATORVASTATIN 20 MG TABLET PO SCH (22:58)
[2018-02-04] MEDS: LIDOCAINE REMOVAL TOP SCH ×2 (22:59)
[2018-02-05] MEDS: PANTOPRAZOLE 40 MG TABLET PO SCH ×2 (05:48→16:46)
[2018-02-05] MEDS: ALBUTEROL/IPRATROPIUM 2.5mg-0.5mg/3ml NEB AEROSOL SCH ×4 (07:03→19:23)
[2018-02-05] MEDS: BUDESONIDE INH.SOLN 0.5mg/2ml NEB AEROSOL SCH ×2 (07:04→19:23)
[2018-02-05] MEDS: GUAIFENESIN/D-METHORPHAN 600mg/30mg TABLET PO SCH ×2 (09:55→20:24)
[2018-02-05] MEDS: HYDROCODONE/APAP 7.5 MG/325 MG TABLET PO PRN ×3 (09:55→20:25)
[2018-02-05] MEDS: PredniSONE 10 MG TABLET PO SCH (09:55)
[2018-02-05] MEDS: CALCIUM 600 + VIT D 400 TABLET PO SCH ×2 (09:55→20:25)
[2018-02-05] MEDS: MULTI-VITAMIN + MINERAL TABLET PO SCH (09:55)
[2018-02-05] MEDS: POLYETHYL GLYCOL 3350 17gm PACKET PO SCH (10:27)
[2018-02-05] MEDS: LIDOCAINE 5% PATCH TOP SCH (10:27)
--- NOTE | 2018-02-05 13:10 | Progress Note ---
- Date 02/05/18 Subjective: Patient resting in bed at the time of interview. No reported chest pain, no palpitations, no subjective fever, no chills, no shortness of breath. As per patient and nursing staff at bedside, patient has decent appetite consuming 50 75 percent of meals. No reported nausea, no vomiting. Hemoglobin 8.1 this morning when compared to 7.6 yesterday. FOBT positive. On review of records, patient had EGD performed on 11/07/[address] Black which showed distal esophagitis with stricture, hiatal hernia, submucosal duodenal mass and pathology reports did not demonstrate any malignancy. In view of anemia and positive stool occult, discussed with patient about consulting general surgery, patient agreeable. Case discussed with Dr. Black over the phone, who will evaluate patient at bedside and provide further recommendations. We'll discuss with soa integration architect, Dr. Torres about weaning off prednisone 20 mg. Objective Vital signs: Temperature 97.6 F 02/05/18 07:25 Pulse Rate 87 02/05/18 07:25 Respiratory Rate 20 02/05/18 10:25 Blood Pressure 141/78 H 02/05/18 07:25 Pulse Oximetry 94 02/05/18 10:25 Height/Weight/BMI: Height 1.8 m Weight 62.1 kg Body Mass Index 19.7 - Additional findings Additional findings: General: Alert, awake, oriented to self and place. Not in acute distress. Head: Pupils equal, round, reactive to light and accommodation. Extraocular movements intact. Negative scleral icterus. Neck: No elevation in JVP. No pharyngeal erythema noted. Chest: The patient does not use accessory muscles for breathing. Lungs: Breath sounds audible on auscultation bilateral lung lua. Faint crackles bilateral lung bases. No wheezing, no rhonchi. No pleural rub. CVS: S1, S2 heard on auscultation. Normal rate and rhythm. No murmur, no S3/S4 gallops. Abdomen: Soft, nontender, no distention. Bowel sounds appreciated on auscultation. : No flank tenderness, no suprapubic distention or tenderness. Skin: No rashes, no induration, no erythema. Capillary refill less than 4 seconds. Extremities: 1+ pitting pedal edema bilateral lower extremities. Bilateral lower extremity SCDs in place. Palpable dorsalis pedis and posterior tibial pulses bilateral lower extremities. BOTTOM LINER: Strength 5/5 bilateral upper and lower extremities. Sensations intact. No slurred speech, no facial droop. No discernible focal neurological deficits. Results - Labs CBC & Chem 7: 02/05/18 04:22 02/05/18 04:22 Microbiology Results: Microbiology 01/28/18 04:57 Peripheral/Iv Start Blood Culture - Final No Growth After 5 Days 01/28/18 04:51 Peripheral/Iv Start Blood Culture - Final No Growth After 5 Days 01/26/18 15:08 Peripheral/Iv Start Gram Stain - Final 01/26/18 15:08 Peripheral/Iv Start Blood Culture - Final Escherichia coli 01/26/18 15:02 Peripheral/Iv Start Gram Stain - Final 01/26/18 15:02 Peripheral/Iv Start Blood Culture - Final Escherichia coli Assessment and Plan (1) Acute and chronic respiratory failure with hypoxia Current visit: Yes Status: Acute Assessment and Plan: Assessment Sepsis syndrome manifested by temp elevation to 102.5, tachycardia and tachypnea - secondary to E. coli Bacteremia - resolved Bacteremia with E coli, resolving Pneumonia Interstitial lung disease with worsening respiratory status. Chronic hypoxic respiratory failure - on home O2 at 2L Anemia, with positive stool occult blood. General surgery consulted. Severe malnutrition - Severe Protein Calorie malnutrition Hypoalbuminemia Functional decline Anorexia Hyperkalemia, resolved Gait instability/Gen debility, PT consulted LE edema - secondary to malnutrition Right medial buttock pressure ulcer, Stage III - (POA) Chronic anemia Vitamin D Deficiency Hypocalcemia Hypermagnesemia Hypophosphatemia CAD HTN HDL GERD/esophageal stricture - S/P dilatation 11/07/17 Dysphagia - improved post esophageal stricture BPH Osteoporosis Underweight with BMI 17.2 Hx compression fracture to back - chronic back pain Hx [place] filter placement in 2007 Plan Continue ceftriaxone 1 gm daily will cover E-Coli bacteremia through 02/11/18. Positive stool occult blood, hemoglobin 8.1 today when compared to 7.6 yesterday. Aspirin held for today. Case discussed with general surgery, Dr. Black over the phone and consult placed. Encourage ambulation. Oral intake is improving. We'll hold off on diuresis today. Recheck weight, urine output, pedal edema, and renal panel tomorrow. We'll check Hemoccult regarding anemia, hemoglobin is trending down. Recheck CBC tomorrow. Hold aspirin for now. He does not appear to have iron deficiency on iron studies. Case discussed with patient's soa integration architect, Dr. Ayala and prednisone dose decreased to 10 mg by mouth daily. Continue PT, OT - Time spent with patient Time with patient PN: 35 minutes - Physician Narrative Narrative: Date: 02/05/18 Time: 1257 Hospital Course Summary Disclaimer: The visit summary below is not to be considered part of the above Progress Note. Hospital Course: 01/26/18 Inpatient admission to [facility] for treatment of sepsis syndrome secondary to pulmonary source. Initiate ceftriaxone and azithromycin for pulmonary coverage. Will utilize neb treatments of DuoNeb QID and q 4prn along with budesonide BID. Start Solu-Medrol 125mg IV q 6 hours to decrease pulmonary inflammation. Consult with Dr Ayala for pulmonary evaluation and recommendations. IVF given via EMS. Will give bolus of 500cc and then continue NS with 20 KCl at 100 cc/hr. Recheck Lactate. Speech consult secondary to dysphagia. Continue Protonix BID. PT/OT consult to help improve strength and functional abilities. SCD for DVT prevention. Check TSH secondary to fatigue and functional decline. Check Prealbumin due to underweight. May continue home medications. Discussed code status with patient and his daughter - does have some ambivalence. Will have status full code. Care to return to Dr Doll at time of discharge from [facility]. 01/27/18 Continue ceftriaxone and azithromycin for pulmonary coverage. With positive Blood cultures, will repeat. Continue neb treatments of DuoNeb QID and q 4prn along with budesonide BID. Decrease Solu-Medrol to 62.5mg IV q 6 hours. Decrease IVF to 50cc/hr as oral drive starting to increase. PT/OT/Speech initiated to help improve functional status. 01/28/18 Continue ceftriaxone and azithromycin for pulmonary coverage. BS positive with E coli -sensitive to ceftriaxone. Repeat blood cultures drawn this morning. Discontinue IV fluids. Monitor oral intake. Nutritional supplements. Given lasix 20 mg IV x1. Presence of edema to all extremities. Weight up 6Kg from admission. Abraham was placed on 01/28/18. Continue neb treatments of DuoNeb QID and q 4prn along with budesonide BID. 01/29/18 Continue ceftriaxone 1 gm daily will cover E-Coli bacteremia- Recommendations Tx for 7-14 days. Continue azithromycin day 4/5 for pulmonary coverage. Can D/C after tomorrow. Asked nursing staff to place SAGAR hose to BLE for compression. Could consider scheduling diuretics. Continue neb treatments of DuoNeb QID and q 4prn along with budesonide BID. On baseline oxygen. 01/30/18 Discontinue Azithromycin as course is complete. Continue ceftriaxone 1 gm daily will cover E-Coli bacteremia- Will need tx --> . Continue with SCD/SAGAR hose to BLE to decrease edema and decrease risk for DVT. Re-Consult PT/OT- would like to get patient up and move. Ambulate with nursing QID. O2 at baseline at rest. Continues on scheduled Solu-Medrol. Add ISS to help sugars. Planning to SNU at [facility] once medically stable. 01/31/18 Continue ceftriaxone 1 gm daily will cover E-Coli bacteremia- Will need tx --> Decrease steroids to Prednisone 30 mg daily starting tomorrow. DC IV solu- medrol this evening Continue with sagar hose to BLE for compression O2 at baseline at rest. Labs reviewed, Increase in K today. Will recheck tomorrow am. 02/01/18 Continue ceftriaxone 1 gm daily will cover E-Coli bacteremia through 02/11/18 K improved to 5.1. Calcium is low at 6.6 with an ionized calcium of only 1. Calcium was initiated. Question hypocalcemia contributing to his weakness. CO2 has been slightly trending up while gap is 4. ? association with electrolyte abnormalities versus IV diuresis. BGM have ranged 168-205. Thrombocytopenia improved to 100K today. Hgb down to 8.0 - iron studies pending. Continue Prednisone. Dietary consult ordered for tomorrow. 02/02/18 Continue ceftriaxone 1 gm daily will cover E-Coli bacteremia through 02/11/18. WBC up to 11.4. Afebrile. Hgb 8.0, iron 38, TIBC 155 -- IV iron ordered. Platelets up to 109. K 5.1. Phos 2.2. Vit D level was markedly low <12.5 -- start ergocalciferol 50, 000 U per week x 8 weeks (Per Up[employer], with prolonged, severe vit D deficiency , there is reduced absorption of calcium and phosphorous --> hypocalcemia and secondary hyperparathyroidism --> phosphaturia bone demineralization) KUB personally reviewed - nonspecific gas pattern Decrease prednisone to 20 mg starting tomorrow - home dose per ambulatory med list Seen by wound RN for stage III pressure injury to Left Buttock and Left Medial Buttock: recommends silver + foam dressing 02/03/18 Continue ceftriaxone 1 gm daily will cover E-Coli bacteremia through 02/11/18. Continue with K-Phos oral supplementation-, phosphorus this morning 2.1, magnesium 2.4. Continue with vitamin D supplementation Will give an additional dose of IV albumin 25 grams 1. Later this afternoon, followed by Lasix 40 milligrams IV 1. Patient also received this regimen this morning Overall blood sugars have been well controlled today. Prednisone taper Wound care as per the wound team as patient does have multiple buttock and medial back wounds Cont PT/OT. 02/04/18 Continue ceftriaxone 1 gm daily will cover E-Coli bacteremia through 02/11/18. Discontinue phosphorus supplementation. Phosphorus is normal Encourage ambulation. Oral intake is improving. We'll hold off on diuresis today. Recheck weight, edema, and renal panel tomorrow. We'll check Hemoccult regarding anemia, hemoglobin is trending down. Recheck CBC tomorrow. Hold aspirin for now. He does not appear to have iron deficiency on iron studies. Continue prednisone 20 mg daily. We'll need to discuss with Dr. Aayla whether this is his usual home dose. 02/05/18 Continue ceftriaxone 1 gm daily will cover E-Coli bacteremia through 02/11/18. Positive stool occult blood, hemoglobin 8.1 today when compared to 7.6 yesterday. Aspirin held for today. Case discussed with general surgery, Dr. Black over the phone and consult placed. Encourage ambulation. Oral intake is improving. We'll hold off on diuresis today. Recheck weight, urine output, pedal edema, and renal panel tomorrow. We'll check Hemoccult regarding anemia, hemoglobin is trending down. Recheck CBC tomorrow. Hold aspirin for now. He does not appear to have iron deficiency on iron studies. Continue prednisone 20 mg daily. Plan to discuss with soa integration architect, Dr. Ayala whether this is his usual home dose. Continue PT, OT
--- NOTE | 2018-02-05 13:35 | General Surgery Consult Note ---
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 Coronary artery disease-Right and left heart catheterization (07/24/16-Dr. Lopes ) - on medical management. HTN. BPH. H/o Nephrolithiasis. H/o DVT with [place] filter placed 2007 - ASA for anticoagulation. H/o subdural bleed ( secondary to fall) 2007 (w/ surgical evacuation). Osteoporosis. History of compression fractures Surgical History: H/o subdural bleed (secondary to fall) 2007 (w/ surgical intervention x 2). [place] filter placed (2007). Ureteral surgery () ( for "kinked" ureter?). cataract removal b/l. vertebroplasty. Esophageal diltation- 2017 Family History Updates: Father -PVD- leg amputation. Mother - pt is unsure of cause of . Sister - . Pt states she of a "broken heart" as she a few weeks after her . - Social History Smoking status: Former smoker second hand exposure: No Substance use type: does not use Alcohol intake frequency: does not drink Housing: house Household members: none Current occupational status: retired Does patient use chewing tobacco?: No Current residence: Apartment/Private Home Medications Home Medications Medication Instructions Recorded Confirmed Type Mycophenolate Mofetil 1,500 mg PO BID 07/01/17 01/26/18 History Aspirin [Aspirin EC] 81 mg PO HS 10/09/17 01/26/18 History Atenolol [Tenormin] 25 mg PO HS 10/09/17 01/26/18 History Atorvastatin [Lipitor] 20 mg PO HS 10/09/17 01/26/18 History Hydrocodone/APAP 7.5/325 [[place] 1 tab PO Q4H PRN 10/09/17 01/26/18 History 7.5/325] Meloxicam 15 mg PO DAILY PRN 10/09/17 01/26/18 History Pantoprazole Tab [Protonix Tab] 40 mg PO ACB #30 tab 11/07/17 01/26/18 Rx PredniSONE [Deltasone 20 mg] 20 mg PO WB 01/26/18 01/26/18 History Allergies Allergy/AdvReac Type Severity Reaction Status Date / Time No Known Drug Allergies Allergy Unknown Verified 01/26/18 15:30 Review of Systems 10-point ROS: negative except for HPI and the following: - General General: Present: other (fatigue, weakness) - Respiratory Respiratory: Present: difficulty breathing (chronic) - Gastrointestinal Gastrointestinal: Present: constipation, blood in stools, other (GERD) - Musculoskeletal Musculoskeletal: Present: back pain, joint pain - Neurological Neurological: Present: muscle weakness - Hematologic/Lymphatic Hematologic/Lymphatic: Present: easy bruising - Vital Signs Last Vital Signs Temp 97.6 F 02/05/18 07:25 Pulse 87 02/05/18 07:25 Resp 20 02/05/18 10:25 BP 141/78 H 02/05/18 07:25 Pulse Ox 94 02/05/18 10:25 - Laboratory Result Diagrams: 02/05/18 04:22 02/05/18 04:22 General Surgery Results - Results Labs: 02/05/18 04:22 02/05/18 04:22
[2018-02-05] MEDS: SALINE FLUSH 10ml SYRINGE IVF PRN (16:46)
[2018-02-05] MEDS: CEFTRIAXONE 1 G in D5W 100 ML IV SCH (16:46)
--- NOTE | 2018-02-05 16:46 | Pulmonology Progress Note ---
Subjective Principal diagnosis: pulmonary fibrosis Interval history: up eating, drinking Ensure/Magic Cups. Remains on O2 by nc. no new complaints Exam Vital signs: Temperature 95.3 F L 02/05/18 15:35 Pulse Rate 86 02/05/18 15:35 Respiratory Rate 10 02/05/18 15:35 Blood Pressure 125/65 02/05/18 15:35 Pulse Oximetry 97 02/05/18 15:35 Inpatient Medications: Generic Name Dose Route Start Last Admin Trade Name Freq PRN Reason Stop Dose Admin Acetaminophen 650 mg 01/26/18 17:37 01/31/18 11:33 Tylenol PO 650 mg Q5H PRN Administration Discomfort Hydrocodone Bitart/Acetaminophen 1 tab 01/26/18 17:37 02/05/18 14:26 [place] 7.5/325 PO 1 tab Q4H PRN Administration Pain Albuterol/Ipratropium 3 ml 01/26/18 19:00 02/05/18 14:44 Duoneb AEROSOL 3 ml RTQID MANAN Administration Albuterol/Ipratropium 3 ml 01/26/18 17:37 Duoneb AEROSOL Q4HR PRN Shortness of air Aspirin 81 mg 01/26/18 21:00 02/03/18 20:06 Ecotrin PO 81 mg HS MANAN Administration Atenolol 25 mg 01/26/18 21:00 02/04/18 22:58 Tenormin PO 25 mg HS MANAN Administration Atorvastatin Calcium 20 mg 01/26/18 21:00 02/04/18 22:58 Lipitor PO 20 mg HS MANAN Administration Bisacodyl 10 mg 01/26/18 17:37 02/04/18 11:08 Dulcolax RECTALLY 10 mg DAILY PRN Administration Constipation Budesonide 0.5 mg 01/26/18 19:00 02/05/18 07:04 Pulmicort Inhalation AEROSOL 0.5 mg RTBID MANAN Administration Calcium/Vitamin D 1 tab 02/01/18 09:00 02/05/18 09:55 Caltrate + D PO 1 tab BID MANAN Administration Ergocalciferol 50,000 unit 02/02/18 15:00 02/02/18 15:39 Vitamin D-2 PO 03/23/18 15:01 50,000 unit Q7D MANAN Administration Guaifenesin/Dextromethorphan 1 tab 01/26/18 21:00 02/05/18 09:55 Mucinex Dm PO 1 tab BID MANAN Administration Ceftriaxone Sodium 1 g/ 100 mls @ 200 mls/hr 01/27/18 16:00 02/04/18 16:30 Dextrose IV Infused Q24H MANAN Infusion Insulin Human Regular 2 - 8 unit 01/30/18 14:01 02/04/18 14:09 Novolin R SQ 2 unit SS PRN Administration Hyperglycemia Protocol Lidocaine 1 patch 02/01/18 14:00 02/05/18 10:27 Lidoderm TOP 1 patch DAILY MANAN Administration Lidocaine HCl/Dextrose 1 removal 02/01/18 21:00 02/04/18 22:59 Lidoderm Patch Removal TOP 1 removal 2100 MANAN Administration Meloxicam 15 mg 01/26/18 17:37 01/26/18 20:54 Mobic PO 15 mg DAILY PRN Administration Pain Menthol 1 lozenge 01/26/18 17:37 Ricola Sf MM PRN PRN Cough Multivitamins/Minerals 1 tab 02/04/18 09:00 02/05/18 09:55 Therapeutic - M PO 1 tab DAILY MANAN Administration Pantoprazole Sodium 40 mg 01/26/18 18:44 02/05/18 05:48 Protonix Tab PO 40 mg ACBID MANAN Administration Polyethylene Glycol 17 gm 01/28/18 16:00 02/05/18 10:27 Miralax PO 17 gm DAILY MANAN Administration Prednisone 10 mg 02/06/18 08:00 Deltasone 10 Mg PO WB MANAN Prochlorperazine Edisylate 10 mg 01/26/18 17:37 Compazine Iv IVP Q6H PRN Nausea &/or vomiting Sodium Chloride 10 - 80 ml 01/26/18 14:54 02/04/18 16:00 Iv Flush IVF 10 ml PRN PRN Administration Flushing Sodium Chloride 500 ml 01/28/18 16:07 02/04/18 16:00 Normal Saline IV 500 ml PRN PRN Administration Discontinued Medications Generic Name Dose Route Start Last Admin Trade Name Freq PRN Reason Stop Dose Admin Acetaminophen 1,000 mg 01/26/18 15:45 01/26/18 15:54 Tylenol PO 1,000 mg O MANAN Administration Albumin Human 25 g 02/02/18 20:11 02/02/18 21:57 Albumin Human 25gm IV 02/02/18 20:12 25 g O ONE Administration Albumin Human 25 g 02/03/18 07:00 02/03/18 06:34 Albumin Human 25gm IV 02/03/18 07:01 25 g O ONE Administration Furosemide 20 mg 01/28/18 11:33 01/28/18 11:50 Lasix 20 Mg/2 Ml IVP 01/28/18 11:34 20 mg ONCE ONE Administration Furosemide 20 mg 01/29/18 16:05 01/29/18 16:37 Lasix 20 Mg/2 Ml IVP 01/29/18 16:06 20 mg ONCE ONE Administration Furosemide 40 mg 01/30/18 09:47 01/30/18 10:40 Lasix 40 Mg/4 Ml IVP 01/30/18 09:48 40 mg O ONE Administration Furosemide 40 mg 01/31/18 18:00 01/31/18 21:27 Lasix 40 Mg/4 Ml IVP 01/31/18 18:01 40 mg O ONE Administration Furosemide 40 mg 02/01/18 07:30 02/01/18 13:57 Lasix 40 Mg/4 Ml IVP 02/01/18 07:31 40 mg O ONE Administration Furosemide 40 mg 02/02/18 20:15 02/02/18 23:37 Lasix 40 Mg/4 Ml IVP 02/02/18 20:16 40 mg O ONE Administration Furosemide 40 mg 02/03/18 09:00 02/03/18 08:24 Lasix 40 Mg/4 Ml IVP 02/03/18 09:01 40 mg O ONE Administration Furosemide 40 mg 02/03/18 18:30 02/03/18 18:00 Lasix 40 Mg/4 Ml IVP 02/03/18 18:31 40 mg O ONE Administration Ceftriaxone Sodium 1 gm/ 100 mls @ 200 mls/hr 01/26/18 15:50 01/26/18 16:30 Sodium Chloride IV 01/26/18 16:19 Infused O ONE Infusion Sodium Chloride 500 mls @ 999.9 mls/hr 01/26/18 16:04 Normal Saline IV 01/26/18 16:33 .Q30M ONE Azithromycin 500 mg/ Sodium 250 mls @ 167 mls/hr 01/26/18 16:21 01/26/18 18: 13 Chloride IV 01/26/18 17:50 Infused O ONE Infusion Azithromycin 500 mg/ Sodium 250 mls @ 167 mls/hr 01/27/18 16:00 01/29/18 18: 15 Chloride IV Infused Q24H MANAN Infusion Potassium Chloride/Sodium Chloride 1,000 mls @ 100 mls/hr 01/26/18 17:37 05/07 10:48 Ns With Kcl 20 Meq Premix IV Infused .Q10H MANAN Infusion Sodium Chloride 500 mls @ 999.9 mls/hr 01/26/18 18:32 01/26/18 19:04 Normal Saline IV 01/26/18 19:01 Infused .Q30M ONE Infusion Sodium Chloride 1,000 mls @ 999.9 mls/hr 01/26/18 19:43 01/26/18 21:00 Normal Saline IV 01/26/18 20:42 Infused .Q1H ONE Infusion Potassium Chloride/Sodium Chloride 1,000 mls @ 50 mls/hr 01/27/18 10:18 01/28 11:50 1/2 Ns With Kcl 20meq Premix IV Infused .Q20H MANAN Infusion Albumin Human 25 g/ IV 100 mls @ 50 mls/hr 01/31/18 17:56 01/31/18 20:30 Solution IV 01/31/18 19:55 Infused O ONE Infusion Albumin Human 100 mls @ 50 mls/hr 02/01/18 10:00 02/01/18 13:23 Albumin Human 25gm IV 02/01/18 11:59 Infused O ONE Infusion Albumin Human 25 g/ Sodium 100 mls @ 100 mls/hr 02/03/18 15:30 02/03/18 17:31 Chloride IV 02/03/18 16:29 Not Given O ONE Albumin Human 50 mls @ 50 mls/hr 02/03/18 16:00 02/03/18 18:18 Albumin Human 12.5gm IV 02/03/18 17:59 Infused Q1H MANAN Infusion Magnesium Hydroxide 30 ml 01/26/18 17:37 01/29/18 17:53 Mom PO 30 ml DAILY PRN Administration Constipation Methylprednisolone Sodium Succinate 125 mg 01/26/18 17:37 01/27/18 08:11 Solu-Medrol IVP 125 mg Q6HR MANAN Administration Methylprednisolone Sodium Succinate 62.5 mg 01/27/18 15:00 01/31/18 21:28 Solu-Medrol IVP 01/31/18 21:00 62.5 mg Q6HR MANAN Administration Pantoprazole Sodium 40 mg 01/27/18 06:30 Protonix Tab PO ACB MANAN Pharmacy Consult 1 each 01/26/18 17:57 Pharmacy Consult - Fall Risk 01/26/18 17:58 ONE TIME ONE Pharmacy Consult 1 each 02/04/18 19:04 Pharmacy Consult - Fall Risk 02/04/18 19:05 ONE TIME ONE Pneumococcal 7-Valent Conj Vacc 0.5 ml 01/27/18 13:15 01/27/18 13:28 Prevnar 13 IM 01/27/18 13:16 0.5 ml .ONCE ONE Administration Prednisone 30 mg 02/01/18 08:00 02/02/18 08:37 Deltasone 10 Mg PO 30 mg WB MANAN Administration Prednisone 20 mg 02/03/18 08:00 02/05/18 09:55 Deltasone 10 Mg PO 20 mg WB MANAN Administration Sodium Phosphate 500 mg 02/03/18 08:00 02/04/18 17:52 K-Phos *Neutral* Tablet PO Not Given WM MANAN - Constitutional no acute distress, cachectic - Routine HEENT Exam Eye: Absent: conjunctival icterus - Routine Neck Exam Present: supple - Routine Respiratory Exam Present: crackles - Routine Cardiovascular Exam Present: RRR - Urinary Catheter Management Urethral Cath placed during this visit: yes Insertion date: 01/26/18 Results - Laboratory Findings Laboratory: Laboratory Results - last 48 hr 02/03/18 02/04/18 02/04/18 20:08 04:38 04:38 WBC 8.0 RBC 2.51 L Hgb 7.6 L Hct 24.9 L MCV 99.2 MCH 30.3 MCHC 30.5 L RDW Std Deviation 48.3 Plt Count 125 L MPV 10.5 Neutrophils % (Manual) 93.0 H Band Neutrophils % 2.0 Lymphocytes % (Manual) 3.0 L Monocytes % (Manual) 2.0 Neutrophils # (Manual) 7.4 Band Neutrophils # 0.2 Lymphocytes # (Manual) 0.2 L Monocytes # (Manual) 0.2 Nucleated RBCs 1 Poikilocytosis 3+ Anisocytosis 1+ Ovalocytes 2+ Nathaniel Cells 1+ Acanthocytes (Spur) 1+ Schistocytes 1+ RBC Morph Comment Abnormal Turbidity < 20 Sodium 141 Potassium 4.0 Chloride 99 Carbon Dioxide 36 H Anion Gap 6 BUN 29.0 H Creatinine 0.6 L GFR Calculation 128 BUN/Creatinine Ratio 48 H Glucose 148 H Glucometer 263 Calculated Osmolality 280 Calcium 7.2 L Phosphorus 4.4 Icterus Index < 2 Albumin 2.4 L Specimen Hemolysis < 15 Stool Occult Blood 02/04/18 02/04/18 02/04/18 06:44 10:40 14:01 WBC RBC Hgb Hct MCV MCH MCHC RDW Std Deviation Plt Count MPV Neutrophils % (Manual) Band Neutrophils % Lymphocytes % (Manual) Monocytes % (Manual) Neutrophils # (Manual) Band Neutrophils # Lymphocytes # (Manual) Monocytes # (Manual) Nucleated RBCs Poikilocytosis Anisocytosis Ovalocytes Nathaniel Cells Acanthocytes (Spur) Schistocytes RBC Morph Comment Turbidity Sodium Potassium Chloride Carbon Dioxide Anion Gap BUN Creatinine GFR Calculation BUN/Creatinine Ratio Glucose Glucometer 138 147 198 Calculated Osmolality Calcium Phosphorus Icterus Index Albumin Specimen Hemolysis Stool Occult Blood 02/04/18 02/05/18 02/05/18 22:28 00:37 04:22 WBC 9.1 RBC 2.64 L Hgb 8.1 L Hct 26.3 L MCV 99.6 MCH 30.7 MCHC 30.8 L RDW Std Deviation 48.6 Plt Count 145 MPV 10.0 Neutrophils % (Manual) 96.0 H Band Neutrophils % 1.0 Lymphocytes % (Manual) 2.0 L Monocytes % (Manual) 1.0 Neutrophils # (Manual) 8.7 H Band Neutrophils # 0.1 Lymphocytes # (Manual) 0.2 L Monocytes # (Manual) 0.1 Nucleated RBCs Poikilocytosis 2+ Anisocytosis 1+ Ovalocytes 2+ Nathaniel Cells 1+ Acanthocytes (Spur) 1+ Schistocytes 1+ RBC Morph Comment Abnormal Turbidity Sodium Potassium Chloride Carbon Dioxide Anion Gap BUN Creatinine GFR Calculation BUN/Creatinine Ratio Glucose Glucometer 169 Calculated Osmolality Calcium Phosphorus Icterus Index Albumin Specimen Hemolysis Stool Occult Blood Positive A 02/05/18 02/05/18 02/05/18 04:22 06:02 10:56 WBC RBC Hgb Hct MCV MCH MCHC RDW Std Deviation Plt Count MPV Neutrophils % (Manual) Band Neutrophils % Lymphocytes % (Manual) Monocytes % (Manual) Neutrophils # (Manual) Band Neutrophils # Lymphocytes # (Manual) Monocytes # (Manual) Nucleated RBCs Poikilocytosis Anisocytosis Ovalocytes Nathaniel Cells Acanthocytes (Spur) Schistocytes RBC Morph Comment Turbidity < 20 Sodium 140 Potassium 3.9 Chloride 99 Carbon Dioxide 37 H Anion Gap 4 L BUN 25.0 H Creatinine 0.4 L D GFR Calculation 204 BUN/Creatinine Ratio 63 H Glucose 138 H Glucometer 141 113 Calculated Osmolality 275 Calcium 7.2 L Phosphorus 3.7 Icterus Index < 2 Albumin 2.3 L Specimen Hemolysis < 15 Stool Occult Blood 02/05/18 15:10 WBC RBC Hgb Hct MCV MCH MCHC RDW Std Deviation Plt Count MPV Neutrophils % (Manual) Band Neutrophils % Lymphocytes % (Manual) Monocytes % (Manual) Neutrophils # (Manual) Band Neutrophils # Lymphocytes # (Manual) Monocytes # (Manual) Nucleated RBCs Poikilocytosis Anisocytosis Ovalocytes [place] Cells Acanthocytes (Spur) Schistocytes RBC Morph Comment Turbidity Sodium Potassium Chloride Carbon Dioxide Anion Gap BUN Creatinine GFR Calculation BUN/Creatinine Ratio Glucose Glucometer 161 Calculated Osmolality Calcium Phosphorus Icterus Index Albumin Specimen Hemolysis Stool Occult Blood Assessment and Plan (1) Acute and chronic respiratory failure with hypoxia Status: Acute Assessment and plan: continue O2 by NC (currently 1-2 lpm at rest) to keep sat >90%. respiratory status is stable. 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 He is currently being managed on Cellcept and Predisone. cut prednisone to 10 mg daily at this time and will continue to hold Cellcept. It is unclear whether the Cellcept is adding a great deal to his care at this time and we will likely be stopping Cellcept and monitoring closely. Seems to be improving and may be able to discharge soon with outpatient followup once his GI blood loss is addressed. Plan on discontinuing Cellcept on discharge Current Visit: Yes (3) Pneumonia Status: Acute Assessment and plan: much improved after empiric antibiotics Current Visit: Yes - Time Spent With Patient Total time spent is greater than 50% in coordination of care (as documented) at patient's floor/unit and/or counseling patient: less than 15 minutes
--- NOTE | 2018-02-05 18:35 | Consultation ---
DATE OF CONSULTATION 02/05/2018 FINDINGS Mr. Negron was seen this evening in rounds as a result of his history for marked anemia upon laboratory evaluation in conjunction with a Hemoccult- positive stool. I did not recognize Mr. Negron for he has deteriorated significantly since I had seen him just three months ago. I do remember seeing Mr. Negron about three months ago as a result of his history for dysphagia. I do know his daughter whom I have spoken with in the past. Mr. Negron had been working up until just recently when I had met him in October. His daughter at that time had told me that his overall health had begun to decline significantly. Mr. Negron was resting upon entering his room. He did awaken easily. He was conversant. He did inform me that his overall health has been deteriorating significantly. He denied any element of abdominal pain. Apparently the patient's pulmonary status has significantly become worse. He states that he was having a hard time breathing recently and presented to the emergency room for further evaluation. The patient was found to have evidence for sepsis and he was subsequently added to our facility for further care. Upon questioning the patient he denies any history for melena or hematochezia. As stated above, he denied any element of abdominal pain and was therefore without specific aggravating or alleviating symptomatology. PAST MEDICAL HISTORY, PAST SURGICAL HISTORY, MEDICATIONS, ALLERGIES, SOCIAL HISTORY, FAMILY HISTORY, REVIEW OF SYSTEMS Performed by my nurse practitioner, Vadim Sorenson APRN. PHYSICAL EXAM GENERAL: Mr. Negron is a very frail, elderly 87-year-old gentleman who did not appear to be in acute distress this evening. VITAL SIGNS: Temperature 95.3, pulse 86, respirations 10, blood pressure 125/65 , SAO2 97% on 1 L/nasal cannula. HEENT: Normocephalic. Pupils are equally round and react to light and accommodation. CHEST: Auscultation of the chest did reveal decreased breath sounds bilaterally. I was able to auscultate some rales noted bilaterally. HEART: Rate and rhythm. I did not appreciate murmur. ABDOMEN: Visualization of the abdomen reveals it to be quite scaphoid in nature. Palpation of the abdomen reveals it to be soft and completely nontender. There is no evidence for guarding or rebound. NEURO: Cranial nerves II-XII grossly intact. Patient is without focal motor or sensory deficits. EXTREMITIES: Without clubbing, cyanosis, or edema. LABORATORY/RADIOGRAPHIC EVALUATION The patient has been anemic since admission. His hemoglobin was 10.6 on admission. He was likely dehydrated at that time. Following fluids his hemoglobin did drift down into the 8s. His hemoglobin has remained stable and today was 8.1. Yesterday's hemoglobin was 7.6. Upon reviewing his prior admission his hemoglobin was in the 9 range in October. White count is normal at 9.1. Platelet count is normal at 145,000. Does have a slight left shift with 96% neutrophils. BMP obtained and found to be stable. BUN and creatinine have improved since admission. BUN remains slightly elevated at 25.0. Creatinine is normal at 0.4. I do see that he had a Hemoccult-positive stool today. I do see that on blood cultures he had positive E-coli on January 26. Repeat blood cultures on the did not reveal any evidence for growth. I reviewed a UA from January 26. He did have microscopic hematuria with 20-30 RBCs. ASSESSMENT 87-year-old gentleman who has had significant functional and clinical decline over the last several months. The patient presented with sepsis and increasing shortness of breath. Bacteremia with E-coli. History for interstitial lung disease, severe malnutrition, finding of anemia upon laboratory evaluation in conjunction with heme-positive stool. PLAN I did review the patient's chart including my prior consult note and EGD report from October of this year. 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 This did not appear worrisome in nature. He was found have a hiatal hernia in conjunction with some narrowing of the distal esophagus. No evidence for peptic ulcer disease or underlying neoplastic process was noted upon upper endoscopy. At this time I agree with the current management of the patient in treating him empirically for peptic ulcer disease. He is on Protonix 40 mg on a b.i.d. basis. Given his significant decline I do not feel entailed to proceed with further evaluation of his anemia and heme-positive stool. I did discuss with the patient that one could perhaps make an argument for proceeding with colonoscopy although I do not feel this would be in his best interest. The patient also concurred that he would not want any type of invasive procedures undertaken at this time and would prefer not to have colonoscopy. I would simply continue with empiric treatment for peptic ulcer disease and transfuse the patient if he continues on a downward trend. If the patient would begin to develop paolo rectal bleeding or significant progressive anemia requiring multiple transfusions, may reconsider at that time proceeding with endoscopic evaluation. I will be leaving town tomorrow. I do not plan on checking this patient out to any of my surgical colleagues at this juncture in time. If further general surgical care is needed please contact general surgeon on-call. NEFTALI
[2018-02-05] MEDS: INSULIN REGULAR, HUMAN 100 UNIT/ML INJECTION SQ PRN ×2 (18:39→20:28)
[2018-02-05] MEDS: ATORVASTATIN 20 MG TABLET PO SCH (20:24)
[2018-02-05] MEDS: ATENOLOL 25 MG TABLET PO SCH (20:25)
[2018-02-05] MEDS: LIDOCAINE REMOVAL TOP SCH (20:25)
[2018-02-05] MEDS: ACETAMINOPHEN 325 MG TABLET PO PRN (21:37)
[2018-02-06] MEDS: HYDROCODONE/APAP 7.5 MG/325 MG TABLET PO PRN ×3 (00:22→20:54)
[2018-02-06] MEDS: PANTOPRAZOLE 40 MG TABLET PO SCH ×2 (05:53→16:08)
[2018-02-06] MEDS: BUDESONIDE INH.SOLN 0.5mg/2ml NEB AEROSOL SCH ×2 (06:55→19:59)
[2018-02-06] MEDS: ALBUTEROL/IPRATROPIUM 2.5mg-0.5mg/3ml NEB AEROSOL SCH ×4 (06:56→19:59)
[2018-02-06] MEDS: POLYETHYL GLYCOL 3350 17gm PACKET PO SCH (08:55)
[2018-02-06] MEDS: PredniSONE 10 MG TABLET PO SCH (08:55)
[2018-02-06] MEDS: CALCIUM 600 + VIT D 400 TABLET PO SCH ×2 (08:55→20:54)
[2018-02-06] MEDS: GUAIFENESIN/D-METHORPHAN 600mg/30mg TABLET PO SCH ×2 (08:55→20:54)
[2018-02-06] MEDS: MULTI-VITAMIN + MINERAL TABLET PO SCH (08:55)
[2018-02-06] MEDS: LIDOCAINE 5% PATCH TOP SCH (08:56)
[2018-02-06] MEDS: SALINE FLUSH 10ml SYRINGE IVF PRN (08:57)
--- NOTE | 2018-02-06 13:57 | Progress Note ---
- Date 02/06/18 Subjective: Evita was seen during a late lunch. He states overall he is doing better. He denies feeling short of breath or having any chest pain. He states his back pain is under good control. He reports that he has been eating better and denies any abdominal pain or nausea. He also feels like his leg swelling has been improving. Objective Vital signs: Temperature 97 F 02/06/18 07:49 Pulse Rate 75 02/06/18 07:49 Respiratory Rate 16 02/06/18 10:22 Blood Pressure 132/64 02/06/18 07:49 Pulse Oximetry 100 02/06/18 10:22 Height/Weight/BMI: Height 1.8 m Weight 62.2 kg Body Mass Index 19.7 - Constitutional Present: no acute distress, well nourished, well developed, thin - Routine HEENT Exam Head: Present: normocephalic Eye: Present: PERRL. Absent: conjunctival icterus, scleral injection ENT: Present: mucous membranes moist - Routine Respiratory Exam Present: decreased breath sounds, crackles - Routine Cardiovascular Exam Present: RRR, S1, S2 - Routine Abdominal Exam Present: soft, normoactive bowel sounds, non distended, non tender - Routine Extremities Exam Present: edema (trace edema bilateral lower extremities) - Routine Skin Exam Present: intact, dry, pallor (bilateral lower extremities), warm - Routine Neurological Exam Present: alert, oriented X3, CN II-XII intact, moving all extremities, vision grossly intact, hearing grossly intact, normal speech. Absent: sensory deficit , motor deficit, altered mental status, facial asymmetry - Routine Psychiatric Exam Present: normal affect, normal thought process, cooperative Results - Labs CBC & Chem 7: 02/06/18 04:02 02/06/18 04:02 Microbiology Results: Microbiology 01/28/18 04:57 Peripheral/Iv Start Blood Culture - Final No Growth After 5 Days 01/28/18 04:51 Peripheral/Iv Start Blood Culture - Final No Growth After 5 Days 01/26/18 15:08 Peripheral/Iv Start Gram Stain - Final 01/26/18 15:08 Peripheral/Iv Start Blood Culture - Final Escherichia coli 01/26/18 15:02 Peripheral/Iv Start Gram Stain - Final 01/26/18 15:02 Peripheral/Iv Start Blood Culture - Final Escherichia coli Assessment and Plan (1) Acute and chronic respiratory failure with hypoxia Current visit: Yes Status: Acute Assessment and Plan: Assessment Sepsis syndrome manifested by temp elevation to 102.5, tachycardia and tachypnea - secondary to E. coli Bacteremia - resolved Bacteremia with E coli, resolving Pneumonia Interstitial lung disease with worsening respiratory status. Chronic hypoxic respiratory failure - on home O2 at 2L Anemia, with positive stool occult blood. General surgery consulted. Severe malnutrition - Severe Protein Calorie malnutrition Hypoalbuminemia Functional decline Anorexia Hyperkalemia, resolved Gait instability/Gen debility, PT consulted LE edema - secondary to malnutrition Right medial buttock pressure ulcer, Stage III - (POA) Chronic anemia Vitamin D Deficiency Hypocalcemia Hypermagnesemia - resolved Hypophosphatemia - resolved CAD HTN HDL GERD/esophageal stricture - S/P dilatation 11/07/17 Dysphagia - improved post esophageal stricture BPH Osteoporosis Underweight with BMI 17.2 Hx compression fracture to back - chronic back pain Hx Sara filter placement in 2007 Plan Continue ceftriaxone 1 gm daily for E-Coli bacteremia through 02/11/18. Hemoglobin improved to 8.4. Dr. Black is recommending conservative treatment for PUD with Protonix. He has not recommending colonoscopy at this time, and the patient would prefer not to undergo a colonoscopy either. Aspirin remains on hold. Edema is improving, though he is up about 1.3 L of fluid. Renal function is stable. Diuretics remain on hold. Electrolytes have stabilized. Prednisone being tapered down, currently at 10 mg daily. He is on 2 L of oxygen , baseline. PT notes reviewed. He occasionally refused therapy; at times is unmotivated. He needs moderate to maximal assistance. DVT Prophylaxis: BRI [facility] Prophylaxis: Protonix Resuscitation Status: Full Code - Physician Narrative Physician: Mariaa Mercado Narrative: Date: 02/06/18 Time: 1343 I have independently interviewed and examined patient. Patient chart reviewed. Case discussed with my [employer]. Care plan developed with my supervision, agree with above. No reported chest pain, no subjective fever, no chills, no palpitations. Appetite has improved when compared to yesterday. Physical exam: AAO x 3, NAD PERRLA, EOMI S1 and S2 heard on auscultation, no murmurs Lungs clear to auscultation bilaterally, no wheezing, no crackles Abdomen soft, nontender, positive bowel sounds Trace edema bilateral lower extremities. Assessment: Escherichia coli UTI, anorexia, chronic anemia, history of hypertension, dyslipidemia, coronary artery disease, dysphagia, poor nutrition, osteoporosis Plan: Continue IV Rocephin. Continue Protonix for underlying peptic ulcer disease, no plans from general surgery standpoint for endoscopy. Continue prednisone 10 mg. Hospital Course Summary Disclaimer: The visit summary below is not to be considered part of the above Progress Note. Hospital Course: 01/26/18 Inpatient admission to [facility] for treatment of sepsis syndrome secondary to pulmonary source. Initiate ceftriaxone and azithromycin for pulmonary coverage. Will utilize neb treatments of DuoNeb QID and q 4prn along with budesonide BID. Start Solu-Medrol 125mg IV q 6 hours to decrease pulmonary inflammation. Consult with Dr Ayala for pulmonary evaluation and recommendations. IVF given via EMS. Will give bolus of 500cc and then continue NS with 20 KCl at 100 cc/hr. Recheck Lactate. Speech consult secondary to dysphagia. Continue Protonix BID. PT/OT consult to help improve strength and functional abilities. SCD for DVT prevention. Check TSH secondary to fatigue and functional decline. Check Prealbumin due to underweight. May continue home medications. Discussed code status with patient and his daughter - does have some ambivalence. Will have status full code. Care to return to Dr Doll at time of discharge from [facility]. 01/27/18 Continue ceftriaxone and azithromycin for pulmonary coverage. With positive Blood cultures, will repeat. Continue neb treatments of DuoNeb QID and q 4prn along with budesonide BID. Decrease Solu-Medrol to 62.5mg IV q 6 hours. Decrease IVF to 50cc/hr as oral drive starting to increase. PT/OT/Speech initiated to help improve functional status. 01/28/18 Continue ceftriaxone and azithromycin for pulmonary coverage. BS positive with E coli -sensitive to ceftriaxone. Repeat blood cultures drawn this morning. Discontinue IV fluids. Monitor oral intake. Nutritional supplements. Given lasix 20 mg IV x1. Presence of edema to all extremities. Weight up 6Kg from admission. Abraham was placed on 01/28/18. Continue neb treatments of DuoNeb QID and q 4prn along with budesonide BID. 01/29/18 Continue ceftriaxone 1 gm daily will cover E-Coli bacteremia- Recommendations Tx for 7-14 days. Continue azithromycin day 4/5 for pulmonary coverage. Can D/C after tomorrow. Asked nursing staff to place BRI hose to BLE for compression. Could consider scheduling diuretics. Continue neb treatments of DuoNeb QID and q 4prn along with budesonide BID. On baseline oxygen. 01/30/18 Discontinue Azithromycin as course is complete. Continue ceftriaxone 1 gm daily will cover E-Coli bacteremia- Will need tx --> . Continue with SCD/BRI hose to BLE to decrease edema and decrease risk for DVT. Re-Consult PT/OT- would like to get patient up and move. Ambulate with nursing QID. O2 at baseline at rest. Continues on scheduled Solu-Medrol. Add ISS to help sugars. Planning to SNU at [facility] once medically stable. 01/31/18 Continue ceftriaxone 1 gm daily will cover E-Coli bacteremia- Will need tx --> Decrease steroids to Prednisone 30 mg daily starting tomorrow. DC IV solu- medrol this evening Continue with bri hose to BLE for compression O2 at baseline at rest. Labs reviewed, Increase in K today. Will recheck tomorrow am. 02/01/18 Continue ceftriaxone 1 gm daily will cover E-Coli bacteremia through 02/11/18 K improved to 5.1. Calcium is low at 6.6 with an ionized calcium of only 1. Calcium was initiated. Question hypocalcemia contributing to his weakness. CO2 has been slightly trending up while gap is 4. ? association with electrolyte abnormalities versus IV diuresis. BGM have ranged 168-205. Thrombocytopenia improved to 100K today. Hgb down to 8.0 - iron studies pending. Continue Prednisone. Dietary consult ordered for tomorrow. 02/02/18 Continue ceftriaxone 1 gm daily will cover E-Coli bacteremia through 02/11/18. WBC up to 11.4. Afebrile. Hgb 8.0, iron 38, TIBC 155 -- IV iron ordered. Platelets up to 109. K 5.1. Phos 2.2. Vit D level was markedly low <12.5 -- start ergocalciferol 50, 000 U per week x 8 weeks (Per UpToDate, with prolonged, severe vit D deficiency , there is reduced absorption of calcium and phosphorous --> hypocalcemia and secondary hyperparathyroidism --> phosphaturia bone demineralization) KUB personally reviewed - nonspecific gas pattern Decrease prednisone to 20 mg starting tomorrow - home dose per ambulatory med list Seen by wound RN for stage III pressure injury to Left Buttock and Left Medial Buttock: recommends silver + foam dressing 02/03/18 Continue ceftriaxone 1 gm daily will cover E-Coli bacteremia through 02/11/18. Continue with K-Phos oral supplementation-, phosphorus this morning 2.1, magnesium 2.4. Continue with vitamin D supplementation Will give an additional dose of IV albumin 25 grams 1. Later this afternoon, followed by Lasix 40 milligrams IV 1. Patient also received this regimen this morning Overall blood sugars have been well controlled today. Prednisone taper Wound care as per the wound team as patient does have multiple buttock and medial back wounds Cont PT/OT. 02/04/18 Continue ceftriaxone 1 gm daily will cover E-Coli bacteremia through 02/11/18. Discontinue phosphorus supplementation. Phosphorus is normal Encourage ambulation. Oral intake is improving. We'll hold off on diuresis today. Recheck weight, edema, and renal panel tomorrow. We'll check Hemoccult regarding anemia, hemoglobin is trending down. Recheck CBC tomorrow. Hold aspirin for now. He does not appear to have iron deficiency on iron studies. Continue prednisone 20 mg daily. We'll need to discuss with Dr. Ayala whether this is his usual home dose. 02/05/18 Continue ceftriaxone 1 gm daily will cover E-Coli bacteremia through 02/11/18. Positive stool occult blood, hemoglobin 8.1 today when compared to 7.6 yesterday. Aspirin held for today. Case discussed with general surgery, Dr. Black over the phone and consult placed. We'll hold off on diuresis today. Recheck weight, urine output, pedal edema, and renal panel tomorrow. We'll check Hemoccult regarding anemia, hemoglobin is trending down. Recheck CBC tomorrow. Hold aspirin for now. He does not appear to have iron deficiency on iron studies. Continue prednisone 20 mg daily. P 02/06/18 Continue ceftriaxone 1 gm daily for E-Coli bacteremia through 02/11/18. Hemoglobin improved to 8.4. Dr. Black is recommending conservative treatment for PUD with Protonix. He has not recommending colonoscopy at this time, and the patient would prefer not to undergo a colonoscopy either. Aspirin remains on hold. Edema is improving, though he is up about 1.3 L of fluid. Renal function is stable. Diuretics remain on hold. Electrolytes have stabilized. Prednisone being tapered down, currently at 10 mg daily. He is on 2 L of oxygen , baseline. PT notes reviewed. He occasionally refused therapy; at times is unmotivated. He needs moderate to maximal assistance.
[2018-02-06] MEDS: CEFTRIAXONE 1 G in D5W 100 ML IV SCH (16:08)
[2018-02-06] MEDS: INSULIN REGULAR, HUMAN 100 UNIT/ML INJECTION SQ PRN (16:08)
[2018-02-06] MEDS: ATORVASTATIN 20 MG TABLET PO SCH (20:54)
[2018-02-06] MEDS: LIDOCAINE REMOVAL TOP SCH (20:56)
[2018-02-06] MEDS: ATENOLOL 25 MG TABLET PO SCH (20:56)
[2018-02-07] MEDS: HYDROCODONE/APAP 7.5 MG/325 MG TABLET PO PRN ×2 (02:56→13:44)
[2018-02-07] MEDS: PANTOPRAZOLE 40 MG TABLET PO SCH ×2 (06:11→17:29)
[2018-02-07] MEDS: ALBUTEROL/IPRATROPIUM 2.5mg-0.5mg/3ml NEB AEROSOL SCH ×4 (07:20→18:49)
[2018-02-07] MEDS: BUDESONIDE INH.SOLN 0.5mg/2ml NEB AEROSOL SCH ×2 (07:20→18:49)
[2018-02-07] MEDS: POLYETHYL GLYCOL 3350 17gm PACKET PO SCH (08:46)
[2018-02-07] MEDS: PredniSONE 10 MG TABLET PO SCH (08:46)
[2018-02-07] MEDS: LIDOCAINE 5% PATCH TOP SCH (08:46)
[2018-02-07] MEDS: GUAIFENESIN/D-METHORPHAN 600mg/30mg TABLET PO SCH ×2 (08:46→21:13)
[2018-02-07] MEDS: CALCIUM 600 + VIT D 400 TABLET PO SCH ×2 (08:46→21:13)
[2018-02-07] MEDS: SALINE FLUSH 10ml SYRINGE IVF PRN (08:46)
[2018-02-07] MEDS: MULTI-VITAMIN + MINERAL TABLET PO SCH (08:46)
[2018-02-07] MEDS: BISACODYL 10 MG SUPPOSITORY RECTALLY PRN (13:49)
[2018-02-07] MEDS: CEFTRIAXONE 1 G in D5W 100 ML IV SCH (15:38)
--- NOTE | 2018-02-07 18:04 | Progress Note ---
- Date 02/07/18 Subjective: Patient resting in bed at the time of interview. As per nursing staff, patient has had poor oral intake. Urine output also noted to be diminished at 2030 mL per hour. Otherwise, vital signs are stable. Hemoglobin 8.3. No leukocytosis. Patient has positive 450 mL fluid balance. As per case management, Mrs. Knox, once patient medically stabilized, tentative plan for discharge to [facility] for [facility] facility. Objective Vital signs: Temperature 96.6 F L 02/07/18 15:13 Pulse Rate 72 02/07/18 15:13 Respiratory Rate 16 02/07/18 15:13 Blood Pressure 128/65 02/07/18 15:13 Pulse Oximetry 100 02/07/18 15:13 Height/Weight/BMI: Height 1.8 m Weight 62.2 kg Body Mass Index 19.7 - Additional findings Additional findings: General: Alert, awake, oriented to self, place and person. Patient appears malnourished. Not in acute distress. Head: Pupils equal, round, reactive to light and accommodation. Extraocular movements intact. Neck: No elevation in JVP. No pharyngeal erythema noted. Chest: The patient does not use accessory muscles for breathing. Lungs: Breath sounds audible on auscultation bilateral lung lua. Faint crackles heard bilaterally lung bases. No wheezing, no rhonchi, no crepitations. No pleural rub. CVS: S1, S2 heard on auscultation. Normal rate and rhythm. No murmur, no S3/S4 gallops. Abdomen: Soft, nontender, no distention. Bowel sounds appreciated on auscultation. : No flank tenderness, no suprapubic distention or tenderness. Skin: No rashes, no induration, no erythema. Capillary refill less than 4 seconds. Extremities: Trace pedal edema bilateral lower extremities. No calf tenderness bilaterally. Palpable dorsalis pedis and posterior tibial pulses bilateral lower extremities. Results - Labs CBC & Chem 7: 02/07/18 04:42 02/07/18 04:42 Microbiology Results: Microbiology 01/28/18 04:57 Peripheral/Iv Start Blood Culture - Final No Growth After 5 Days 01/28/18 04:51 Peripheral/Iv Start Blood Culture - Final No Growth After 5 Days 01/26/18 15:08 Peripheral/Iv Start Gram Stain - Final 01/26/18 15:08 Peripheral/Iv Start Blood Culture - Final Escherichia coli 01/26/18 15:02 Peripheral/Iv Start Gram Stain - Final 01/26/18 15:02 Peripheral/Iv Start Blood Culture - Final Escherichia coli Assessment and Plan (1) Acute and chronic respiratory failure with hypoxia Current visit: Yes Status: Acute Assessment and Plan: Assessment Sepsis syndrome manifested by temp elevation to 102.5, tachycardia and tachypnea - secondary to E. coli Bacteremia - resolved Bacteremia with E coli, resolving Pneumonia Interstitial lung disease with worsening respiratory status. Chronic hypoxic respiratory failure - on home O2 at 2L Anemia, with positive stool occult blood. General surgery consulted. Severe malnutrition - Severe Protein Calorie malnutrition Hypoalbuminemia Functional decline Anorexia Hyperkalemia, resolved Gait instability/Gen debility, PT consulted LE edema - secondary to malnutrition Right medial buttock pressure ulcer, Stage III - (POA) Chronic anemia Vitamin D Deficiency Hypocalcemia Hypermagnesemia - resolved Hypophosphatemia - resolved CAD HTN HDL GERD/esophageal stricture - S/P dilatation 11/07/17 Dysphagia - improved post esophageal stricture BPH Osteoporosis Underweight with BMI 17.2 Hx compression fracture to back - chronic back pain Hx Sara filter placement in 2007 Plan Continue ceftriaxone 1 gm daily for E-Coli bacteremia through 02/11/18. Hemoglobin improved to 8.3. Dr. Black is recommending conservative treatment for PUD with Protonix. He has not recommending colonoscopy at this time, and the patient would prefer not to undergo a colonoscopy either. Aspirin remains on hold. Edema is improving, patient has positive 500 mL of fluid. Renal function is stable. Cautious diuresis with Lasix 20 mg by mouth daily. Prednisone being tapered down, currently at 10 mg daily. He is on 2 L of oxygen , baseline. Patient encouraged to continue PT participation. - Time spent with patient Time with patient PN: 25 minutes - Physician Narrative Narrative: Date: 02/07/18 Time: 1801 Hospital Course Summary Disclaimer: The visit summary below is not to be considered part of the above Progress Note. Hospital Course: 01/26/18 Inpatient admission to [facility] for treatment of sepsis syndrome secondary to pulmonary source. Initiate ceftriaxone and azithromycin for pulmonary coverage. Will utilize neb treatments of DuoNeb QID and q 4prn along with budesonide BID. Start Solu-Medrol 125mg IV q 6 hours to decrease pulmonary inflammation. Consult with Dr Ayala for pulmonary evaluation and recommendations. IVF given via EMS. Will give bolus of 500cc and then continue NS with 20 KCl at 100 cc/hr. Recheck Lactate. Speech consult secondary to dysphagia. Continue Protonix BID. PT/OT consult to help improve strength and functional abilities. SCD for DVT prevention. Check TSH secondary to fatigue and functional decline. Check Prealbumin due to underweight. May continue home medications. Discussed code status with patient and his daughter - does have some ambivalence. Will have status full code. Care to return to Dr Doll at time of discharge from [facility]. 01/27/18 Continue ceftriaxone and azithromycin for pulmonary coverage. With positive Blood cultures, will repeat. Continue neb treatments of DuoNeb QID and q 4prn along with budesonide BID. Decrease Solu-Medrol to 62.5mg IV q 6 hours. Decrease IVF to 50cc/hr as oral drive starting to increase. PT/OT/Speech initiated to help improve functional status. 01/28/18 Continue ceftriaxone and azithromycin for pulmonary coverage. BS positive with E coli -sensitive to ceftriaxone. Repeat blood cultures drawn this morning. Discontinue IV fluids. Monitor oral intake. Nutritional supplements. Given lasix 20 mg IV x1. Presence of edema to all extremities. Weight up 6Kg from admission. Abraham was placed on 01/28/18. Continue neb treatments of DuoNeb QID and q 4prn along with budesonide BID. 01/29/18 Continue ceftriaxone 1 gm daily will cover E-Coli bacteremia- Recommendations Tx for 7-14 days. Continue azithromycin day 4/5 for pulmonary coverage. Can D/C after tomorrow. Asked nursing staff to place SAGAR hose to BLE for compression. Could consider scheduling diuretics. Continue neb treatments of DuoNeb QID and q 4prn along with budesonide BID. On baseline oxygen. 01/30/18 Discontinue Azithromycin as course is complete. Continue ceftriaxone 1 gm daily will cover E-Coli bacteremia- Will need tx --> . Continue with SCD/SAGAR hose to BLE to decrease edema and decrease risk for DVT. Re-Consult PT/OT- would like to get patient up and move. Ambulate with nursing QID. O2 at baseline at rest. Continues on scheduled Solu-Medrol. Add ISS to help sugars. Planning to SNU at [facility] once medically stable. 01/31/18 Continue ceftriaxone 1 gm daily will cover E-Coli bacteremia- Will need tx --> Decrease steroids to Prednisone 30 mg daily starting tomorrow. DC IV solu- medrol this evening Continue with sagar hose to BLE for compression O2 at baseline at rest. Labs reviewed, Increase in K today. Will recheck tomorrow am. 02/01/18 Continue ceftriaxone 1 gm daily will cover E-Coli bacteremia through 02/11/18 K improved to 5.1. Calcium is low at 6.6 with an ionized calcium of only 1. Calcium was initiated. Question hypocalcemia contributing to his weakness. CO2 has been slightly trending up while gap is 4. ? association with electrolyte abnormalities versus IV diuresis. BGM have ranged 168-205. Thrombocytopenia improved to 100K today. Hgb down to 8.0 - iron studies pending. Continue Prednisone. Dietary consult ordered for tomorrow. 02/02/18 Continue ceftriaxone 1 gm daily will cover E-Coli bacteremia through 02/11/18. WBC up to 11.4. Afebrile. Hgb 8.0, iron 38, TIBC 155 -- IV iron ordered. Platelets up to 109. K 5.1. Phos 2.2. Vit D level was markedly low <12.5 -- start ergocalciferol 50, 000 U per week x 8 weeks (Per UpToDate, with prolonged, severe vit D deficiency , there is reduced absorption of calcium and phosphorous --> hypocalcemia and secondary hyperparathyroidism --> phosphaturia bone demineralization) KUB personally reviewed - nonspecific gas pattern Decrease prednisone to 20 mg starting tomorrow - home dose per ambulatory med list Seen by wound RN for stage III pressure injury to Left Buttock and Left Medial Buttock: recommends silver + foam dressing 02/03/18 Continue ceftriaxone 1 gm daily will cover E-Coli bacteremia through 02/11/18. Continue with K-Phos oral supplementation-, phosphorus this morning 2.1, magnesium 2.4. Continue with vitamin D supplementation Will give an additional dose of IV albumin 25 grams 1. Later this afternoon, followed by Lasix 40 milligrams IV 1. Patient also received this regimen this morning Overall blood sugars have been well controlled today. Prednisone taper Wound care as per the wound team as patient does have multiple buttock and medial back wounds Cont PT/OT. 07/18/18 Continue ceftriaxone 1 gm daily will cover E-Coli bacteremia through 02/11/18. Discontinue phosphorus supplementation. Phosphorus is normal Encourage ambulation. Oral intake is improving. We'll hold off on diuresis today. Recheck weight, edema, and renal panel tomorrow. We'll check Hemoccult regarding anemia, hemoglobin is trending down. Recheck CBC tomorrow. Hold aspirin for now. He does not appear to have iron deficiency on iron studies. Continue prednisone 20 mg daily. We'll need to discuss with Dr. Ayala whether this is his usual home dose. 02/05/18 Continue ceftriaxone 1 gm daily will cover E-Coli bacteremia through 02/11/18. Positive stool occult blood, hemoglobin 8.1 today when compared to 7.6 yesterday. Aspirin held for today. Case discussed with general surgery, Dr. Black over the phone and consult placed. We'll hold off on diuresis today. Recheck weight, urine output, pedal edema, and renal panel tomorrow. We'll check Hemoccult regarding anemia, hemoglobin is trending down. Recheck CBC tomorrow. Hold aspirin for now. He does not appear to have iron deficiency on iron studies. Continue prednisone 20 mg daily. P 02/06/18 Continue ceftriaxone 1 gm daily for E-Coli bacteremia through 02/11/18. Hemoglobin improved to 8.4. Dr. Black is recommending conservative treatment for PUD with Protonix. He has not recommending colonoscopy at this time, and the patient would prefer not to undergo a colonoscopy either. Aspirin remains on hold. Edema is improving, though he is up about 1.3 L of fluid. Renal function is stable. Diuretics remain on hold. Electrolytes have stabilized. Prednisone being tapered down, currently at 10 mg daily. He is on 2 L of oxygen , baseline. PT notes reviewed. He occasionally refused therapy; at times is unmotivated. He needs moderate to maximal assistance. 02/07/2018 Continue ceftriaxone 1 gm daily for E-Coli bacteremia through 02/11/18. Hemoglobin improved to 8.3. Dr. Black is recommending conservative treatment for PUD with Protonix. He has not recommending colonoscopy at this time, and the patient would prefer not to undergo a colonoscopy either. Aspirin remains on hold. Edema is improving, patient has positive 500 mL of fluid. Renal function is stable. Cautious diuresis with Lasix 20 mg by mouth daily. Prednisone being tapered down, currently at 10 mg daily. He is on 2 L of oxygen , baseline. Patient encouraged to continue PT participation.
[2018-02-07] MEDS: ATENOLOL 25 MG TABLET PO SCH (21:13)
[2018-02-07] MEDS: LIDOCAINE REMOVAL TOP SCH (21:14)
[2018-02-07] MEDS: INSULIN REGULAR, HUMAN 100 UNIT/ML INJECTION SQ PRN (21:14)
[2018-02-07] MEDS: ATORVASTATIN 20 MG TABLET PO SCH (21:14)
[2018-02-08] MEDS: PANTOPRAZOLE 40 MG TABLET PO SCH ×2 (05:49→17:09)
[2018-02-08] MEDS: BUDESONIDE INH.SOLN 0.5mg/2ml NEB AEROSOL SCH ×2 (07:54→19:17)
[2018-02-08] MEDS: ALBUTEROL/IPRATROPIUM 2.5mg-0.5mg/3ml NEB AEROSOL SCH ×4 (07:54→19:17)
--- NOTE | 2018-02-08 08:32 | Progress Note ---
- Date 02/08/18 Subjective: Evita was still sleeping. RT was at bedside preparing to give him a treatment. He woke up briefly and answered questions appropriately but did not engage in conversation. He denied any immediate concerns. RN also reports an uneventful night. Objective Vital signs: Temperature 97.4 F 02/08/18 07:41 Pulse Rate 75 02/08/18 07:41 Respiratory Rate 18 02/08/18 07:58 Blood Pressure 138/69 02/08/18 07:41 Pulse Oximetry 99 02/08/18 07:58 Height/Weight/BMI: Height 1.8 m Weight 62.2 kg Body Mass Index 19.7 - Constitutional Present: no acute distress, thin - Routine HEENT Exam Head: Present: normocephalic ENT: Present: mucous membranes dry - Routine Respiratory Exam Present: decreased breath sounds - Routine Cardiovascular Exam Present: RRR, S1, S2 - Routine Abdominal Exam Present: soft, normoactive bowel sounds, non distended, non tender - Routine Extremities Exam Present: edema (trace ble) - Routine Skin Exam Present: intact, dry, warm - Routine Neurological Exam Absent: alert (drowsy but answers appropriately) - Routine Psychiatric Exam Present: cooperative Results - Labs CBC & Chem 7: 02/08/18 03:50 02/08/18 03:50 Microbiology Results: Microbiology 01/28/18 04:57 Peripheral/Iv Start Blood Culture - Final No Growth After 5 Days 01/28/18 04:51 Peripheral/Iv Start Blood Culture - Final No Growth After 5 Days 01/26/18 15:08 Peripheral/Iv Start Gram Stain - Final 01/26/18 15:08 Peripheral/Iv Start Blood Culture - Final Escherichia coli 01/26/18 15:02 Peripheral/Iv Start Gram Stain - Final 01/26/18 15:02 Peripheral/Iv Start Blood Culture - Final Escherichia coli Assessment and Plan (1) Acute and chronic respiratory failure with hypoxia Current visit: Yes Status: Acute Assessment and Plan: Assessment Sepsis syndrome manifested by temp elevation to 102.5, tachycardia and tachypnea - secondary to E. coli Bacteremia - resolved Bacteremia with E coli, resolving Pneumonia Interstitial lung disease with worsening respiratory status. Chronic hypoxic respiratory failure - on home O2 at 2L Anemia, with positive stool occult blood. General surgery consulted. Severe malnutrition - Severe Protein Calorie malnutrition Hypoalbuminemia Functional decline Anorexia Hyperkalemia, resolved Gait instability/Gen debility, PT consulted LE edema - secondary to malnutrition Right medial buttock pressure ulcer, Stage III - (POA) Chronic anemia Vitamin D Deficiency Hypocalcemia Hypermagnesemia - resolved Hypophosphatemia - resolved CAD HTN HDL GERD/esophageal stricture - S/P dilatation 11/07/17 Dysphagia - improved post esophageal stricture BPH Osteoporosis Underweight with BMI 17.2 Hx compression fracture to back - chronic back pain Hx [place] filter placement in 2007 Plan Continue ceftriaxone 1 gm daily for E-Coli bacteremia through 02/11/18. Hgb 7.6; has ranged between 7-8s for the majority of his hospitalization. Continue Protonix empirically for PUD. Continue Lasix; CO2 36; may consider diamox. Renal function remains stable. Continue Prednisone [address] Ayala following. Pt was on prednisone prior to admit. Will discuss dc plans with attending. GI Prophylaxis: Protonix Resuscitation Status: Full Code - Physician Narrative Physician: Mariaa Mercado Narrative: Date: 02/08/18 Time: 827 I have independently interviewed and examined patient. Patient chart reviewed. Case discussed with my SHOVEL OPERATOR. Care plan developed with my supervision, agree with above. Patient resting in bed at the time of interview. No reported abdominal pain, no flank pain, no dysuria. Patient had bowel movement, discussed with nursing staff , no evidence of melanotic stools or bright red blood per rectum. Hemoglobin dropped slightly from 8.3 yesterday to 7.6 today. On review of records, patient' s hemoglobin ranging from 7.68.9 over the past 11 days. Hemoglobin was 10.6 initially on admission. Otherwise, patient encouraged to participate in physical therapy exercises. Physical exam: AAO x 3, NAD PERRLA, EOMI S1 and S2 heard on auscultation, no murmurs Lungs clear to auscultation bilaterally, no wheezing, no crackles Abdomen soft, nontender, positive bowel sounds Trace edema bilateral lower extremities. Assessment: Escherichia coli UTI, anorexia, chronic anemia, history of hypertension, dyslipidemia, coronary artery disease, dysphagia, poor nutrition, osteoporosis Plan: Hemoglobin 7.6, will be monitored. Continue IV Rocephin. Continue oral prednisone 10 mg daily. Agree with dose of Diamox, will monitor serum carbon dioxide levels. Hospital Course Summary Disclaimer: The visit summary below is not to be considered part of the above Progress Note. Hospital Course: 01/26/18 Inpatient admission to [facility] for treatment of sepsis syndrome secondary to pulmonary source. Initiate ceftriaxone and azithromycin for pulmonary coverage. Will utilize neb treatments of DuoNeb QID and q 4prn along with budesonide BID. Start Solu-Medrol 125mg IV q 6 hours to decrease pulmonary inflammation. Consult with Dr Ayala for pulmonary evaluation and recommendations. IVF given via EMS. Will give bolus of 500cc and then continue NS with 20 KCl at 100 cc/hr. Recheck Lactate. Speech consult secondary to dysphagia. Continue Protonix BID. PT/OT consult to help improve strength and functional abilities. SCD for DVT prevention. Check TSH secondary to fatigue and functional decline. Check Prealbumin due to underweight. May continue home medications. Discussed code status with patient and his daughter - does have some ambivalence. Will have status full code. Care to return to Dr Doll at time of discharge from [facility]. 01/27/18 Continue ceftriaxone and azithromycin for pulmonary coverage. With positive Blood cultures, will repeat. Continue neb treatments of DuoNeb QID and q 4prn along with budesonide BID. Decrease Solu-Medrol to 62.5mg IV q 6 hours. Decrease IVF to 50cc/hr as oral drive starting to increase. PT/OT/Speech initiated to help improve functional status. 01/28/18 Continue ceftriaxone and azithromycin for pulmonary coverage. BS positive with E coli -sensitive to ceftriaxone. Repeat blood cultures drawn this morning. Discontinue IV fluids. Monitor oral intake. Nutritional supplements. Given lasix 20 mg IV x1. Presence of edema to all extremities. Weight up 6Kg from admission. Abraham was placed on 01/28/18. Continue neb treatments of DuoNeb QID and q 4prn along with budesonide BID. 01/29/18 Continue ceftriaxone 1 gm daily will cover E-Coli bacteremia- Recommendations Tx for 7-14 days. Continue azithromycin day 4/5 for pulmonary coverage. Can D/C after tomorrow. Asked nursing staff to place BRI hose to BLE for compression. Could consider scheduling diuretics. Continue neb treatments of DuoNeb QID and q 4prn along with budesonide BID. On baseline oxygen. 01/30/18 Discontinue Azithromycin as course is complete. Continue ceftriaxone 1 gm daily will cover E-Coli bacteremia- Will need tx --> . Continue with SCD/BRI hose to BLE to decrease edema and decrease risk for DVT. Re-Consult PT/OT- would like to get patient up and move. Ambulate with nursing QID. O2 at baseline at rest. Continues on scheduled Solu-Medrol. Add ISS to help sugars. Planning to SNU at [facility] once medically stable. 01/31/18 Continue ceftriaxone 1 gm daily will cover E-Coli bacteremia- Will need tx --> Decrease steroids to Prednisone 30 mg daily starting tomorrow. DC IV solu- medrol this evening Continue with bri hose to BLE for compression O2 at baseline at rest. Labs reviewed, Increase in K today. Will recheck tomorrow am. 02/01/18 Continue ceftriaxone 1 gm daily will cover E-Coli bacteremia through 02/11/18 K improved to 5.1. Calcium is low at 6.6 with an ionized calcium of only 1. Calcium was initiated. Question hypocalcemia contributing to his weakness. CO2 has been slightly trending up while gap is 4. ? association with electrolyte abnormalities versus IV diuresis. BGM have ranged 168-205. Thrombocytopenia improved to 100K today. Hgb down to 8.0 - iron studies pending. Continue Prednisone. Dietary consult ordered for tomorrow. 02/02/18 Continue ceftriaxone 1 gm daily will cover E-Coli bacteremia through 02/11/18. WBC up to 11.4. Afebrile. Hgb 8.0, iron 38, TIBC 155 -- IV iron ordered. Platelets up to 109. K 5.1. Phos 2.2. Vit D level was markedly low <12.5 -- start ergocalciferol 50, 000 U per week x 8 weeks (Per [employer], with prolonged, severe vit D deficiency , there is reduced absorption of calcium and phosphorous --> hypocalcemia and secondary hyperparathyroidism --> phosphaturia bone demineralization) KUB personally reviewed - nonspecific gas pattern Decrease prednisone to 20 mg starting tomorrow - home dose per ambulatory med list Seen by wound RN for stage III pressure injury to Left Buttock and Left Medial Buttock: recommends silver + foam dressing 02/03/18 Continue ceftriaxone 1 gm daily will cover E-Coli bacteremia through 02/11/18. Continue with K-Phos oral supplementation-, phosphorus this morning 2.1, magnesium 2.4. Continue with vitamin D supplementation Will give an additional dose of IV albumin 25 grams 1. Later this afternoon, followed by Lasix 40 milligrams IV 1. Patient also received this regimen this morning Overall blood sugars have been well controlled today. Prednisone taper Wound care as per the wound team as patient does have multiple buttock and medial back wounds Cont PT/OT. 02/04/18 Continue ceftriaxone 1 gm daily will cover E-Coli bacteremia through 02/11/18. Discontinue phosphorus supplementation. Phosphorus is normal Encourage ambulation. Oral intake is improving. We'll hold off on diuresis today. Recheck weight, edema, and renal panel tomorrow. We'll check Hemoccult regarding anemia, hemoglobin is trending down. Recheck CBC tomorrow. Hold aspirin for now. He does not appear to have iron deficiency on iron studies. Continue prednisone 20 mg daily. We'll need to discuss with Dr. Ayala whether this is his usual home dose. 02/05/18 Continue ceftriaxone 1 gm daily will cover E-Coli bacteremia through 02/11/18. Positive stool occult blood, hemoglobin 8.1 today when compared to 7.6 yesterday. Aspirin held for today. Case discussed with general surgery, Dr. Black over the phone and consult placed. We'll hold off on diuresis today. Recheck weight, urine output, pedal edema, and renal panel tomorrow. We'll check Hemoccult regarding anemia, hemoglobin is trending down. Recheck CBC tomorrow. Hold aspirin for now. He does not appear to have iron deficiency on iron studies. Continue prednisone 20 mg daily. P 02/06/18 Continue ceftriaxone 1 gm daily for E-Coli bacteremia through 02/11/18. Hemoglobin improved to 8.4. Dr. Black is recommending conservative treatment for PUD with Protonix. He has not recommending colonoscopy at this time, and the patient would prefer not to undergo a colonoscopy either. Aspirin remains on hold. Edema is improving, though he is up about 1.3 L of fluid. Renal function is stable. Diuretics remain on hold. Electrolytes have stabilized. Prednisone being tapered down, currently at 10 mg daily. He is on 2 L of oxygen , baseline. PT notes reviewed. He occasionally refused therapy; at times is unmotivated. He needs moderate to maximal assistance. 02/07/18 Continue ceftriaxone 1 gm daily for E-Coli bacteremia through 02/11/18. Hemoglobin improved to 8.3. Dr. Black is recommending conservative treatment for PUD with Protonix. He has not recommending colonoscopy at this time, and the patient would prefer not to undergo a colonoscopy either. Aspirin remains on hold. Edema is improving, patient has positive 500 mL of fluid. Renal function is stable. Cautious diuresis with Lasix 20 mg by mouth daily. Prednisone being tapered down, currently at 10 mg daily. He is on 2 L of oxygen , baseline. 02/08/18 Hgb 7.6; has ranged between 7-8s for the majority of his hospitalization. Continue Protonix empirically for PUD. Continue Lasix; CO2 36; may consider diamox. Renal function remains stable. Addendum entered and electronically signed by Valorie Holt APRN 02/08/18 09: 06: Pt had hypoglycemia of 56 this morning, improved to 70 after a Mighty Shake and juice. Addendum entered and electronically signed by Valorie Holt APRN 02/08/18 10: 13: Will MAIKEL Abraham - monitor for retention.
[2018-02-08] MEDS: POLYETHYL GLYCOL 3350 17gm PACKET PO SCH (09:35)
[2018-02-08] MEDS: HYDROCODONE/APAP 7.5 MG/325 MG TABLET PO PRN (09:49)
[2018-02-08] MEDS: CALCIUM 600 + VIT D 400 TABLET PO SCH ×2 (09:49→20:20)
[2018-02-08] MEDS: GUAIFENESIN/D-METHORPHAN 600mg/30mg TABLET PO SCH ×2 (09:49→20:20)
[2018-02-08] MEDS: FUROSEMIDE 20 MG TABLET PO SCH (09:49)
[2018-02-08] MEDS: MULTI-VITAMIN + MINERAL TABLET PO SCH (09:49)
[2018-02-08] MEDS: PredniSONE 10 MG TABLET PO SCH (09:49)
[2018-02-08] MEDS: LIDOCAINE 5% PATCH TOP SCH (09:50)
[2018-02-08] MEDS ORDERED: acetaZOLAMIDE SR 500 MG CAPSULE PO ONE (12:52)
[2018-02-08] MEDS: CEFTRIAXONE 1 G in D5W 100 ML IV SCH (16:23)
[2018-02-08] MEDS: SALINE FLUSH 10ml SYRINGE IVF PRN (16:24)
[2018-02-08] MEDS: NS FLUSH BAG 500ml IV PRN (16:25)
[2018-02-08] MEDS: INSULIN REGULAR, HUMAN 100 UNIT/ML INJECTION SQ PRN ×2 (17:08→20:46)
[2018-02-08] MEDS: ATENOLOL 25 MG TABLET PO SCH (20:20)
[2018-02-08] MEDS: ATORVASTATIN 20 MG TABLET PO SCH (20:20)
[2018-02-08] MEDS: LIDOCAINE REMOVAL TOP SCH (20:29)
[2018-02-09] MEDS: PANTOPRAZOLE 40 MG TABLET PO SCH ×2 (06:13→18:21)
[2018-02-09] MEDS: ALBUTEROL/IPRATROPIUM 2.5mg-0.5mg/3ml NEB AEROSOL SCH ×3 (07:18→20:40)
[2018-02-09] MEDS: BUDESONIDE INH.SOLN 0.5mg/2ml NEB AEROSOL SCH ×2 (07:19→20:40)
[2018-02-09] MEDS: CALCIUM 600 + VIT D 400 TABLET PO SCH ×2 (09:12→21:00)
[2018-02-09] MEDS: FUROSEMIDE 20 MG TABLET PO SCH (09:12)
[2018-02-09] MEDS: PredniSONE 10 MG TABLET PO SCH (09:12)
[2018-02-09] MEDS: GUAIFENESIN/D-METHORPHAN 600mg/30mg TABLET PO SCH ×2 (09:13→21:00)
[2018-02-09] MEDS: LIDOCAINE 5% PATCH TOP SCH (09:13)
[2018-02-09] MEDS: POLYETHYL GLYCOL 3350 17gm PACKET PO SCH (09:13)
[2018-02-09] MEDS: MULTI-VITAMIN + MINERAL TABLET PO SCH (09:13)
--- NOTE | 2018-02-09 10:06 | Progress Note ---
- Date 02/09/18 Subjective: Evita was still resting in bed, but was awake. He c/o his back "smarting" but this has been typical. Otherwise he denies any new pains or concerns. He denies feeling short of breath. He denies feeling dizzy. He denies abdominal pain or nausea and is awaiting breakfast's arrival. Oral intake overall has improved. Objective Vital signs: Temperature 97.1 F 02/09/18 08:00 Pulse Rate 86 02/09/18 08:00 Respiratory Rate 20 02/09/18 08:00 Blood Pressure 125/65 02/09/18 08:00 Pulse Oximetry 97 02/09/18 08:00 Height/Weight/BMI: Height 1.8 m Weight 62.2 kg Body Mass Index 19.7 - Constitutional Present: no acute distress, well nourished, well developed, cachectic (lying supine in bed, ribs are prominent) - Routine HEENT Exam Head: Present: normocephalic Eye: Present: PERRL. Absent: conjunctival icterus, scleral injection - Routine Respiratory Exam Present: decreased breath sounds - Routine Cardiovascular Exam Present: RRR, S1, S2 - Routine Abdominal Exam Present: soft, normoactive bowel sounds, non distended, non tender - Routine Extremities Exam Present: edema (2+ around ankles) - Routine Skin Exam Present: intact, dry, warm - Routine Neurological Exam Present: alert, oriented X3, normal speech - Routine Psychiatric Exam Present: normal affect, normal thought process, cooperative Results - Labs CBC & Chem 7: 02/09/18 04:13 02/09/18 04:13 Microbiology Results: Microbiology 01/28/18 04:57 Peripheral/Iv Start Blood Culture - Final No Growth After 5 Days 01/28/18 04:51 Peripheral/Iv Start Blood Culture - Final No Growth After 5 Days 01/26/18 15:08 Peripheral/Iv Start Gram Stain - Final 01/26/18 15:08 Peripheral/Iv Start Blood Culture - Final Escherichia coli 01/26/18 15:02 Peripheral/Iv Start Gram Stain - Final 01/26/18 15:02 Peripheral/Iv Start Blood Culture - Final Escherichia coli Assessment and Plan (1) Acute and chronic respiratory failure with hypoxia Current visit: Yes Status: Acute Assessment and Plan: Assessment Sepsis syndrome manifested by temp elevation to 102.5, tachycardia and tachypnea - secondary to E. coli Bacteremia - resolved Bacteremia with E coli, resolving Pneumonia Interstitial lung disease with worsening respiratory status. Chronic hypoxic respiratory failure - on home O2 at 2L Anemia, with positive stool occult blood. General surgery consulted. Severe malnutrition - Severe Protein Calorie malnutrition Hypoalbuminemia Functional decline Anorexia Hyperkalemia, resolved Gait instability/Gen debility, PT consulted LE edema - secondary to malnutrition Right medial buttock pressure ulcer, Stage III - (POA) Chronic anemia Vitamin D Deficiency Hypocalcemia Hypermagnesemia - resolved Hypophosphatemia - resolved CAD HTN HDL GERD/esophageal stricture - S/P dilatation 11/07/17 Dysphagia - improved post esophageal stricture BPH Osteoporosis Underweight with BMI 17.2 Hx compression fracture to back - chronic back pain Hx [place] filter placement in 2007 Plan Continue ceftriaxone 1 gm daily for E-Coli bacteremia through 02/11/18. Hgb 7.8; stable for pt. Continue Protonix empirically for PUD. CO2 down to 31 after receiving Diamox yesterday. Renal function remains stable. Continue Prednisone [address] Ayala following. Pt was on prednisone prior to admit. Discussed with case mgt -- she is contacting [facility] to arrange discharge. DVT Prophylaxis: SCD's GI Prophylaxis: Protonix Resuscitation Status: Full Code - Physician Narrative Physician: Mariaa Mercado Narrative: Date: 02/09/18 Time: 1001 I have independently interviewed and examined patient. Patient chart reviewed. Case discussed with my NET SOFTWARE ARCHITECT. Care plan developed with my supervision, agree with above. Patient resting in bed at the time of interview. Reports having back pain and requests to be repositioned in bed. No reported abdominal pain, no flank pain, no dysuria. Hemoglobin stable, 7.6 yesterday and 7.8 today. On review of records , patient's hemoglobin ranging from 7.68.9 over the past 12 days. Hemoglobin was 10.6 initially on admission. Otherwise, patient encouraged to participate in physical therapy exercises. Physical exam: AAO x 3, NAD PERRLA, EOMI S1 and S2 heard on auscultation, no murmurs Lungs clear to auscultation bilaterally, no wheezing, no crackles Abdomen soft, nontender, positive bowel sounds Trace edema bilateral lower extremities. Assessment: Escherichia coli UTI, anorexia, chronic anemia, history of hypertension, dyslipidemia, coronary artery disease, dysphagia, poor nutrition, osteoporosis Plan: Hemoglobin 7.8, will be monitored. Continue IV Rocephin. Continue oral prednisone 10 mg daily. Serum CO2 improved to 31 today after he received 1 dose of Diamox yesterday. Case management on board regarding disposition. Hospital Course Summary Disclaimer: The visit summary below is not to be considered part of the above Progress Note. Hospital Course: Evita Negron was admitted on 01/26/18 for sepsis secondary to what was initially thought to be pulmonary source. He was started on ceftriaxone and azithromycin. DuoNebs and Pulmicort treatments were provided. He was started on high-dose IV steroids and Dr. Ayala was consulted -- steroids were slowly tapered. On his blood cultures were positive to E. coli, sensitive to ceftriaxone. IVF were discontinued on 01/28/18 and he was given IV diuretics. A Abraham was inserted on 01/28/18 with anticipation of ongoing IV diuresis. By 01/30/18 the azithromycin course was completed. Labs were monitored through his hospitalization: platelets dropped to a low of 96 on 01/31/18 and then climbed back into a normal range by 02/05/18. Hgb initially was 10.6 but stabilized in the 7.6-8.7 range for the remainder of his stay. He did not require blood transfusion. Iron level was low at 38, TIBC 155. Vitamin B12 level was >1000. A consult was placed to Dr. Black for heme positive stools -- he recommended conservative treatment for PUD with Protonix. He hwas not recommending colonoscopy, and the patient would prefer not to undergo a colonoscopy either. ASA was placed on hold. Calcium was consistently low and a Vitamin D level was assessed. This too was markedly low and he was started on ergocalciferol 50,000 U per week x 8 weeks. Phosphorous was noted to be low on 02/02-02/03 but this was corrected with KPhos. He remained quite edematous, which was partially due to malnutrition. He received IV albumin 25 gm along with IV diuretics for several consecutive days with an expected reduction in edema. CO2 was climbing with IV diuresis and he was given diamox for contraction alkalosis on 02/08/18 with subsequent improvement. While PT/OT were consulted he was quite debilitated and at times was not overly motivated to participate in therapy. He needed moderate to maximal assistance. Wound care was consulted for stage III pressure injury to Left Buttock and Left Medial Buttock: recommended silver + foam dressing. By day of discharge he was on his baseline 2L of oxygen. He was down to Prednisone 10 mg daily. He needs 2 more days of IV Rocephin. Abraham was discontinued on .
[2018-02-09] MEDS: ERGOCALCIFEROL 50,000 UNIT CAPSULE PO SCH (16:01)
[2018-02-09] MEDS: CEFTRIAXONE 1 G in D5W 100 ML IV SCH (16:02)
[2018-02-09] MEDS: INSULIN REGULAR, HUMAN 100 UNIT/ML INJECTION SQ PRN ×2 (16:02→21:05)
[2018-02-09] MEDS: SALINE FLUSH 10ml SYRINGE IVF PRN (16:02)
[2018-02-09] MEDS: ATORVASTATIN 20 MG TABLET PO SCH (21:00)
[2018-02-09] MEDS: ATENOLOL 25 MG TABLET PO SCH (21:00)
[2018-02-09] MEDS: LIDOCAINE REMOVAL TOP SCH (21:00)
[2018-02-10] MEDS: PANTOPRAZOLE 40 MG TABLET PO SCH ×2 (06:46→18:16)
[2018-02-10] MEDS: ALBUTEROL/IPRATROPIUM 2.5mg-0.5mg/3ml NEB AEROSOL SCH ×4 (06:59→19:41)
[2018-02-10] MEDS: BUDESONIDE INH.SOLN 0.5mg/2ml NEB AEROSOL SCH ×2 (06:59→19:41)
[2018-02-10] MEDS: GUAIFENESIN/D-METHORPHAN 600mg/30mg TABLET PO SCH ×2 (09:05→20:40)
[2018-02-10] MEDS: FUROSEMIDE 20 MG TABLET PO SCH (09:05)
[2018-02-10] MEDS: MULTI-VITAMIN + MINERAL TABLET PO SCH (09:05)
[2018-02-10] MEDS: PredniSONE 10 MG TABLET PO SCH (09:05)
[2018-02-10] MEDS: CALCIUM 600 + VIT D 400 TABLET PO SCH ×2 (09:05→20:39)
[2018-02-10] MEDS: POLYETHYL GLYCOL 3350 17gm PACKET PO SCH (09:06)
[2018-02-10] MEDS: LIDOCAINE 5% PATCH TOP SCH (09:06)
[2018-02-10] MEDS: HYDROCODONE/APAP 7.5 MG/325 MG TABLET PO PRN (11:56)
--- NOTE | 2018-02-10 12:10 | Progress Note ---
- Date 02/10/18 Subjective: Evita is seen in follow up. He sleeps through exam. No distress. Chart reviewed for collateral information. Objective Vital signs: Temperature 97.9 F 02/10/18 07:29 Pulse Rate 81 02/10/18 07:29 Respiratory Rate 16 02/10/18 10:29 Blood Pressure 132/60 02/10/18 07:29 Pulse Oximetry 100 02/10/18 10:29 Height/Weight/BMI: Height 1.8 m Weight 59.1 kg Body Mass Index 19.7 - Constitutional Present: no acute distress, thin - Routine HEENT Exam Head: Present: normocephalic, atraumatic Eye: Absent: periorbital ecchymosis, periorbital swelling - Routine Respiratory Exam Present: CTA bilaterally, distant breath sounds. Absent: rales, rhonchi, wheezes - Routine Cardiovascular Exam Present: RRR, S1, S2 - Routine Abdominal Exam Present: soft, non distended, non tender - Routine Exam Comments: Abraham- clear yellow urine. - Routine Extremities Exam Present: no edema, non tender - Routine Musculoskeletal Exam Musculoskeletal: Present: no clubbing or cyanosis - Routine Skin Exam Present: intact, dry, warm - Routine Psychiatric Exam Present: unable to assess Results - Labs CBC & Chem 7: 02/09/18 04:13 02/09/18 04:13 Microbiology Results: Microbiology 01/28/18 04:57 Peripheral/Iv Start Blood Culture - Final No Growth After 5 Days 01/28/18 04:51 Peripheral/Iv Start Blood Culture - Final No Growth After 5 Days 01/26/18 15:08 Peripheral/Iv Start Gram Stain - Final 01/26/18 15:08 Peripheral/Iv Start Blood Culture - Final Escherichia coli 01/26/18 15:02 Peripheral/Iv Start Gram Stain - Final 01/26/18 15:02 Peripheral/Iv Start Blood Culture - Final Escherichia coli - Impressions KUB 02/02/18 Findings: Patient shows nonspecific gas pattern. There is moderate gas and stool in the bowel without localized point of obstruction. Previous spine stabilization noted. Patient also demonstrates a vena cava filter in place. Incidentally noted are extensive interstitial lung disease changes. Impression: Moderate gas and stool in the bowel without localized point of obstruction or marked distention. . Assessment and Plan (1) Acute and chronic respiratory failure with hypoxia Current visit: Yes Status: Acute Assessment and Plan: Assessment Sepsis syndrome manifested by temp elevation to 102.5, tachycardia and tachypnea - secondary to E. coli Bacteremia - resolved Bacteremia with E coli, resolving Pneumonia Interstitial lung disease with worsening respiratory status. Chronic hypoxic respiratory failure - on home O2 at 2L Anemia, with positive stool occult blood. General surgery consulted. Severe malnutrition - Severe Protein Calorie malnutrition Hypoalbuminemia Functional decline Anorexia Hyperkalemia, resolved Gait instability/Gen debility, PT consulted LE edema - secondary to malnutrition Right medial buttock pressure ulcer, Stage III - (POA) Chronic anemia Vitamin D Deficiency Hypocalcemia Hypermagnesemia - resolved Hypophosphatemia - resolved CAD HTN HDL GERD/esophageal stricture - S/P dilatation 11/07/17 Dysphagia - improved post esophageal stricture BPH Osteoporosis Underweight with BMI 17.2 Hx compression fracture to back - chronic back pain Hx Sara filter placement in 2007 Plan 02/10/2015 Continue ceftriaxone 1 gm daily for E-Coli bacteremia through 02/11/18. HGB remains stable- Continue Protonix empirically for PUD, benign upper GI mass. No new labs today- repeat in AM for stability. Pt. continues to have intermittent loose stools- repeat KUB to assess fecal burden. He failed removal of Abraham yesterday- required catheter reinsertion due to retention- consider adding Flomax vs. O/P urology referral. Ongoing malnutrition, decreased appetite. Add low dose Remeron to push appetite. Continue Prednisone [address] Ayala following. Pt was on prednisone prior to admit. Rvwd case management notes and D/W disability case manager. Waiting on insurance approval for SNU placement. DVT Prophylaxis: BRI [facility] Prophylaxis: Protonix Resuscitation Status: Full Code - Physician Narrative Physician: Mariaa Mercado MD Narrative: Date: 02/10/18 Time: 1206 I have independently interviewed and examined patient. Patient chart reviewed. Case discussed with my POWDER CORE TESTER. Care plan developed with my supervision, agree with above. Patient resting in bed at the time of interview. Continues to have low back pain , positional. No reported abdominal pain, no flank pain, no dysuria. On review of records, patient's hemoglobin ranging from 7.68.9 over the past 2 weeks. Hemoglobin was 10.6 initially on admission. Otherwise, patient encouraged to participate in physical therapy exercises. Physical exam: AAO x 3, NAD, malnourished patient. PERRLA, EOMI S1 and S2 heard on auscultation, no murmurs Lungs clear to auscultation bilaterally, no wheezing, no crackles Abdomen soft, nontender, positive bowel sounds Trace edema bilateral lower extremities. Assessment: Escherichia coli UTI, anorexia, chronic anemia, history of hypertension, dyslipidemia, coronary artery disease, dysphagia, poor nutrition, osteoporosis Plan: Continue IV Rocephin. Patient evaluated by bank secrecy act officer, Dr. Ayala today and recommendation to continue oral prednisone 10 mg daily and discontinue CellCept on discharge. Abraham catheter had to be reinserted after failed catheter removal yesterday. Flomax initiated, will require outpatient urology. Case management on board regarding disposition. Hospital Course Summary Disclaimer: The visit summary below is not to be considered part of the above Progress Note. Hospital Course: Evita Negron was admitted on 01/26/18 for sepsis secondary to what was initially thought to be pulmonary source. He was started on ceftriaxone and azithromycin. DuoNebs and Pulmicort treatments were provided. He was started on high-dose IV steroids and Dr. Ayala was consulted -- steroids were slowly tapered. On his blood cultures were positive to E. coli, sensitive to ceftriaxone. IVF were discontinued on 01/28/18 and he was given IV diuretics. A Abraham was inserted on 01/28/18 with anticipation of ongoing IV diuresis. By 01/30/18 the azithromycin course was completed. Labs were monitored through his hospitalization: platelets dropped to a low of 96 on 01/31/18 and then climbed back into a normal range by 02/05/18. Hgb initially was 10.6 but stabilized in the 7.6-8.7 range for the remainder of his stay. He did not require blood transfusion. Iron level was low at 38, TIBC 155. Vitamin B12 level was >1000. A consult was placed to Dr. Black for heme positive stools -- he recommended conservative treatment for PUD with Protonix. He hwas not recommending colonoscopy, and the patient would prefer not to undergo a colonoscopy either. ASA was placed on hold. Calcium was consistently low and a Vitamin D level was assessed. This too was markedly low and he was started on ergocalciferol 50,000 U per week x 8 weeks. Phosphorous was noted to be low on 02/02-02/03 but this was corrected with KPhos. He remained quite edematous, which was partially due to malnutrition. He received IV albumin 25 gm along with IV diuretics for several consecutive days with an expected reduction in edema. CO2 was climbing with IV diuresis and he was given diamox for contraction alkalosis on 02/08/18 with subsequent improvement. While PT/OT were consulted he was quite debilitated and at times was not overly motivated to participate in therapy. He needed moderate to maximal assistance. Wound care was consulted for stage III pressure injury to Left Buttock and Left Medial Buttock: recommended silver + foam dressing. By day of discharge he was on his baseline 2L of oxygen. He was down to Prednisone 10 mg daily. He needs 2 more days of IV Rocephin. Abraham was discontinued on . 02/10/2015 Continue ceftriaxone 1 gm daily for E-Coli bacteremia through 02/11/18. HGB remains stable- Continue Protonix empirically for PUD, benign upper GI mass. No new labs today- repeat in AM for stability. Pt. continues to have intermittent loose stools- repeat KUB to assess fecal burden. He failed removal of Abraham yesterday- required catheter reinsertion due to retention- consider adding Flomax vs. O/P urology referral. Ongoing malnutrition, decreased appetite. Add low dose Remeron to push appetite. Continue Prednisone [address] Ayala following. Pt was on prednisone prior to admit. Rvwd case management notes and D/W disability case manager. Waiting on insurance approval for SNU placement.
--- NOTE | 2018-02-10 12:32 | XRay Report ---
Indication: F/U Constipation PROCEDURE: XR KUB: Encounter: Initial Comparison: 02/02/2018 Findings: The included portions of the lung bases demonstrate moderate diffuse interstitial parenchymal opacity suggesting acute versus chronic interstitial lung disease. No pleural effusion. There is scattered gas and stool in the abdomen without evidence of obstruction or free air. No soft tissue mass or organomegaly. No abnormal calcification. There is an IVC filter in place to the right of midline. No definite bony destructive process. The patient has had a previous vertebroplasty of the upper lumbar spine IMPRESSION: No evidence for obstruction or perforation. Moderate diffuse lung disease of the included portions of the lung bases likely representing chronic interstitial lung disease. .
--- NOTE | 2018-02-10 14:41 | Pulmonology Progress Note ---
Subjective Principal diagnosis: pulmonary fibrosis Interval history: daughter is at the bedside. patient eating very well. on nasal cannula 2 lpm. no new symptoms or problems Exam Vital signs: Temperature 97.9 F 02/10/18 07:29 Pulse Rate 81 02/10/18 07:29 Respiratory Rate 16 02/10/18 10:29 Blood Pressure 132/60 02/10/18 07:29 Pulse Oximetry 100 02/10/18 10:29 Inpatient Medications: Generic Name Dose Route Start Last Admin Trade Name Freq PRN Reason Stop Dose Admin Acetaminophen 650 mg 01/26/18 17:37 02/05/18 21:37 Tylenol PO 650 mg Q5H PRN Administration Discomfort Hydrocodone Bitart/Acetaminophen 1 tab 01/26/18 17:37 02/10/18 11:56 [place] 7.5/325 PO 1 tab Q4H PRN Administration Pain Albuterol/Ipratropium 3 ml 01/26/18 19:00 02/10/18 10:29 Duoneb AEROSOL 3 ml RTQID MANAN Administration Albuterol/Ipratropium 3 ml 01/26/18 17:37 Duoneb AEROSOL Q4HR PRN Shortness of air Aspirin 81 mg 01/26/18 21:00 02/03/18 20:06 Ecotrin PO 81 mg HS MANAN Administration Atenolol 25 mg 01/26/18 21:00 02/09/18 21:00 Tenormin PO 25 mg HS MANAN Administration Atorvastatin Calcium 20 mg 01/26/18 21:00 02/09/18 21:00 Lipitor PO 20 mg HS MANAN Administration Bisacodyl 10 mg 01/26/18 17:37 02/07/18 13:49 Dulcolax RECTALLY 10 mg DAILY PRN Administration Constipation Budesonide 0.5 mg 01/26/18 19:00 02/10/18 06:59 Pulmicort Inhalation AEROSOL 0.5 mg RTBID MANAN Administration Calcium/Vitamin D 1 tab 02/01/18 09:00 02/10/18 09:05 Caltrate + D PO 1 tab BID MANAN Administration Ergocalciferol 50,000 unit 02/02/18 15:00 02/09/18 16:01 Vitamin D-2 PO 03/23/18 15:01 50,000 unit Q7D MANAN Administration Furosemide 20 mg 02/08/18 09:00 02/10/18 09:05 Lasix 20 Mg Tab PO 20 mg DAILY MANAN Administration Guaifenesin/Dextromethorphan 1 tab 01/26/18 21:00 02/10/18 09:05 Mucinex Dm PO 1 tab BID MANAN Administration Ceftriaxone Sodium 1 g/ 100 mls @ 200 mls/hr 01/27/18 16:00 02/09/18 16:40 Dextrose IV Infused Q24H MANAN Infusion Insulin Human Regular 2 - 8 unit 01/30/18 14:01 02/09/18 21:05 Novolin R SQ 2 unit SS PRN Administration Hyperglycemia Protocol Lidocaine 1 patch 02/01/18 14:00 02/10/18 09:06 Lidoderm TOP 1 patch DAILY MANAN Administration Lidocaine HCl/Dextrose 1 removal 02/01/18 21:00 02/09/18 21:00 Lidoderm Patch Removal TOP 1 removal 2100 MANAN Administration Meloxicam 15 mg 01/26/18 17:37 01/26/18 20:54 Mobic PO 15 mg DAILY PRN Administration Pain Menthol 1 lozenge 01/26/18 17:37 Ricola Sf MM PRN PRN Cough Mirtazapine 7.5 mg 02/10/18 21:00 Remeron PO HS MANAN Multivitamins/Minerals 1 tab 02/04/18 09:00 02/10/18 09:05 Therapeutic - M PO 1 tab DAILY MANAN Administration Pantoprazole Sodium 40 mg 01/26/18 18:44 02/10/18 06:46 Protonix Tab PO 40 mg ACBID MANAN Administration Polyethylene Glycol 17 gm 01/28/18 16:00 02/10/18 09:06 Miralax PO Not Given DAILY MANAN Prednisone 10 mg 02/06/18 08:00 02/10/18 09:05 Deltasone 10 Mg PO 10 mg WB MANAN Administration Prochlorperazine Edisylate 10 mg 01/26/18 17:37 Compazine Iv IVP Q6H PRN Nausea &/or vomiting Sodium Chloride 10 - 80 ml 01/26/18 14:54 02/09/18 16:02 Iv Flush IVF 10 ml PRN PRN Administration Flushing Sodium Chloride 500 ml 01/28/18 16:07 02/08/18 16:25 Normal Saline IV 500 ml PRN PRN Administration Discontinued Medications Generic Name Dose Route Start Last Admin Trade Name Freq PRN Reason Stop Dose Admin Acetaminophen 1,000 mg 01/26/18 15:45 01/26/18 15:54 Tylenol PO 1,000 mg O MANAN Administration Acetazolamide 500 mg 02/08/18 12:52 02/08/18 14:45 Diamox 500 Mg Sequels PO 02/08/18 12:53 500 mg O ONE Administration Albumin Human 25 g 02/02/18 20:11 02/02/18 21:57 Albumin Human 25gm IV 02/02/18 20:12 25 g O ONE Administration Albumin Human 25 g 02/03/18 07:00 02/03/18 06:34 Albumin Human 25gm IV 02/03/18 07:01 25 g O ONE Administration Furosemide 20 mg 01/28/18 11:33 01/28/18 11:50 Lasix 20 Mg/2 Ml IVP 01/28/18 11:34 20 mg ONCE ONE Administration Furosemide 20 mg 01/29/18 16:05 01/29/18 16:37 Lasix 20 Mg/2 Ml IVP 01/29/18 16:06 20 mg ONCE ONE Administration Furosemide 40 mg 01/30/18 09:47 01/30/18 10:40 Lasix 40 Mg/4 Ml IVP 01/30/18 09:48 40 mg O ONE Administration Furosemide 40 mg 01/31/18 18:00 01/31/18 21:27 Lasix 40 Mg/4 Ml IVP 01/31/18 18:01 40 mg O ONE Administration Furosemide 40 mg 02/01/18 07:30 02/01/18 13:57 Lasix 40 Mg/4 Ml IVP 02/01/18 07:31 40 mg O ONE Administration Furosemide 40 mg 02/02/18 20:15 02/02/18 23:37 Lasix 40 Mg/4 Ml IVP 02/02/18 20:16 40 mg O ONE Administration Furosemide 40 mg 02/03/18 09:00 02/03/18 08:24 Lasix 40 Mg/4 Ml IVP 02/03/18 09:01 40 mg O ONE Administration Furosemide 40 mg 02/03/18 18:30 02/03/18 18:00 Lasix 40 Mg/4 Ml IVP 02/03/18 18:31 40 mg O ONE Administration Ceftriaxone Sodium 1 gm/ 100 mls @ 200 mls/hr 01/26/18 15:50 07/09/18 16:30 Sodium Chloride IV 01/26/18 16:19 Infused O ONE Infusion Sodium Chloride 500 mls @ 999.9 mls/hr 01/26/18 16:04 Normal Saline IV 01/26/18 16:33 .Q30M ONE Azithromycin 500 mg/ Sodium 250 mls @ 167 mls/hr 01/26/18 16:21 01/26/18 18: 13 Chloride IV 01/26/18 17:50 Infused O ONE Infusion Azithromycin 500 mg/ Sodium 250 mls @ 167 mls/hr 01/27/18 16:00 01/29/18 18: 15 Chloride IV Infused Q24H MANAN Infusion Potassium Chloride/Sodium Chloride 1,000 mls @ 100 mls/hr 01/26/18 17:37 05/07 10:48 Ns With Kcl 20 Meq Premix IV Infused .Q10H MANAN Infusion Sodium Chloride 500 mls @ 999.9 mls/hr 01/26/18 18:32 01/26/18 19:04 Normal Saline IV 01/26/18 19:01 Infused .Q30M ONE Infusion Sodium Chloride 1,000 mls @ 999.9 mls/hr 01/26/18 19:43 01/26/18 21:00 Normal Saline IV 01/26/18 20:42 Infused .Q1H ONE Infusion Potassium Chloride/Sodium Chloride 1,000 mls @ 50 mls/hr 01/27/18 10:18 01/28 11:50 1/2 Ns With Kcl 20meq Premix IV Infused .Q20H MANAN Infusion Albumin Human 25 g/ IV 100 mls @ 50 mls/hr 01/31/18 17:56 01/31/18 20:30 Solution IV 01/31/18 19:55 Infused O ONE Infusion Albumin Human 100 mls @ 50 mls/hr 02/01/18 10:00 02/01/18 13:23 Albumin Human 25gm IV 02/01/18 11:59 Infused O ONE Infusion Albumin Human 25 g/ Sodium 100 mls @ 100 mls/hr 02/03/18 15:30 02/03/18 17:31 Chloride IV 02/03/18 16:29 Not Given O ONE Albumin Human 50 mls @ 50 mls/hr 02/03/18 16:00 02/03/18 18:18 Albumin Human 12.5gm IV 02/03/18 17:59 Infused Q1H MANAN Infusion Magnesium Hydroxide 30 ml 01/26/18 17:37 01/29/18 17:53 Mom PO 30 ml DAILY PRN Administration Constipation Methylprednisolone Sodium Succinate 125 mg 01/26/18 17:37 01/27/18 08:11 Solu-Medrol IVP 125 mg Q6HR MANAN Administration Methylprednisolone Sodium Succinate 62.5 mg 01/27/18 15:00 01/31/18 21:28 Solu-Medrol IVP 01/31/18 21:00 62.5 mg Q6HR MANAN Administration Pantoprazole Sodium 40 mg 01/27/18 06:30 Protonix Tab PO ACB MANAN Pharmacy Consult 1 each 01/26/18 17:57 Pharmacy Consult - Fall Risk 01/26/18 17:58 ONE TIME ONE Pharmacy Consult 1 each 02/04/18 19:04 Pharmacy Consult - Fall Risk 02/04/18 19:05 ONE TIME ONE Pneumococcal 7-Valent Conj Vacc 0.5 ml 01/27/18 13:15 01/27/18 13:28 Prevnar 13 IM 01/27/18 13:16 0.5 ml .ONCE ONE Administration Prednisone 30 mg 02/01/18 08:00 02/02/18 08:37 Deltasone 10 Mg PO 30 mg WB MANAN Administration Prednisone 20 mg 02/03/18 08:00 02/05/18 09:55 Deltasone 10 Mg PO 20 mg WB MANAN Administration Sodium Phosphate 500 mg 02/03/18 08:00 02/04/18 17:52 K-Phos *Neutral* Tablet PO Not Given WM MANAN - Constitutional no acute distress, thin - Routine HEENT Exam Eye: Present: conjunctival icterus - Routine Neck Exam Present: supple - Routine Respiratory Exam Present: crackles - Routine Cardiovascular Exam Present: RRR - Routine Abdominal Exam Present: soft - Urinary Catheter Management Urethral Cath placed during this visit: yes, but has since been removed by the nurse Insertion date: 02/09/18 Removal date: 02/09/18 Results - Laboratory Findings Laboratory: Laboratory Results - last 48 hr 02/08/18 02/08/18 02/09/18 14:43 20:22 04:13 WBC 9.3 RBC 2.53 L Hgb 7.8 L Hct 25.4 L MCV 100.4 H MCH 30.8 MCHC 30.7 L RDW Std Deviation 48.0 Plt Count 190 MPV 9.6 Immature Gran % (Auto) 0.2 Neut % (Auto) 83.7 H Lymph % (Auto) 6.2 L [place] % (Auto) 9.5 H Eos % (Auto) 0.3 Baso % (Auto) 0.1 Neut # (Auto) 7.8 H Lymph # (Auto) 0.6 L [place] # (Auto) 0.9 H Eos # (Auto) 0.0 Baso # (Auto) 0.0 Abs Immat Gran (auto) 0.02 Turbidity Sodium Potassium Chloride Carbon Dioxide Anion Gap BUN Creatinine GFR Calculation BUN/Creatinine Ratio Glucose Glucometer 171 224 Calculated Osmolality Calcium Icterus Index Specimen Hemolysis 02/09/18 02/09/18 02/09/18 04:13 05:44 10:30 WBC RBC Hgb Hct MCV MCH MCHC RDW Std Deviation Plt Count MPV Immature Gran % (Auto) Neut % (Auto) Lymph % (Auto) [place] % (Auto) Eos % (Auto) Baso % (Auto) Neut # (Auto) Lymph # (Auto) [place] # (Auto) Eos # (Auto) Baso # (Auto) Abs Immat Gran (auto) Turbidity < 20 Sodium 138 Potassium 3.7 Chloride 103 Carbon Dioxide 31 H Anion Gap 4 L BUN 16.0 Creatinine 0.5 L GFR Calculation 158 BUN/Creatinine Ratio 32 H Glucose 105 Glucometer 117 108 Calculated Osmolality 267 Calcium 7.5 L Icterus Index < 2 Specimen Hemolysis < 15 02/09/18 02/09/18 02/10/18 15:03 19:49 05:45 WBC RBC Hgb Hct MCV MCH MCHC RDW Std Deviation Plt Count MPV Immature Gran % (Auto) Neut % (Auto) Lymph % (Auto) [place] % (Auto) Eos % (Auto) Baso % (Auto) Neut # (Auto) Lymph # (Auto) [place] # (Auto) Eos # (Auto) Baso # (Auto) Abs Immat Gran (auto) Turbidity Sodium Potassium Chloride Carbon Dioxide Anion Gap BUN Creatinine GFR Calculation BUN/Creatinine Ratio Glucose Glucometer 160 167 102 Calculated Osmolality Calcium Icterus Index Specimen Hemolysis 02/10/18 02/10/18 02/10/18 10:11 10:38 11:48 WBC RBC Hgb Hct MCV MCH MCHC RDW Std Deviation Plt Count MPV Immature Gran % (Auto) Neut % (Auto) Lymph % (Auto) [place] % (Auto) Eos % (Auto) Baso % (Auto) Neut # (Auto) Lymph # (Auto) [place] # (Auto) Eos # (Auto) Baso # (Auto) Abs Immat Gran (auto) Turbidity Sodium Potassium Chloride Carbon Dioxide Anion Gap BUN Creatinine GFR Calculation BUN/Creatinine Ratio Glucose Glucometer 69 82 62 Calculated Osmolality Calcium Icterus Index Specimen Hemolysis 02/10/18 12:27 WBC RBC Hgb Hct MCV MCH MCHC RDW Std Deviation Plt Count MPV Immature Gran % (Auto) Neut % (Auto) Lymph % (Auto) [place] % (Auto) Eos % (Auto) Baso % (Auto) Neut # (Auto) Lymph # (Auto) [place] # (Auto) Eos # (Auto) Baso # (Auto) Abs Immat Gran (auto) Turbidity Sodium Potassium Chloride Carbon Dioxide Anion Gap BUN Creatinine GFR Calculation BUN/Creatinine Ratio Glucose Glucometer 102 Calculated Osmolality Calcium Icterus Index Specimen Hemolysis - Diagnostic Findings Additional studies: KUB reviewed Assessment and Plan (1) Acute and chronic respiratory failure with hypoxia Status: Acute Assessment and plan: continue O2 by NC (currently 1-2 lpm at rest) to keep sat >90%. respiratory status is stable. 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 He was being managed on Cellcept and Predisone. prednisone to 10 mg daily at this time and will continue to hold Cellcept upon discharge on discharge, plan on prednisone 10 mg daily and discontinue Cellcept Current Visit: Yes (3) Pneumonia Status: Acute Current Visit: Yes - Time Spent With Patient Total time spent is greater than 50% in coordination of care (as documented) at patient's floor/unit and/or counseling patient: less than 15 minutes
[2018-02-10] MEDS: NS FLUSH BAG 500ml IV PRN (15:55)
[2018-02-10] MEDS: CEFTRIAXONE 1 G in D5W 100 ML IV SCH (15:55)
[2018-02-10] MEDS: SALINE FLUSH 10ml SYRINGE IVF PRN (15:55)
[2018-02-10] MEDS: ATORVASTATIN 20 MG TABLET PO SCH (20:40)
[2018-02-10] MEDS: ATENOLOL 25 MG TABLET PO SCH (20:40)
[2018-02-10] MEDS ORDERED: MIRTAZAPINE 15 MG TABLET PO SCH (21:00)
[2018-02-10] MEDS: LIDOCAINE REMOVAL TOP SCH (21:00)
[2018-02-11] MEDS: PANTOPRAZOLE 40 MG TABLET PO SCH (06:15)
[2018-02-11] MEDS: SALINE FLUSH 10ml SYRINGE IVF PRN (06:15)
[2018-02-11 07:28] VITALS: BP 140/66; PULSE 71; TEMP 97
[2018-02-11] MEDS: BUDESONIDE INH.SOLN 0.5mg/2ml NEB AEROSOL SCH (08:11)
[2018-02-11] MEDS: ALBUTEROL/IPRATROPIUM 2.5mg-0.5mg/3ml NEB AEROSOL SCH ×2 (08:11→11:54)
[2018-02-11] MEDS: GUAIFENESIN/D-METHORPHAN 600mg/30mg TABLET PO SCH (09:02)
[2018-02-11] MEDS: FUROSEMIDE 20 MG TABLET PO SCH (09:02)
[2018-02-11] MEDS: PredniSONE 10 MG TABLET PO SCH (09:02)
[2018-02-11] MEDS: POLYETHYL GLYCOL 3350 17gm PACKET PO SCH (09:02)
[2018-02-11] MEDS: CALCIUM 600 + VIT D 400 TABLET PO SCH (09:02)
[2018-02-11] MEDS: LIDOCAINE 5% PATCH TOP SCH (09:02)
[2018-02-11] MEDS: MULTI-VITAMIN + MINERAL TABLET PO SCH (09:02)
--- NOTE | 2018-02-11 10:30 | Extended Care Facility Orders ---
<Caty Sunshine V - Last Filed: 02/11/18 10:29> Admission Orders Admit to:: Half-Way Allergies/Adverse Reactions: Allergies No Known Drug Allergies Allergy (Unknown, Verified 01/26/18 15:30) Admitting Diagnosis: Pneumonia Hypoxia Admitting Physician: Mariaa Mercado MD Attending Physician: Mariaa Mercado MD Code Status: Full Code Anticiapted Length of Stay: 30 days or less Rehab Potential: fair Rehab Prognosis: fair Diet: 01/26/18 Dinner Regular Diet [DIET] Diet Modifications: Fluid Consistency: REGLIQU Fluid Restriction: FR 1800ML Food Consistency: SOFT Evaluations/Treatment: PT, OT Half-Way Certification: I certify that SNF services are required to be given on an Inpatient basis because of the patients need for [facility] care on a continuing basis for the condition(s) for which he/she received inpatient hospital services prior to his/her transfer to the SNF. SNF inpatient care is necessary for the following reasons - Additional Information In Event of Arrest: Start CPR,call 911,send patient to the ER Referrals: Freedom Ayala MD [Physician] - (Call for appt) Ariel Rosado DO [Primary Care Provider] - (Schedule follow up appointment for one week) Additional Orders: Abraham Cath- Bladder retraining. <Mariaa Mercado - Last Filed: 02/11/18 11:47> Admission Orders Admitting Diagnosis: Pneumonia Hypoxia Admitting Physician: Mariaa Mercado MD Attending Physician: Mariaa Mercado MD Code Status: Full Code Diet: 01/26/18 Dinner Regular Diet [DIET] Diet Modifications: Fluid Consistency: REGLIQU Fluid Restriction: FR 1800ML Food Consistency: SOFT Half-Way Certification: I certify that SNF services are required to be given on an Inpatient basis because of the patients need for [facility] care on a continuing basis for the condition(s) for which he/she received inpatient hospital services prior to his/her transfer to the SNF. SNF inpatient care is necessary for the following reasons
[2018-02-11 12:01] VITALS: RESP 18; O2SAT 94
[2018-02-11] MEDS ORDERED: NEOMYCIN/POLYMYXIN/BACITRACIN OINT PACKET TP ONE (13:48)
--- NOTE | 2018-02-11 13:59 | Discharge Summary ---
Discharge Information Date of admission: 01/26/18 16:41 Anticipated date of discharge: 02/11/18 Attending Physician: Mariaa Mercado MD Primary care physician: Ariel Rosado DO Consults: Freedom Ayala-pulmonology Dr. Freedom Black-General Surgeon - Discharge Diagnosis (1) Acute and chronic respiratory failure with hypoxia Status: Acute Sepsis syndrome manifested by temp elevation to 102.5, tachycardia and tachypnea - secondary to E. coli Bacteremia - resolved Bacteremia with E coli, resolving Pneumonia Interstitial lung disease with worsening respiratory status. Chronic hypoxic respiratory failure - on home O2 at 2L Anemia, with positive stool occult blood. General surgery consulted. Severe malnutrition - Severe Protein Calorie malnutrition Hypoalbuminemia Functional decline Anorexia Hyperkalemia, resolved Gait instability/Gen debility, PT consulted LE edema - secondary to malnutrition Right medial buttock pressure ulcer, Stage III - (POA) Chronic anemia Vitamin D Deficiency Hypocalcemia Hypermagnesemia - resolved Hypophosphatemia - resolved CAD HTN HDL GERD/esophageal stricture - S/P dilatation 11/07/17 Dysphagia - improved post esophageal stricture BPH Osteoporosis Underweight with BMI 17.2 Hx compression fracture to back - chronic back pain Hx Sara filter placement in 2007 - Procedures Procedures: None - Laboratory Labs: 02/11/18 04:06 02/11/18 04:06 Laboratory Tests 02/11/18 04:06 Magnesium 2.0 Laboratory Tests 02/05/18 00:37 Stool Occult Blood Positive A - Microbiology Microbiology 01/28/18 04:57 Peripheral/Iv Start Blood Culture - Final No Growth After 5 Days 01/28/18 04:51 Peripheral/Iv Start Blood Culture - Final No Growth After 5 Days 01/26/18 15:08 Peripheral/Iv Start Gram Stain - Final 01/26/18 15:08 Peripheral/Iv Start Blood Culture - Final Escherichia coli 01/26/18 15:02 Peripheral/Iv Start Gram Stain - Final 01/26/18 15:02 Peripheral/Iv Start Blood Culture - Final Escherichia coli - Radiology Radiology: 01/26/18- Chest Xray- 1. Chronic fibrotic lung changes are again evident. The lung lua are hypoventilated with increased density at the lung bases that may be due to atelectasis or early infiltrate. 01/30/18- Chest Xray- Stable chest with severe pulmonary fibrosis. 02/02/18- KUB Xray- Moderate gas and stool in the bowel without localized point of obstruction or marked distention. 02/10/18- KUB Xray- No evidence for obstruction or perforation. Moderate diffuse lung disease of the included portions of the lung bases likely representing chronic interstitial lung disease. - Pathology None History of Present Illness HPI: Mr Negron is an 87 y/o male with interstitial lung disease and CAD who presents to [facility] via [place] secondary to fevers and difficulty breathing. Patient 's daughter reports he was very functional (able to drive around all over without problems) until the start of this year when he developed significant functional decline. He was hospitalized at [facility] [place] October of this very due to weakness and dehydrations - thought to be exacerbation of his interstitial lung disease. 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 Has established with Dr Ayala for pulmonary care now that Dr Webster retired. Started on home O2 2 weeks ago. With O2, saturations doing well when he is at rest, but drop as he is active. Reports increasing SOA over the last week. Not having cough/congestion or pain with breathing. Progressively more weak and unsteady with more dramatic decrease today. EMS activated. Given IVF Enroute to hospital. In ED, temp elevated at 102.5 and patient tachycardic with HR in 109 to 118 range. WBC with elevation to 11.6. CXR showing increasing density to lower lung field concerning for pneumonia. As patient meeting sepsis criteria, admitted to [facility] for further care and evaluation. Anticipated length of stay is thought to be greater than 2 midnight. Objective Vital signs: Temperature 97.0 F 02/11/18 07:26 Pulse Rate 71 02/11/18 07:26 Respiratory Rate 18 02/11/18 11:55 Blood Pressure 140/66 H 02/11/18 07:26 Pulse Oximetry 94 02/11/18 11:55 Height/Weight/BMI: Height 1.8 m Weight 59.5 kg Body Mass Index 19.7 - Constitutional Present: no acute distress, well nourished, well developed - Routine HEENT Exam Eye: Present: EOMI ENT: Present: mucous membranes moist, dentition normal - Routine Respiratory Exam Present: diminished air movement. Absent: wheezes - Routine Cardiovascular Exam Present: RRR, S1, S2. Absent: murmur - Routine Abdominal Exam Present: soft, normoactive bowel sounds, non distended. Absent: tenderness - Routine Skin Exam Present: intact, dry, warm - Routine Neurological Exam Present: alert, CN II-XII intact - Routine Lymphatic Exam Lymphatic: Absent: adenopathy - Routine Psychiatric Exam Present: cooperative Hospital Course This is a general summary of the patient's hospital course. For more details refer to the complete medical record. Hospital course: Evita Negron was admitted on 01/26/18 for sepsis secondary to what was initially thought to be pulmonary source. He was started on ceftriaxone and azithromycin. DuoNebs and Pulmicort treatments were provided. He was started on high-dose IV steroids and Dr. Ayala was consulted -- steroids were slowly tapered. On his blood cultures were positive to E. coli, sensitive to ceftriaxone and he completed 2 weeks of IV antiobiotics. Course is complete at time of discharge. IVF were discontinued on 01/28/18 and he was given IV diuretics. A Abraham was inserted on 01/28/18 with anticipation of ongoing IV diuresis. By 01/30/18 the azithromycin course was completed. Labs were monitored through his hospitalization: platelets dropped to a low of 96 on 01/31/18 and then climbed back into a normal range by 02/05/18. Hgb initially was 10.6 but stabilized in the 7.6-8.7 range for the remainder of his stay. He did not require blood transfusion. Iron level was low at 38, TIBC 155. Vitamin B12 level was >1000. A consult was placed to Dr. Black for heme positive stools -- he recommended conservative treatment for PUD with Protonix. He hwas not recommending colonoscopy, and the patient would prefer not to undergo a colonoscopy either. ASA was placed on hold. Calcium was consistently low and a Vitamin D level was assessed. This too was markedly low and he was started on ergocalciferol 50,000 U per week x 8 weeks. Phosphorous was noted to be low on 02/02-02/03 but this was corrected with KPhos. He remained quite edematous, which was partially due to malnutrition. He received IV albumin 25 gm along with IV diuretics for several consecutive days with an expected reduction in edema. CO2 was climbing with IV diuresis and he was given diamox for contraction alkalosis on 02/08/18 with subsequent improvement. While PT/OT were consulted he was quite debilitated and at times was not overly motivated to participate in therapy. He needed moderate to maximal assistance. Wound care was consulted for stage III pressure injury to Left Buttock and Left Medial Buttock: recommended silver + foam dressing. By day of discharge he was on his baseline 2L of oxygen. He was down to Prednisone 10 mg daily. Abraham was discontinued on 02/09. Time spent with patient: discharge greater than 30 minutes Resuscitation Status: Full Code Discharge Plan - Discharge Disposition Discharge Date: 02/11/18 Disposition: 03 To [facility] (SNF) *Condition: Stable Reason For Visit (Visit label in EMR): Pneumonia Hypoxia - Discharge Medications *Discharge Medications: New Albuterol/Ipratropium [Duoneb] 3 ml AEROSOL Q4HR PRN each PRN Reason: Shortness Of Air Acetaminophen [Tylenol] 650 mg PO Q5H PRN tab PRN Reason: Discomfort Bisacodyl Supp [Dulcolax] 10 mg RECTALLY DAILY PRN suppositor PRN Reason: Constipation Budesonide Inhalation [Pulmicort Inhalation] 0.5 mg AEROSOL RTBID vial Calcium 600 + D [Caltrate + D] 1 tab PO BID tab Ergocalciferol (Vit. D2) [Vitamin D-2] 50,000 unit PO Q7D cap Furosemide [Lasix 20 mg Tab] 20 mg PO DAILY tab Lidocaine 5% Patch [Lidoderm] 1 patch TOP DAILY patch Mirtazapine [Remeron] 7.5 mg PO HS tab Multi-Vitamin + Mineral [Therapeutic - M] 1 tab PO DAILY tab PEG 3350 17gm PACKET [Miralax] 17 gm PO DAILY packet PredniSONE [Deltasone 10 mg] 10 mg PO WB tab Albuterol/Ipratropium [Duoneb] 3 ml AEROSOL RTBID each Guaifenesin/Dm [Mucinex Dm] 1 tab PO BID PRN tab PRN Reason: Cough Lidocaine Patch Removal [Lidoderm Patch Removal] 1 removal TOP 2100 patch Continue Atorvastatin [Lipitor] 20 mg PO HS Atenolol [Tenormin] 25 mg PO HS Meloxicam 15 mg PO DAILY PRN PRN Reason: Pain Aspirin [Aspirin EC] 81 mg PO HS Hydrocodone/APAP 7.5/325 [[place] 7.5/325] 1 tab PO Q4H PRN #20 tab PRN Reason: Pain Pantoprazole Tab [Protonix Tab] 40 mg PO ACB #30 tab Discontinued PredniSONE [Deltasone 20 mg] 20 mg PO WB Mycophenolate Mofetil 1,500 mg PO BID - Discharge Packet/Instructions *Diet: Regular Diet. 1800ml fluid restriction. Encourage nutritional suplementation with meals TID *Activity: As tolerated. Up with assist. *Pain Management/Treatment: See MAR *Wound Care: Aquacel to wounds, cover with foam dressing, change every 3 days. Follow-up at wound care in 2 weeks Additional Instructions: Blood glucose checks BID and PRN. Notify attending if above 250 x 2 checks. Routine hypoglycemia protocol. O2 @ 2L/NC. Abraham catheter- bladder training. Will need to monitor for urinary retention post removal. Inserted 02/09/18 *Expected Signs/Symptoms: Cough, some dyspnea on exertion. *Notify Physician if: Per Routine orders *During Business Hours Contact: Per routine *After Business Hours Contact: Per routine *Pending Lab/Results: Follow up w/Provider [facility] Phone Call Appointment: N/A - Referrals/Follow Up *Referrals/Follow Up: Freedom Ayala MD [Physician] - (Call for appt) Ariel Rosado DO [Primary Care Provider] - (Schedule follow up appointment for one week) - Patient Handouts Patient Handouts: Pneumonia (GEN) - Dismissal Complete Discharge Instructions are:: Complete Physician Narrative - Narrative Physician: Mariaa Mercado MD Attestation Narrative: Date: 02/11/18 Time: 7991 I have independently interviewed and examined patient. Patient chart reviewed. Case discussed with my [employer]. Care plan developed with my supervision, agree with above. Patient resting in bed at the time of interview. Reports need to be repositioned. Patient has very gradual trend for improvement during hospital stay. Health Consultant considering interstitial lung disease. Patient has very poor appetite with malnutrition. Chronic hypoxemic respiratory failure requiring 2 L supplemental oxygen. Continues to have low back pain, positional. No reported abdominal pain, no flank pain, no dysuria. On review of records, patient's hemoglobin ranging from 7.68.9 over the past 2 weeks. Hemoglobin was 10.6 initially on admission. Otherwise, patient encouraged to participate in physical therapy exercises on discharge. Wound care consulted after patient noted to have a pressure ulcer on left buttock. General surgery was consulted with positive stool occult, Dr. Black Recommended conservative management. Attempt to bladder retraining and DC Abraham catheter not successful. Abraham catheter will remain in place on discharge. Physical exam: AAO x 3, NAD, malnourished patient. PERRLA, EOMI S1 and S2 heard on auscultation, no murmurs Lungs clear to auscultation bilaterally, no wheezing, no crackles Abdomen soft, nontender, positive bowel sounds Trace edema bilateral lower extremities.
== END 2018-02-11 14:35 | DRG 871 ==
LOC: ED 14:44 → SUATTDRO 16:41 → EDHOLD 16:41 → MED 17:00
PROVIDERS: ADMIT Internal Medicine; ATTEND Internal Medicine